=== PATIENT | female | born 1990 | race Caucasian/White ===

== ENCOUNTER 2020-10-22 01:51 | Emergency (ER) | payer OTHER, SELFPAY ==
[2020-10-22 01:59] VITALS: BP 130/78; PULSE 96; RESP 18; TEMP 37.1; O2SAT 98; BMI 20.6
--- NOTE | 2020-10-22 03:31 | ED.SKABFB ---
HPI - Skin/Abscess/Foreign Bdy General Chief complaint: Skin/Abscess/Foreign Body Stated complaint: infection Time Seen by Provider: 10/22/20 03:03 Source: patient Mode of arrival: ambulatory Limitations: no limitations History of Present Illness MD complaint: abscess/boil Onset (ago): day(s) (4) Tetanus up to date: yes Location: LUE Severity: moderate Quality: aching Pain Consistency: constant Relieving factors: none Exacerbating factors: movement Context: other (IVDA, hx of MRSA and boils, abscess noted then yesterday it drained on its own and she feels much better) Associated symptoms: denies other symptoms Treatments prior to arrival: bandages Related Data Previous Rx's Medication Instructions Recorded cephalexin 500 mg PO TID 7 Days #21 cap 10/22/20 doxycycline hyclate 100 mg PO BID 7 Days #14 cap 10/22/20 Allergies Allergy/AdvReac Type Severity Reaction Status Date / Time No Known Allergies Allergy Verified 10/22/20 01:57 [No Known Allergies*] Review of Systems Review of Systems: Constitutional : No Fever, No Chills ENT/Mouth : No sore throat, No Rhinorrhea Eyes: No Eye Pain, No Swelling, No Redness Cardiovascular : No Chest Pain, No SOB Respiratory : No Cough, No Sputum Gastrointestinal : No Nausea, No Vomiting, No Diarrhea, No abdominal Pain Genitourinary : No Dysuria, No Hematuria Musculoskeletal : No joint pain, No Myalgias, No Joint Swelling Skin : pos Skin Lesions, positive skin rash Neuro : No Weakness, No Numbness, No Headache Psych : No Anxiety, No Depression Heme/Lymph: No Bruising, No Bleeding, pos Lymphadenopathy Endocrine : No Polyuria, No Polydipsia All other systems reviewed and are negative [facility] Past Medical History Attestation statement: The following information was validated with the patient. Medical History (Updated 10/22/20 @ 04:24 by Fallon Mcfarlane DO) MRSA (methicillin resistant staph aureus) culture positive Opiate dependence Social History Social History (Updated 10/22/20 @ 04:02 by Fallon Mcfarlane DO) Smoking Status: Unknown if ever smoked Substance Use Type: Heroin and IV Drugs Advance Directives: No Advance Directives Information Provided: No Physical Exam Vital Signs: Vital Signs: Last Vital Signs Temp 98.9 F 05/19/21 03:58 Pulse 80 10/22/20 04:00 Resp 16 10/22/20 04:00 BP 116/59 L 10/22/20 04:00 Pulse Ox 98 10/22/20 04:00 Body Mass Index 20.6 Appearance: Alert. Oriented X3. No acute distress. mild nontender small less than 1cm lymph nodes in groin and ant cervical chain Eyes: Pupils equal, round and reactive to light. ENT: Pharynx normal. Neck: Normal inspection. Neck supple. CVS: Normal heart rate and rhythm. Pulses normal. Chest: soft mobile non fluctuant area noted 5 o clock r breast Respiratory: No respiratory distress. Breath sounds normal. Abdomen: Soft and nontender. Skin: Skin warm and dry. Normal skin color. Normal skin turgor. Extremities: No lower extremity edema. L posterior forearm - drained abscess with mild erythema and surrounding warmth no lymphangitis, distal NV intact Neuro: Oriented X 3. No motor deficit. No sensory deficit. MDM - Skin/Abscess/Foreign Bdy MDM Narrative Medical decision making narrative: 29 yo female with hx of IVDA and MRSA here with 4 days of boil that has self expressed no further fluctuance or drainage but has mild cellulitis - PO abx ordered, also c/o chronic LAD - cbc and HIV ordered, also c/o R breast lump noted 1 week ago - no signs of infection discussed follow up as outpatient for mammogram. Discharge Plan Discharge Clinical Impression: Cellulitis, Abscess Patient Disposition: Home, Self-Care Instructions: Cellulitis (ED) Additional Instructions: return to ED for any worsening symptoms or concerns monitor for worsening redness/fevers/drainage HIV test pending can take up to 3 days call family doctor for mammogram or [facility] [address] [phone] Prescriptions: New doxycycline hyclate 100 mg capsule 100 mg PO BID 7 Days Qty: 14 RF: 0 cephalexin 500 mg capsule 500 mg PO TID 7 Days Qty: 21 RF: 0 Referrals: Rosa Elena Morel MD [Primary Care Provider] - 2 days (if not better)
[2020-10-22 03:58] VITALS: BP 116/59; PULSE 82; RESP 18; TEMP 37.2; O2SAT 98
[2020-10-22] MEDS: cephALEXin 500 MG CAPSULE PO (03:59)
[2020-10-22 04:00] VITALS: BP 116/59; PULSE 80; RESP 16; O2SAT 98
[2020-10-22 04:25] LABS: Basophils Percent Auto 0.3 % (0-2); Eosinophils Percent Auto 0.5 % (0-4); Hematocrit 34.6 % (37-47); Hemoglobin 11.1 g/dl (12.0-16.0); Imm Gran Abs Auto 0.01 X10*3/uL (0.00-0.03); Imm Gran Pct Auto 0.2 % (0.0-0.4); Lymphocytes Absolute Auto 1.9 X10*3/uL (1.2-4.9); Lymphocytes Percent Auto 29.9 % (20-40); MANUAL DIFF FLAG NO; Mean Corpuscular HGB Conc 32.1 g/dl (31.0-35.0); Mean Corpuscular Hemoglobin 27.3 pg (27.0-33.0); Mean Corpuscular Volume 85.2 fL (80-98); Mean Platelet Volume 10.1 fL (9.4-12.3); Monocytes Absolute Auto 0.7 X10*3/uL (0.1-1.2); Monocytes Percent Auto 10.3 % (2-11); Neutrophils Absolute Auto 3.7 X10*3/uL (2.0-8.3); Neutrophils Percent Auto 58.8 % (45-73); Platelet Count 171 X10*3/uL (160-400); Red Blood Count 4.06 X10*6/uL (4.20-5.50); Red Cell Distribution Width 13.3 % (11.0-16.0); White Blood Count 6.3 X10*3/uL (4.8-10.8)
[2020-10-22 08:28] LABS: HIV AB/AG Nonreactive (Nonreactive); HIV Num 1 0.07 S/CO (0.00-0.99)
== END 2020-10-22 04:48 | disposition home or self-care (01) ==
PROVIDERS: Emergency Provider Emergency Medicine; PCP Internal Medicine
DX: L02.414 Cutaneous abscess of left upper limb (principal); L03.114 Cellulitis of left upper limb; M79.632 Pain in left forearm; Z79.899 Other long term (current) drug therapy; F11.90 Opioid use, unspecified, uncomplicated
CPT/HCPCS: 36415; 85025; 87389; 99284

== ENCOUNTER 2021-01-18 21:43 | Emergency (ER) | payer OTHER, SELFPAY ==
--- NOTE | ~2021-01-18 | US_ITS ---
EXAMINATION: US VENOUS WITH DOPPLER UPPER EXTREMITY, LEFT CLINICAL INFORMATION: Left upper extremity swelling. History of cocaine injection. COMPARISON: None TECHNIQUE: Ultrasound of the upper extremity is performed using compression sonography and color and pulse Doppler flow with assessment of augmentation of flow. There is also imaging and Doppler assessment of the jugular and subclavian veins. Spectral analysis with color-flow imaging is performed. FINDINGS: Respiratory variation, normal compression, and augmented flow are noted throughout the upper extremity including the axillary, brachial, cubital, and radial and ulnar veins. There is normal flow in the internal jugular and subclavian veins. There is no visible deep or superficial thrombophlebitis. If the patient's symptoms progress, a followup ultrasound in 5 -7 days might be of value to exclude proximal propagation from a nonvisualized distal arm vein. Multiple lymph nodes are noted in the arm, including in the vicinity of the subclavian vein measuring 2.8 x 0.5 x 1.5 cm, in the proximal upper arm measuring 1.4 x 0.6 x 0.7 cm and in the mid arm measuring 1.3 x 0.6 x 0.7 cm. Scanning in the area of open wound in the left upper forearm significant soft tissue edema with mild hyperemia is noted without discrete fluid collection. US/US venous duplex UE LT IMPRESSION: No DVT demonstrated in the left upper extremity. Soft tissue edema with mild hyperemia in the area of open wound in the left forearm, without discrete fluid collection. A few lymph nodes are noted in the arm as described above, most probably reactive.
[2021-01-18 21:46] VITALS: BP 120/73; PULSE 80; RESP 18; TEMP 37.1; O2SAT 97; BMI 20.5
--- NOTE | 2021-01-18 23:55 | ED.SKABFB ---
HPI - Skin/Abscess/Foreign Bdy General Chief complaint: Skin/Abscess/Foreign Body Stated complaint: Red Inflamed skin Time Seen by Provider: 01/18/21 22:11 Source: patient Mode of arrival: ambulatory Limitations: no limitations History of Present Illness HPI narrative: 30 y/o female with history of polysubstance abuse, current IV drug use with heroin and cocaine, on methadone 100 mg per day, history of multiple abscesses in the past with history of MRSA who presents with 4 days of red, painful left forearm abscess. She drained a significant amount of pus out of the abscess yesterday. She reports redness is spreading and her forearm is getting larger. She injected cocaine and heroin into the left forearm just before the redness and boil developed. She denies fever or chills at home. She has pain with movement of her arm but is able to fully extend and flex her elbow. She missed her last few days of methadone and has been using IV heroin and cocaine. MD complaint: abscess/boil Onset (ago): day(s) (4) Tetanus up to date: unsure Location: LUE Severity: severe Severity scale (1-10): 8 Quality: aching and sharp Pain Consistency: constant Relieving factors: rest Exacerbating factors: palpation and movement Context: IVDA Associated symptoms: denies other symptoms Treatments prior to arrival: attempted to drain pus at home Related Data Previous Rx's Medication Instructions Recorded cephalexin 500 mg capsule 500 mg PO TID 7 Days #21 cap 10/22/20 doxycycline hyclate 100 mg capsule 100 mg PO BID 7 Days #14 cap 10/22/20 cephalexin 500 mg capsule 500 mg PO Q6H 7 Days #28 cap 01/19/21 sulfamethoxazole 800 1 tab PO BID #20 tab 01/19/21 mg-trimethoprim 160 mg tablet (Bactrim DS) Allergies Allergy/AdvReac Type Severity Reaction Status Date / Time No Known Allergies Allergy Verified 10/22/20 01:57 [No Known Allergies*] Review of Systems Constitutional: Constitutional: Denies chills and Denies fever(s) Eyes: Eyes: Reports no additional eye complaints ENT: Denies neck pain and Denies sore throat Cardiovascular: Cardiovascular: Denies chest pain Respiratory: Respiratory: Denies cough and Denies wheezing Gastrointestinal: Gastrointestinal: Denies abdominal pain, Denies diarrhea, Denies nausea and Denies vomiting Genitourinary: Genitourinary: Denies dysuria Musculoskeletal: Musculoskeletal: Reports myalgias and Denies neck pain Integumentary/Breasts: Skin/Breast: Reports acne, Reports furuncle, Reports swelling, Reports lesions, Reports erythema, Reports skin pain, Reports skin swelling and Reports wounds Psychiatric: Psychiatric: Reports anxiety Hematologic/Lymphatic: Hematologic/Lymphatic: Denies easy bleeding, Denies easy bruising and Denies lymphadenopathy Allergic/Immunologic: Allergic/Immunologic: Denies wheezing PMFSH Past Medical History Attestation statement: The following information was validated with the patient. Medical History MRSA (methicillin resistant staph aureus) culture positive Opiate dependence Social History Social History (Updated 10/22/20 @ 04:02 by Fallon Mcfarlane DO) Substance Use Type: Heroin and IV Drugs Advance Directives: No Advance Directives Information Provided: No Patient : No Physical Exam Vital Signs: Vital Signs: Last Vital Signs Temp 98.4 F 01/18/21 23:58 Pulse 67 01/18/21 23:58 Resp 18 01/18/21 23:58 BP 105/52 L 01/18/21 23:58 Pulse Ox 100 01/18/21 23:58 Body Mass Index 20.5 Const: General: cooperative, comfortable, no acute distress, alert, awake and poor hygiene Nutritional Appearance: average body habitus Orientation/consciousness: patient oriented x3 Limitations: no limitations HENMT: Head: Yes normal to inspection Ears: hearing grossly normal bilaterally and external ears normal General nose exam: Normal external nose present and Normal nares present Face and sinus: Yes face symmetric and Yes other (scabbing lesions scattered on face) Mouth: Normal oral and palatal mucosa present, lip normal, tongue normal and moist mucous membranes Teeth and gingiva: dentition normal and gingiva normal Throat: Yes posterior oropharynx normal, Yes tonsils normal and Yes uvula midline Eyes: General: appearance normal, both eyes and all related structures Pupils: Equal, round and reactive pupils present EOM: EOMs intact bilaterally Neck: Neck: Yes normal visual inspection, Yes full ROM and Yes no lymphadenopathy Chest: Chest palpation & inspection: normal inspection of the chest Resp: Effort & Inspection: normal respiratory effort and able to speak in complete sentences Auscultation: clear to auscultation bilaterally Cardio: Rate: regular rate Rhythm: regular rhythm Heart sounds: S1 normal heart sound present and S2 normal heart sound present GI: Inspection: Yes normal to inspection Palpation (GI): Soft to palpation, not firm and nontender Auscultation: normal bowel sounds Neuro: General: patient oriented x3 Cranial nerves: Yes Equal, round and reactive pupils present Cognition (Neuro): normal cognition Course Course Course Narrative: 30 y/o female presenting with left forearm cellultis and abscess worsening over the last 4 days in the setting of IVDA. US of arm ordered for DVT r/o and soft tissue collection. IV abx, cultures ordered. Given exam finding she will likely require admission for IV abx. Reevaluation(s) Reevaluation #1: Difficult IV access. Attempted EJ by Dr Mcfarlane unsuccessful because patient was uncooperative. Reevaluation #2: US guided IV access established and labs sent. Patient spoke to several times about recommendation for admission, initially agreeable but ultimately she decided that she wants to leave the hospital. She wants to get back on her methadone. We discussed the risks of leaving against advice including sepsis, compartment syndrome, necrosis, and . She expressed understanding. Will discharge with PO antibiotics. Area on her left arm was marked. She left AMA at 1:45am. MDM - Skin/Abscess/Foreign Bdy Lab Data Result diagrams: 01/19/21 00:58 01/19/21 00:58 Labs: Lab Results 01/19/21 01/19/21 01/19/21 Range/Units 00:58 00:58 00:58 WBC 17.9 H (4.8-10.8) X10*3/uL RBC 4.11 L (4.20-5.50) X10*6/uL Hgb 11.1 L (12.0-16.0) g/dl Hct 34.6 L (37-47) % MCV 84.2 (80-98) fL MCH 27.0 (27.0-33.0) pg MCHC 32.1 (31.0-35.0) g/dl RDW 14.3 (11.0-16.0) % Plt Count 241 D (160-400) X10*3/uL MPV 10.2 (9.4-12.3) fL Immature Gran % (Auto) 0.4 (0.0-0.4) % Neut % (Auto) 82.6 H (45-73) % Lymph % (Auto) 10.8 L (20-40) % [place] % (Auto) 5.9 (2-11) % Eos % (Auto) 0.1 (0-4) % Baso % (Auto) 0.2 (0-2) % Lymph # (Auto) 1.9 (1.2-4.9) X10*3/uL [place] # (Auto) 1.1 (0.1-1.2) X10*3/uL Eos # (Auto) 0.0 (0.0-0.4) X10*3/uL Baso # (Auto) 0.0 (0.0-0.2) X10*3/uL Abs Immat Gran (auto) 0.07 H (0.00-0.03) X10*3/uL Absolute Neuts (auto) 14.8 H (2.0-8.3) X10*3/uL Absolute Nucleated RBC 0.000 (0.0-0.012) X10*3/uL Nucleated RBC % (auto) 0.0 (0.0-0.2) /100WBC Lactic Acid 1.6 (0.5-2.0) mmol/L COVID-19 (MARICARMEN) Negative (Negative) COVID-19 Clin Com See Note Discharge Plan Discharge Clinical Impression: Cellulitis, Abscess of skin or subcutaneous tissue Patient Disposition: Left Against Medical Advice Instructions: Cellulitis (ED), Abscess (ED), Warm Compress or Soak (ED) Additional Instructions: Use warm compresses to your arm several times per day. Take the antibiotics as prescribed. Come back to the ER at any time if you decide you are agreeable to admission or if any of your symptoms worsen. Prescriptions: New sulfamethoxazole-trimethoprim [Bactrim DS] 800-160 mg tablet 1 tab PO BID Qty: 20 RF: 0 cephalexin 500 mg capsule 500 mg PO Q6H 7 Days Qty: 28 RF: 0 No Action doxycycline hyclate 100 mg capsule 100 mg PO BID 7 Days Qty: 14 RF: 0 cephalexin 500 mg capsule 500 mg PO TID 7 Days Qty: 21 RF: 0 Stand Alone Forms: Against Medical Advice
[2021-01-18 23:58] VITALS: BP 105/52; PULSE 67; RESP 18; TEMP 36.9; O2SAT 100
--- NOTE | 2021-01-19 00:16 | PC.NURSE ---
Rn to bedside for IV insertion and blood work. Pt expressed her knowledge of being a difficult stick but agreed to allow this RN to look. After 1 unsuccessful attempt this RN notified the charge out clerk of the need for blood cultures x2, lactic acid, general labs and IV placement. hand mexican food maker and EDT to bedside for attempt
--- NOTE | 2021-01-19 00:31 | PC.NURSE ---
nursery worker returns to nurses station after failed iv attempt. RN did have to attempt access to the foot but was unable to advance the line. MD Mcfarlane to bedside for EJ placement as access has been unsuccessful despite multiple attempts by different staff members. MD Mcfarlane to obtain all necessary labs required at this time.
--- NOTE | 2021-01-19 00:47 | PC.NURSE ---
MD CAPUTO AND PA TO BEDSIDE TO ATTEMPT EJ AFTER FAIL PERIPHERL IV INSERTION X2. PER MD CAPUTO, PT MOVED WHILE INSERTING IV AND ACCIDENTALLY CAUSED THE LUMEN TO DISPLACE. PRESSURE APPLIED AND BLEEDING CONTROLLED. EDT REMAINED AT BEDSIDE TO PROVIDE SUPPORT AND COMFORT. PT AGREEABLE TO ALLOW INTERIM CONTROLLER TO PLACE US GUIDED IV; INTERIM CONTROLLER PRESENT ATTEMPTING IV PLACEMENT UNDER US AT THIS TIME.
--- NOTE | 2021-01-19 01:02 | PC.NURSE ---
coating line worker to bedside for US guided IV insertion; labs were collected however #18G to the right arm could not be threaded and was discontinued. Hospitalist to bedside to ask patient if she is agreeable to admission. Pt to be provided with food and beverage per request and provider approval. Pt refused her PO ativan that was ordered by PA as she stated well if they aren't going into my neck I don't think I need it. Pt will continue to be monitored
[2021-01-19 01:06] LABS: MANUAL DIFF FLAG NO
[2021-01-19 01:20] LABS: Basophils Percent Auto 0.2 % (0-2); Eosinophils Percent Auto 0.1 % (0-4); Hematocrit 34.6 % (37-47); Hemoglobin 11.1 g/dl (12.0-16.0); Imm Gran Abs Auto 0.07 X10*3/uL (0.00-0.03); Imm Gran Pct Auto 0.4 % (0.0-0.4); Lymphocytes Absolute Auto 1.9 X10*3/uL (1.2-4.9); Lymphocytes Percent Auto 10.8 % (20-40); Mean Corpuscular HGB Conc 32.1 g/dl (31.0-35.0); Mean Corpuscular Volume 84.2 fL (80-98); Mean Platelet Volume 10.2 fL (9.4-12.3); Monocytes Absolute Auto 1.1 X10*3/uL (0.1-1.2); Monocytes Percent Auto 5.9 % (2-11); Neutrophils Absolute Auto 14.8 X10*3/uL (2.0-8.3); Neutrophils Percent Auto 82.6 % (45-73); Platelet Count 241 X10*3/uL (160-400); Red Blood Count 4.11 X10*6/uL (4.20-5.50); Red Cell Distribution Width 14.3 % (11.0-16.0); White Blood Count 17.9 X10*3/uL (4.8-10.8)
[2021-01-19 01:23] LABS: COVID-19 Test Negative (Negative); IDNOW Serial# 9DD0AD1C
[2021-01-19 01:25] LABS: Lactic Acid 1.6 mmol/L (0.5-2.0)
--- NOTE | 2021-01-19 01:25 | PC.NURSE ---
EDT TO BEDSIDE TO EDUCATE PT ON PLAN FOR CHEM 7 REDRAW AND PT IS REFUSING TO ALLOW STAFF TO REDRAW HER AND IS REQUESTING DISCHARGE. PA MADE AWARE
[2021-01-19] MEDS: Ibuprofen 600 MG TABLET PO (01:45)
[2021-01-19] MEDS: cephALEXin 500 MG CAPSULE PO (01:45)
[2021-01-19 02:00] VITALS: BP 114/76; PULSE 84; RESP 20; O2SAT 99
== END 2021-01-19 02:19 | disposition left against medical advice (07) ==
PROVIDERS: Physician Assistant; Student in an Organized Health Care Education/Training Program; Emergency Provider Emergency Medicine; PCP Internal Medicine
DX: L03.114 Cellulitis of left upper limb (principal); F11.10 Opioid abuse, uncomplicated; F14.10 Cocaine abuse, uncomplicated; Z20.822 Contact with and (suspected) exposure to COVID-19; Z79.899 Other long term (current) drug therapy; Z71.51 Drug abuse counseling and surveillance of drug abuser
CPT/HCPCS: 36415; 83605; 85025; 87040; 87635; 93971; 96365; 96367; 99284

== ENCOUNTER 2021-01-20 19:43 | Emergency (ER) | payer OTHER, SELFPAY ==
[2021-01-20 21:21] VITALS: BP 103/48; PULSE 80; RESP 18; TEMP 37.1; O2SAT 99; BMI 20.5
[2021-01-20 22:49] LABS: Lactic Acid 1.6 mmol/L (0.5-2.0)
--- NOTE | 2021-01-21 02:12 | ED_ITS ---
HPI - Skin/Abscess/Foreign Bdy General Chief complaint: Wound/Laceration Stated complaint: ARM INFECTION Time Seen by Provider: 01/21/21 02:12 Source: patient Mode of arrival: ambulatory History of Present Illness HPI narrative: 30-year-old female presents with same left upper extremity cellulitis and pain that she was evaluated for on 01/18 and was discharged on antibiotics at that time patient states that the pain has worsened and that she is having difficulty with moving the upper extremity. She however is declining IV access and was informed that this poses difficulty with obtaining access to administer IV antibiotics, but she remains adamant. She states that she has been taking the antibiotics but that it does not seem to be helping. She describes chills but denies any fevers. Related Data Previous Rx's Medication Instructions Recorded cephalexin 500 mg capsule 500 mg PO TID 7 Days #21 cap 10/22/20 doxycycline hyclate 100 mg capsule 100 mg PO BID 7 Days #14 cap 10/22/20 cephalexin 500 mg capsule 500 mg PO Q6H 7 Days #28 cap 01/19/21 ibuprofen 400 mg tablet 400 mg PO Q8H PRN #10 tab 01/19/21 sulfamethoxazole 800 1 tab PO BID #20 tab 01/19/21 mg-trimethoprim 160 mg tablet (Bactrim DS) Allergies Allergy/AdvReac Type Severity Reaction Status Date / Time No Known Allergies Allergy Verified 01/20/21 21:21 [No Known Allergies*] Review of Systems Review of Systems: Pertinent positives and negatives as stated in HPI 10 point review of systems is otherwise negative. [facility] Past Medical History Source: nursing notes reviewed Medical History MRSA (methicillin resistant staph aureus) culture positive Opiate dependence Social History Social History Substance Use Type: Heroin and IV Drugs Advance Directives: No Advance Directives Information Provided: No Patient : No Physical Exam Vital Signs: Vital Signs: Last Vital Signs Temp 98.7 F 01/20/21 21:21 Pulse 96 01/21/21 02:54 Resp 16 01/21/21 02:54 BP 132/69 01/21/21 02:54 Pulse Ox 99 01/21/21 02:54 Body Mass Index 20.5 VITAL SIGNS: Reviewed. GENERAL: Chronically ill, well nourished, mild distress. HEAD: Normocephalic/atraumatic EYES: PERRLA, EOMI OROPHARYNX: no oral lesions noted, posterior pharynx clear LUNGS: Normal breath sounds. No adventitious sounds or accessory muscle use. SpO2<99> CARDIOVASCULAR: Regular rate and rhythm without noted murmurs ABDOMEN: Soft, non-tender, non-distended with bowel sounds. LEFT UPPER EXTREMITY WITH SIGNIFICANT CELLULITIS FROM WRIST PROXIMAL AND TO DISTAL UPPER ARM THAT IS TENSE, PULSES ARE PALPABLE SKIN: Inspection of the skin reveals no rashes, ulcerations, jaundice, pallor, or petechiae. NEUROLOGIC: Alert and oriented x 4. Strength and sensation to light touch were grossly intact x 4. Course Course Course Narrative: 30-year-old female with history and clinical presentation consistent with IVDA and again declining EJ as well as ultrasound peripheral IV access. She does have oral antibiotics and then informed by nursing staff the patient has eloped. MDM - Skin/Abscess/Foreign Bdy Lab Data Labs: Lab Results 01/20/21 01/21/21 01/21/21 Range/Units 21:54 02:31 02:31 Lactic Acid 1.6 (0.5-2.0) mmol/L Urine Test NEGATIVE (NEGATIVE) COVID-19 (MARICARMEN) Negative (Negative) COVID-19 Clin Com See Note Discharge Plan Discharge Clinical Impression: Abscess, Cellulitis of left upper extremity Patient Disposition: Elopement Prescriptions: No Action doxycycline hyclate 100 mg capsule 100 mg PO BID 7 Days Qty: 14 RF: 0 cephalexin 500 mg capsule 500 mg PO TID 7 Days Qty: 21 RF: 0 sulfamethoxazole-trimethoprim [Bactrim DS] 800-160 mg tablet 1 tab PO BID Qty: 20 RF: 0 cephalexin 500 mg capsule 500 mg PO Q6H 7 Days Qty: 28 RF: 0 ibuprofen 400 mg tablet 400 mg PO Q8H PRN (Reason: pain) Qty: 10 RF: 0 Interventions: ED Discharge Assessment Last Done: 01/21/21 04:04 Discharge Date/Time: 01/21/21 04:07
[2021-01-21 02:41] LABS: UPreg QC Valid YES; Urine Pregnancy NEGATIVE (NEGATIVE)
--- NOTE | 2021-01-21 02:51 | PC.NURSE ---
Multiple attempts to gain IV access but patient not cooperating. MD at bedside for EJ placement and patient refusing. Patient has no viable veins for IV access except EJ and she will not let MD place one.
[2021-01-21 02:54] VITALS: BP 132/69; PULSE 96; RESP 16; O2SAT 99
[2021-01-21 02:58] LABS: COVID-19 Test Negative (Negative)
[2021-01-21 04:48] LABS: Glucose Urine UA NEG (NEG); Leukocyte Esterase Urine 3+ (NEG); Nitrite Urine NEG (NEG); UACC Culture Trigger YES; Urine Blood 1+ (NEG); Urine Ketones 15 MG/DL (NEG); Urine Protein NEG (NEG-TRACE)
[2021-01-21 04:53] LABS: Appearance Urine HAZY; Color Urine YELLOW
[2021-01-21 04:54] LABS: Bacteria Urine 4+ /LPF; Mucus Urine 2+ /LPF; Squamous Epithelial Cell Urine 2+ /LPF; WBC Urine 30-49 /HPF (0-4)
[2021-01-21 05:30] LABS: Amphetamine Screen Urine Not Detected (Not Detect); Barbiturates, Urine Not Detected (Not Detect); Benzodiazepines Screen Urine Not Detected (Not Detect); Cannabinoid Screen Urine Not Detected (Not Detect); Cocaine Screen Urine POSITIVE (Not Detect); Fentanyl, urine POSITIVE (Not Detect); Opiate Screen Urine POSITIVE (Not Detect); Phencyclidine Screen Urine Not Detected (Not Detect)
== END 2021-01-21 04:07 | disposition left against medical advice (07) ==
PROVIDERS: Emergency Provider Student in an Organized Health Care Education/Training Program; PCP Internal Medicine
DX: L03.114 Cellulitis of left upper limb (principal); L02.414 Cutaneous abscess of left upper limb; F11.20 Opioid dependence, uncomplicated; Z86.14 Personal history of Methicillin resistant Staphylococcus aureus infection; Z20.822 Contact with and (suspected) exposure to COVID-19
CPT/HCPCS: 36415; 80307; 81001; 81025; 83605; 87040; 87086; 87635; 96365; 99283; 99284

== ENCOUNTER 2023-07-04 21:54 | Inpatient (IN) | payer OTHER, SELFPAY ==
--- NOTE | ~2023-07-04 | XR_ITS ---
EXAMINATION: XR FOOT, LEFT CLINICAL INFORMATION: Swelling, redness COMPARISON: None available. TECHNIQUE: AP, lateral, and oblique views of the left foot. FINDINGS: Osseous alignment is anatomic. No acute fracture is seen. Soft tissue swelling is noted along the dorsum of the foot. XR/XR foot LT 2V IMPRESSION: Dorsal soft tissue swelling. No acute osseous findings.
--- NOTE | ~2023-07-04 | XR_ITS ---
EXAMINATION: XR HAND, LEFT CLINICAL INFORMATION: Swelling, redness COMPARISON: None available. TECHNIQUE: PA, lateral, and oblique views of the left hand. FINDINGS: Osseous alignment is anatomic. No acute fracture is seen. Diffuse soft tissue swelling noted. XR/XR hand LT 2V IMPRESSION: Soft tissue swelling without acute osseous findings.
--- NOTE | ~2023-07-04 | CT_ITS ---
EXAMINATION: CT CHEST WITH CONTRAST CLINICAL INFORMATION: Shortness of breath, question pulmonary infarct, history of IV drug abuse COMPARISON: 01/03/2020 TECHNIQUE: Multidetector volumetric CT imaging of the chest was obtained after the administration of 65 mL of Omnipaque 350 intravenous contrast without immediate adverse reactions. Axial MIP volume rendering provided. Sagittal and coronal reformatted images were obtained. This CT examination was performed using dose optimization techniques as appropriate, variously including the following: *Automated exposure control *Adjustment of mA and/or kV according to patient size (this includes techniques or standardized protocols for targeted exams where dose is matched to indication/reason for exam; i.e. extremities or head) *Use of iterative reconstruction technique DLP: 175 mGy-cm FINDINGS: LUNGS: There is a 4 mm nodular focus in the left apex on image 75/531. There is a peripheral nodular focus in the anterior left lower lobe measuring 9 mm on image 296/531 with subtle adjacent groundglass opacity. Curvilinear opacity in the apical right upper lobe suggests atelectasis or scarring. There is also a small curvilinear opacity in the right middle lobe laterally. There is a 4 mm nodular focus in the right lower lobe on image 259/531. Minimal dependent atelectasis in the bilateral lower lobes. MEDIASTINUM: The visualized thyroid gland is unremarkable. Mild residual thymic tissue is suspected in the anterior mediastinum. There are subcentimeter mediastinal lymph nodes within the range of normal variation. Cardiac size is within normal limits; no pericardial effusion. The aorta is unremarkable. PLEURA: No pneumothorax or pleural effusion. AXILLA: There are several asymmetrically prominent left axillary lymph nodes measuring up to 1.1 cm in short axis dimension. No right axillary lymphadenopathy. UPPER ABDOMEN: Visualized spleen appears borderline enlarged. OSSEOUS STRUCTURES: Mild scattered degenerative endplate changes in the spine. CT/CT chest w IV con IMPRESSION: 1. Peripheral nodular focus in the anterior left lower lobe measuring 9 mm with subtle adjacent groundglass opacity. Given patient history, differential considerations could include a small focus of septic embolus or pulmonary infarct. Malignant etiology is considered overall less likely given patient age. However, in the absence of prior studies for comparison, follow-up chest CT in 3 months is recommended. 2. Few additional nodular foci as described above measuring up to 4 mm, for which attention on follow-up is recommended. 3. Several asymmetrically prominent left axillary lymph nodes measuring up to 1.1 cm in short axis dimension. These may be reactive given the history of IV drug use, though attention on follow-up is also recommended. 4. Visualized spleen appears borderline enlarged.
[2023-07-04 22:04] VITALS: BP 125/77; PULSE 91; RESP 16; TEMP 36.7; O2SAT 97; BMI 20.6
--- NOTE | 2023-07-05 00:10 | PC.NURSE ---
at bedside attempting ultrasound guided IV.
--- NOTE | 2023-07-05 00:22 | PC.NURSE ---
Addendum entered by Penny Nassar 07/05/23 05:53: left foot and right hand swelling Original Note: pt from home reporting onset of right hand swelling and right foot swelling for 3 days. pt reports she has been seen for this in the past. pt reports pain to the right foot but denies pain to the hand. pt reports it hurts to walk on the foot at times. dr. whitfield at bedside and placed ultrasound guided IV, 20G placed, labs obtained and sent to lab.
[2023-07-05 00:27] LABS: MANUAL DIFF FLAG NO
[2023-07-05 00:29] LABS: Basophils Percent Auto 0.3 % (0-2); Hematocrit 35.1 % (37.0-47.0); Hemoglobin 11.2 g/dl (12.0-16.0); Imm Gran Abs Auto 0.03 X10*3/uL (0.00-0.03); Imm Gran Pct Auto 0.4 % (0.0-0.4); Mean Corpuscular HGB Conc 31.9 g/dl (31.0-35.0); Mean Corpuscular Hemoglobin 26.4 pg (27.0-33.0); Mean Corpuscular Volume 82.6 fL (80.0-98.0); Monocytes Absolute Auto 0.4 X10*3/uL (0.1-1.2); Monocytes Percent Auto 5.7 % (2-11); Neutrophils Absolute Auto 5.9 x10*3/uL (2.0-8.3); Neutrophils Percent Auto 80.6 % (45-73); Platelet Count 160 X10*3/uL (160-400); Red Blood Count 4.25 X10*6/uL (4.20-5.50); Red Cell Distribution Width 13.4 % (11.0-16.0); White Blood Count 7.3 X10*3/uL (4.8-10.8)
[2023-07-05 00:37] VITALS: BP 104/47; PULSE 55; RESP 14; TEMP 37.4; O2SAT 98
--- NOTE | 2023-07-05 00:37 | ED_ITS ---
HPI - Extremity Problem General Chief complaint: Extremity Problem Stated complaint: left hand and foot swollen Time Seen by Provider: 07/04/23 23:46 Source: patient Mode of arrival: ambulatory History of Present Illness HPI Narrative: 32-year-old female reports that she last used 3 days ago, comes in with worsening left hand swelling with warmth and redness in reports significant pain that started yesterday. Patient also reports right foot swelling on the dorsum with warmth and pain. Related Data Previous Rx's Medication Instructions Recorded cephalexin 500 mg capsule 500 mg PO TID 7 days #21 caps 10/22/20 doxycycline hyclate 100 mg capsule 100 mg PO BID 7 days #14 caps 10/22/20 cephalexin 500 mg capsule 500 mg PO Q6H 7 days #28 caps 01/19/21 ibuprofen 400 mg tablet 400 mg PO Q8H PRN pain #10 tabs 01/19/21 sulfamethoxazole 800 1 tab PO BID #20 tabs 01/19/21 mg-trimethoprim 160 mg tablet (Bactrim DS) Allergies Allergy/AdvReac Type Severity Reaction Status Date / Time No Known Allergies Allergy Verified 07/04/23 22:04 [No Known Allergies*] Review of Systems 2 Review of Systems: Pertinent positives and negatives as stated in HPI [facility] Past Medical History Source: nursing notes reviewed Medical History Opiate dependence MRSA (methicillin resistant staph aureus) culture positive Social History Social History Alcohol intake: never Smoked in Last 30 Days: Yes Use of substances other than those prescribed or required for medical reasons: Yes Substance Use Type: Heroin and IV Drugs Advance Directives: No Advance Directives Information Provided: No Patient : No Physical Exam 2 Vital Signs: Vital Signs: Last Vital Signs Temp 99.3 F 07/05/23 00:37 Pulse 55 07/05/23 00:37 Resp 14 07/05/23 00:37 BP 104/47 L 07/05/23 00:37 Pulse Ox 98 07/05/23 00:37 O2 Del Method Room Air 07/05/23 00:37 BMI result Body Mass Index 20.6 VITAL SIGNS: Reviewed. GENERAL: Well developed, well nourished, in no acute distress. HEAD: Normocephalic/atraumatic EYES: PERRLA, EOMI EARS: Ext canals without abnormality NOSE: Nares patent bilateral OROPHARYNX: no oral lesions noted, posterior pharynx clear NECK: Supple, no adenopathy LUNGS: Normal breath sounds. No adventitious sounds or accessory muscle use. SpO2<97> CARDIOVASCULAR: Regular rate and rhythm without noted murmurs ABDOMEN: Soft, non-tender, non-distended with bowel sounds. MUSCULOSKELETAL: No tenderness, deformities, or effusions noted on gross inspection. EXTREMITIES: No cyanosis, clubbing or edema. LEFT HAND: Swelling, erythema to dorsum of left hand, there are several areas of pustules to all tips of finger and a site noted on the palmar aspect over the palmar index MTP LEFT FOOT: Swelling, erythema to dorsum of left foot, obvious injection sites noted. SKIN: Inspection of the skin reveals no rashes NEUROLOGIC: Alert and oriented x 4. Strength and sensation to light touch were grossly intact x 4. Medications Administered Generic Name Dose Route Start Last Admin Trade Name Freq PRN Reason Stop Dose Admin Vancomycin HCl 1,500 mg/ 500 mls @ 333.333 mls/hr 07/05/23 01:15 07/05/23 01:31 Sodium Chloride IV 07/05/23 02:44 333.33 mls/hr ONCE ONE Administration Discontinued Medications Generic Name Dose Route Start Last Admin Trade Name Freq PRN Reason Stop Dose Admin Vancomycin HCl 1,000 mg/ 270 mls @ 270 mls/hr 07/05/23 00:37 07/05/23 01:07 Sodium Chloride IV 07/05/23 01:36 Not Given ONCE ONE Sodium Chloride 1,000 mls @ 999 mls/hr 07/05/23 00:45 07/05/23 02:15 Ns IV 07/05/23 01:45 Infused .Q1H1M MAXIMO Infusion Ceftriaxone Sodium 2 gm/ 50 mls @ 100 mls/hr 07/05/23 00:39 07/05/23 01:25 Sodium Chloride IV 07/05/23 01:08 Infused ONCE ONE Infusion Medical Decision Making Medical Decision Making [facility] Narrative: 32-year-old female with history and clinical presentation, DDX: Cellulitis, some suspicion for endocarditis given appearance of lesions at left hand fingers but no murmur appreciated. I reviewed all investigations and hematologic indices do not demonstrate a leukocytosis that there is a significant left shift, there is a stable normocytic anemia but no thrombocytopenia. Chemistry indices do not demonstrate an ANGIE or electrolyte derangements however there is a noted bump in AST-61 and CRP-14.95. Patient received initial antibiotics as well as IV fluids. 0200: I discussed the case with inpatient hospitalist who accepts admission but is requesting for a CT chest with IV contrast. Differential Diagnosis Differential Diagnoses: The differential diagnosis associated with the presentation includes Please see the discussion above Admission/Observation Consideration of admission/observation: Escalation of care including admission/observation considered Please see the discussion above Consult Healthcare Provider Management of the patient was discussed with: Hospitalist Please see the discussion above Lab Data MDM Lab Attestation statement: I reviewed the patient's lab results. Please see the discussion above 07/05/23 00:16 07/05/23 00:54 Labs: Lab Results 07/05/23 07/05/23 Range/Units 00:16 00:54 WBC 7.3 (4.8-10.8) X10*3/uL RBC 4.25 (4.20-5.50) X10*6/uL Hgb 11.2 L (12.0-16.0) g/dl Hct 35.1 L (37.0-47.0) % MCV 82.6 (80.0-98.0) fL MCH 26.4 L (27.0-33.0) pg MCHC 31.9 (31.0-35.0) g/dl RDW 13.4 (11.0-16.0) % Plt Count 160 (160-400) X10*3/uL MPV 10.0 (9.4-12.3) fL Immature Gran % (Auto) 0.4 (0.0-0.4) % Neut % (Auto) 80.6 H (45-73) % Lymph % (Auto) 13.0 L (20-40) % [place] % (Auto) 5.7 (2-11) % Eos % (Auto) 0.0 (0-4) % Baso % (Auto) 0.3 (0-2) % Lymph # (Auto) 1.0 L (1.2-4.9) X10*3/uL [place] # (Auto) 0.4 (0.1-1.2) X10*3/uL Eos # (Auto) 0.0 (0.0-0.4) X10*3/uL Baso # (Auto) 0.0 (0.0-0.2) X10*3/uL Abs Immat Gran (auto) 0.03 (0.00-0.03) X10*3/uL Absolute Neuts (auto) 5.9 (2.0-8.3) x10*3/uL Absolute Nucleated RBC 0.000 (0.0-0.012) X10*3/uL Nucleated RBC % (auto) 0.0 (0.0-0.2) /100WBC ESR 46 H (0-20) MM/HR Sodium 141 (135-145) mmol/L Potassium 3.3 (3.3-5.1) mmol/L Chloride 107 (96-108) mmol/L Carbon Dioxide 26 (22-29) mmol/L Anion Gap 11 L (12-20) BUN 13 (9-16) mg/dL Creatinine 0.76 (0.5-1.4) mg/dL Estim Creat Clear Calc 89.6 Estimated GFR > 60 Random Glucose 90 (60-115) mg/dL Lactic Acid 1.3 (0.5-2.0) mmol/L Calcium 8.4 (8.4-10.2) mg/dL Total Bilirubin 0.3 (0.0-1.0) mg/dL AST 61 H (5-31) U/L ALT 28 (0-31) U/L Alkaline Phosphatase 64 (39-117) U/L C-Reactive Protein 14.95 H (< or = 0.50) mg/dL Total Protein 6.9 (6.5-8.0) g/dL Albumin 3.4 L (3.5-5.0) g/dL External Record Review External record reviewed: Outpatient record and Prior outpatient labs Chronic Conditions IVDA Social Determinants Patient?s care significantly limited by Social Determinants of Health including: Alcoholism and drug addiction in family Procedures EJ/Peripheral Line Arm R: Time Out Performed: No Skin Cleansed in Sterile Fashion: Yes Size (gauge): 18 IV Secured and Dressing Applied: Yes Patient Tolerated Procedure: well Additional Comments: Peripheral line placed under ultrasound guidance. Critical Care Time Critical Care Time Critical Care Time: Yes Total Critical Care Time: 30 Attestation: I personally attest to this time spent taking care of the patient. Discharge Plan Discharge Clinical Impression: Cellulitis of hand, Cellulitis of foot Patient Disposition: Admitted As Inpatient Prescriptions: No Action doxycycline hyclate 100 mg capsule 100 mg PO BID 7 Days Qty: 14 0RF cephalexin 500 mg capsule 500 mg PO TID 7 Days Qty: 21 0RF sulfamethoxazole-trimethoprim [Bactrim DS] 800-160 mg tablet 1 tab PO BID Qty: 20 0RF cephalexin 500 mg capsule 500 mg PO Q6H 7 Days Qty: 28 0RF ibuprofen 400 mg tablet 400 mg PO Q8H PRN (Reason: pain) Qty: 10 0RF
[2023-07-05 00:40] LABS: Lactic Acid 1.3 mmol/L (0.5-2.0)
[2023-07-05] MEDS: cefTRIAXone sodium 2 GM in 0.9 % Sodium Chloride 50 ML IV (00:55)
[2023-07-05] MEDS: 0.9 % Sodium Chloride 1,000 ML 999 ML IV (00:55)
--- NOTE | 2023-07-05 00:58 | PC.NURSE ---
pt medicated per mar at this time.
[2023-07-05 01:18] LABS: Alanine Aminotransferase 28 U/L (0-31); Albumin Level 3.4 g/dL (3.5-5.0); Alkaline Phosphatase 64 U/L (39-117); Anion Gap 11 (12-20); Aspartate Amino Transferase 61 U/L (5-31); Bilirubin Total 0.3 mg/dL (0.0-1.0); Blood Urea Nitrogen 13 mg/dL (9-16); C Reactive Protein 14.95 mg/dL (< or = 0.50); Calcium 8.4 mg/dL (8.4-10.2); Carbon Dioxide 26 mmol/L (22-29); Chloride 107 mmol/L (96-108); Creatinine Clr Calc Pharmacy 89.6; Estimated Glomerular Filt Rate > 60; Glucose Random 90 mg/dL (60-115); Potassium 3.3 mmol/L (3.3-5.1); Sodium 141 mmol/L (135-145); Total Protein 6.9 g/dL (6.5-8.0)
[2023-07-05] MEDS: vancomycin HCL 1,500 MG in 0.9 % Sodium Chloride 500 ML 333.33 MG IV (01:31)
[2023-07-05 01:57] LABS: Erythrocyte Sedimentation Rate 46 MM/HR (0-20)
--- NOTE | 2023-07-05 02:19 | ECG_ITS ---
Test Reason : IV Drug Use Blood Pressure : / mmHG Vent. Rate : 056 BPM Atrial Rate : 056 BPM P-R Int : 152 ms QRS Dur : 076 ms QT Int : 470 ms P-R-T Axes : 061 041 052 degrees QTc Int : 453 ms Sinus bradycardia Otherwise normal ECG When compared with ECG of 22-NOV-2019 03:21, No significant change was found Referred By: Gabriella Tyler Electronically Signed By:LIZETH LEE MD
[2023-07-05 02:50] VITALS: BP 100/54; PULSE 59; RESP 14; TEMP 36.9; O2SAT 99
[2023-07-05 03:06] LABS: HCG Quantitative < 2 mIU/mL
--- NOTE | 2023-07-05 03:07 | PC.NURSE ---
provider aware of pt BP at this time, no new orders.
[2023-07-05] MEDS: Lactated Ringers 1,000 ML 999 ML IV (03:32)
--- NOTE | 2023-07-05 03:33 | PC.NURSE ---
pt medicated per aug. pt returned from CT at this time.
[2023-07-05] MEDS: iohexoL 350 MG/ML 100 ML INFUS..BTL 65 ML IV (03:34)
--- NOTE | 2023-07-05 04:26 | PM.IMHP ---
History of Present Illness Date of Service: 07/05/23 Chief Complaint: Left hand and foot swelling This is a 32-year-old female with pertinent history of IV drug use disorder who presents to the emergency department for evaluation of left hand and foot swelling. Patient states that the swelling and redness worsened over the last 48 hours. No drainage from left hand or foot. Patient also has painful nodules on the tip of fingers of her left hand. Is able to make wrist. States she uses IV drugs only in her lower extremities. To dorsal aspect of her left foot is with pain, swelling and redness. She last used IV drugs 3 days prior to presentation. States she does have a history of skin infections in the past. Admits intermittent cough. Denies fever, chills, chest discomfort, palpitations, shortness of breath, abdominal pain, changes in urinary or bowel habits. In the emergency department, imaging with soft tissue swelling of the left hand and foot. Also CT chest concerning for septic embolus. Review of Systems Constitutional: Constitutional: Reports fatigue and Reports malaise Cardiovascular: Cardiovascular: Reports no additional cardiovascular complaints Respiratory: Respiratory: Reports cough Gastrointestinal: Gastrointestinal: Reports no additional gastrointestinal complaints Genitourinary: Genitourinary: Reports no additional female genitourinary complaints Musculoskeletal: Musculoskeletal: Reports arthralgias and Reports joint swelling Endocrine: Endocrine: Reports fatigue PMFSH Medical History Opiate dependence MRSA (methicillin resistant staph aureus) culture positive Pertinent family history: No family history of early CAD Social History Alcohol intake: never Smoked in Last 30 Days: Yes Use of substances other than those prescribed or required for medical reasons: Yes Substance Use Type: Heroin and IV Drugs Advance Directives: No Advance Directives Information Provided: No Patient : No Meds Allergies Allergy/AdvReac Type Severity Reaction Status Date / Time No Known Allergies Allergy Verified 07/04/23 22:04 [No Known Allergies*] Physical Exam Vital Signs and Narrative: Vital Signs: Last Vital Signs Temp 98.5 F 07/05/23 02:50 Pulse 59 07/05/23 02:50 Resp 14 07/05/23 02:50 BP 100/54 L 07/05/23 02:50 Pulse Ox 99 07/05/23 02:50 O2 Del Method Room Air 07/05/23 02:50 BMI result Body Mass Index 20.6 Middle-aged female lying in bed in no distress Neck supple, no JVD Regular rate and rhythm, S1-S2 heard, murmur+ Left-sided crackles + Abdomen soft nontender, no guarding, no rigidity Patient is awake, alert and oriented to self, place, time and person ; no focal motor deficit Skin: Left hand with swelling, erythema and pain on the dorsal surface, tender nodules on the tip of fingers of the left hand, erythematous macule on the palm ; left dorsal foot with erythema, swelling and tenderness ; multiple track castillo seen Psych: Normal mood No pedal edema Results Labs 07/05/23 00:16 07/05/23 00:54 Labs: Laboratory Results - last 24 hr 07/05/23 07/05/23 00:16 00:54 MCV 82.6 MCH 26.4 L MCHC 31.9 RDW 13.4 Plt Count 160 MPV 10.0 Immature Gran % (Auto) 0.4 Neut % (Auto) 80.6 H Lymph % (Auto) 13.0 L [place] % (Auto) 5.7 Eos % (Auto) 0.0 Baso % (Auto) 0.3 Lymph # (Auto) 1.0 L [place] # (Auto) 0.4 Eos # (Auto) 0.0 Baso # (Auto) 0.0 Abs Immat Gran (auto) 0.03 Absolute Neuts (auto) 5.9 Absolute Nucleated RBC 0.000 Nucleated RBC % (auto) 0.0 ESR 46 H Anion Gap 11 L Estim Creat Clear Calc 89.6 Estimated GFR > 60 Random Glucose 90 Lactic Acid 1.3 Calcium 8.4 Total Bilirubin 0.3 AST 61 H ALT 28 Alkaline Phosphatase 64 C-Reactive Protein 14.95 H Total Protein 6.9 Albumin 3.4 L Beta HCG, Quant < 2 Imaging Radiologist's Impressions: Impressions Chest CT 07/05/23 03:30 IMPRESSION: 1. Peripheral nodular focus in the anterior left lower lobe measuring 9 mm with subtle adjacent groundglass opacity. Given patient history, differential considerations could include a small focus of septic embolus or pulmonary infarct. Malignant etiology is considered overall less likely given patient age. However, in the absence of prior studies for comparison, follow-up chest CT in 3 months is recommended. 2. Few additional nodular foci as described above measuring up to 4 mm, for which attention on follow-up is recommended. 3. Several asymmetrically prominent left axillary lymph nodes measuring up to 1.1 cm in short axis dimension. These may be reactive given the history of IV drug use, though attention on follow-up is also recommended. 4. Visualized spleen appears borderline enlarged. Foot X-Ray 07/05/23 03:32 IMPRESSION: Dorsal soft tissue swelling. No acute osseous findings. Hand X-Ray 07/05/23 03:32 IMPRESSION: Soft tissue swelling without acute osseous findings. Assessment and Plan (1) Septic embolism: Status: Acute (2) Cellulitis of foot: Status: Acute (3) Cellulitis of hand: Status: Acute Plan This is a 32-year-old female with pertinent history of IV drug use disorder who presents to the emergency department for evaluation of left hand and foot swelling. #. Septic emboli / cellulitis of left hand and foot: Will admit patient and initiate empiric IV antibiotics. Three sets of blood cultures obtained. Obtaining echo to look at the anatomy of valves. #. IV drug use disorder: Consulted Addiction Team, appreciate assistance. Monitor for withdrawal. UDS pending DVT prophylaxis: Lovenox Full code Admit as inpatient and will require two night minimum hospital stay for IV antibiotics (as above), which is not possible in a lesser acute setting. Quality Stroke Does the patient have a stroke diagnosis?: No VTE Prior VTE?: No VTE Risk Level:: Medical - moderate - high VTE Device Contraindication: Treatment Not Indicated VTE Drug Contraindication: N/A - Med Ordered
[2023-07-05 05:38] VITALS: BP 105/67; PULSE 64; RESP 14; O2SAT 97
[2023-07-05] MEDS: Acetaminophen 325 MG TABLET 650 MG PO ×2 (05:53→22:10)
[2023-07-05 06:18] LABS: Anion Gap 9 (12-20); Blood Urea Nitrogen 8 mg/dL (9-16); Calcium 7.7 mg/dL (8.4-10.2); Carbon Dioxide 25 mmol/L (22-29); Chloride 110 mmol/L (96-108); Creatinine Clr Calc Pharmacy 103.2; Estimated Glomerular Filt Rate > 60; Glucose Random 94 mg/dL (60-115); Potassium 3.6 mmol/L (3.3-5.1); Sodium 140 mmol/L (135-145)
[2023-07-05 06:28] LABS: Basophils Percent Auto 0.2 % (0-2); Eosinophils Percent Auto 0.4 % (0-4); Hemoglobin 9.6 g/dl (12.0-16.0); Imm Gran Abs Auto 0.01 X10*3/uL (0.00-0.03); Imm Gran Pct Auto 0.2 % (0.0-0.4); Lymphocytes Absolute Auto 1.5 X10*3/uL (1.2-4.9); Lymphocytes Percent Auto 29.4 % (20-40); MANUAL DIFF FLAG SCAN; Mean Corpuscular Hemoglobin 26.6 pg (27.0-33.0); Mean Corpuscular Volume 83.1 fL (80.0-98.0); Mean Platelet Volume 10.6 fL (9.4-12.3); Monocytes Absolute Auto 0.4 X10*3/uL (0.1-1.2); Monocytes Percent Auto 8.4 % (2-11); Neutrophils Absolute Auto 3.2 x10*3/uL (2.0-8.3); Neutrophils Percent Auto 61.4 % (45-73); PLT CLUMP 1; Red Blood Count 3.61 X10*6/uL (4.20-5.50); Red Cell Distribution Width 13.4 % (11.0-16.0); SCAN SMEAR FLAG 1
[2023-07-05 06:45] LABS: Platelet Count 111 X10*3/uL (160-400); White Blood Count 5.2 X10*3/uL (4.8-10.8)
[2023-07-05 06:46] LABS: SLIDE REVIEW VERIFIED
--- NOTE | 2023-07-05 07:00 | CA_ITS ---
Transthoracic Echocardiogram Patient (Last, First, Middle): Janell Moore, Gender: Female Date of : 1990 Age: 32 Procedure Date: 07/05/2023 Procedure Type: Transthoracic Echocardiogram Location: ER Height: 162.56 cm Weight: 54.43 kg BSA: 1.57 m2 Heart Rate: 49 bpm BP: 105 / 67 mmHg Director Market Intelligence: EVERETT Referring MD: Rosamaria Cox MD Licensed Club Manager: Solo Fuentes MD Symptoms: ?endocarditis Study Quality: Adequate ECG Rhythm: Bradycardia Conclusions: - Normal study with mild tricuspid regurgitation no clear evidence of large vegetatiions Findings Left Ventricle Normal left ventricular size, thickness, and systolic function. The visually estimated ejection fraction is between 65-70%. Spectral Doppler is indicative of a normal filling pattern. Right Ventricle Normal right ventricular cavity size and systolic function. Atria Both atria are normal in size. There is no evidence of interatrial shunt. Aortic Valve Normal aortic valve structure and function. There is no aortic valve stenosis. There is no aortic valve regurgitation. Mitral Valve Normal mitral valve structure and function. There is trace mitral valve regurgitation. There is no mitral valve stenosis. Pulmonic Valve The pulmonic valve is likely normal. There is trace to mild pulmonic valve regurgitation. Tricuspid Valve Normal tricuspid valve structure. There is mild tricuspid valve regurgitation. The right ventricular systolic pressure is normal. The right ventricular systolic pressure is 21 mmHg. Normal right atrial pressure. There is no evidence of pulmonary hypertension. Great Vessels All visible segments of the aorta are normal in size. The visualized portions of the pulmonary artery and branches are normal. Venous The inferior vena cava is normal in size and collapses greater than 50% with inspiration. Pericardium/Pleural There is no evidence of pericardial effusion. Prior Study Comparison No prior study available for comparison. Measurements 2D Linear Measurements IVSd: 0.75 0.6-0.9/0.6-1.0 cm LVIDd: 4.88 3.9-5.3/4.2-5.9 cm LVIDd Index: 3.11 2.4-3.2/2.2-3.1 cm/m2 LVIDs: 3.04 2.0-3.6 cm LVPWd: 0.45 0.7-1.1 cm LA Diam: 3.70 2.7-3.8/3.0-4.0 cm LAIDs Index: 2.36 1.5-2.3 cm/m2 LV Mass: 112.31 67-162/88-224 g LV Mass Index: 71.53 43-95/49-115 g/m2 LVOT Diam: 2.00 3.0+(-)1.3 cm 2D Systolic Function EF 4C: 70.10 >55% EF 2C: 65.00 >55% EF BiP: 67.80 >55% Mitral Valve MV Pk E: 0.94 MV PK A: 0.28 MV Decel Time: 206.00 E/A: 3.30 E'Lateral: 15.90 E'Medial: 11.30 E/E' Med: 8.30 E/E' Lat: 5.90 PHT: 60.00 MVA PHT: 3.67 Decel [place]: 4.55 Aortic Valve AoV Pk Jossue: 1.15 AoV Mn Jossue: 0.84 AoV VTI: 0.30 AoV Pk Grad: 5.00 Aov Mn Grad: 3.00 JAJA Cont.VTI: 2.46 LVOT LVOT Pk [place]ossue: 0.99 LVOT Mn [place]ossue: 0.69 LVOT VTI: 0.23 LVOT Pk Grad: 4.00 LVOT Mn Grad: 2.00 LVOT Diam: 2.00 LVOT Area: 3.14 Diastolic Function MV Pk E: 0.94 MV Pk A: 0.28 E/A: 3.30 E'Medial: 11.30 E/E' Med: 8.30 E' Laterial: 15.90 E/E' Lat: 5.90 Right Ventricle TAPSE (mm): 21.70 TVS' Jossue: 13.50 Tricuspid Valve TR Pk Jossue: 2.14 TR Pk Grad: 18.00 RA Press: 3.00 RVSP: 21.00 Great Vessels Aorta Sinus of Valsalva: 2.90 2.0-3.5 cm Ao Asc: 2.70 2.1-3.4 cm Pulmonary Veins Pulm Vein S/D 1.90 Pulmonary Valve PV Pk Jossue: 0.81 Peak PV Grad: 3.00 Updated in Other Vendor System with Status of Final Solo Fuentes MD electronically signed on 07/06/2023 3:46:13 PM with status of Final
[2023-07-05 08:30] VITALS: BP 101/52; PULSE 50; RESP 15; TEMP 37; O2SAT 94
--- NOTE | 2023-07-05 08:47 | PHA.MEDREC ---
Pharmacy Consult ? Medication Reconciliation Pharmacy has completed the medication reconciliation. Spoke with patient in the ED who knew meds. Patient recently changed from sertraline to fluoxetine
--- NOTE | 2023-07-05 08:51 | PHA.PROG ---
Admission Date/Time: July 05, 2023 04:24 Indication: skin Weight in k.431 kg Adjusted body weight in K.592 [place] body weight in K.7 Obesity Dosing Indication % IBW: not obese Serum Creatinine - Last 168 Hours 07/05/23 07/05/23 00:54 05:50 Creatinine 0.76 0.66 Estimated CrCl and GFR - Last 168 Hours 07/05/23 07/05/23 00:54 05:50 Estim Creat Clear Calc 89.6 103.2 Estimated GFR > 60 > 60 Vancomycin Loading Dose: 1500 mg Current Vancomycin Dosing Regimen: 1000 mg Q12H Vancomycin Monitoring using AUC goal of 400 - 600 range with trough as surrogate marker: 500 Date and Time for next Vancomycin Level to be drawn: 07/06 @1100 Pharmacist Comments on Vancomycin Plan: Vancomycin dosing will take advantage of [employer] as a clinical decision support tool that uses Bayesian modeling to calculate individual patient's pharmacokinetic parameters and forecast the patient's drug concentration time course with the target goal AUC 24 range of 400 - 600 mg/L/hr.
--- NOTE | 2023-07-05 11:29 | PM.EVENT ---
Event Note Date of Service: 07/05/23 Event Note: 32-year-old female with pertinent history of IV drug use disorder who presents to the emergency department for evaluation of left hand and foot swelling. Septic emboli / cellulitis of left hand and foot empiric IV antibiotics. blood cx obtaines echo to look at the anatomy of valves. IV drug use disorder Consulted Addiction Team patient on methadone 120mg [facility] [place] [facility]. RN/Pharmacy to verify Monitor for withdrawal. DVT prophylaxis: Lovenox Attensing Dr. Cano Full code Admit as inpatient and will require two night minimum hospital stay for IV antibiotics (as above), which is not possible in a lesser acute setting. Time Spent With Patient Time: Total time managing care of this patient today ____ minutes.
--- NOTE | 2023-07-05 12:29 | HE.PHANOTE ---
Methadone Methadone verification dose received. Patient last got dose on 07/03/23 @1000 per [place]. Dose is 120 mg.
--- NOTE | 2023-07-05 12:32 | MHC.CM.PN ---
pt is independent has own ride home not expected to need servies
[2023-07-05] MEDS: vancomycin HCL 1,000 MG in 0.9 % Sodium Chloride 250 ML 270 MG IV (13:44)
[2023-07-05] MEDS: methADONE HCl 20 MG/2 ML ORAL.CONC 120 MG PO (13:44)
[2023-07-05 15:55] VITALS: BP 103/62; PULSE 50; RESP 12; TEMP 36.4; O2SAT 96
--- NOTE | 2023-07-05 17:40 | PM.EVENT ---
Event Note Date of Service: 07/05/23 Event Note: Addiction consult placed Chart reviewed. Methadone verified and ordered. Will see in AM (07/06) Time Spent With Patient Time: Total time managing care of this patient today ____ minutes.
--- NOTE | 2023-07-05 21:55 | PC.NURSE ---
Patient hasn't gotten out of bed all day. Will remind her we need a urine. Patient is pleasant.
[2023-07-05] MEDS: Gabapentin 300 MG CAPSULE PO (22:07)
[2023-07-05] MEDS: Melatonin 3 MG TABLET 6 MG PO (22:07)
[2023-07-05 22:53] VITALS: BP 100/57; PULSE 53; RESP 16; TEMP 36.7; O2SAT 97
--- NOTE | 2023-07-05 23:41 | PC.NURSE ---
assumed care of pt at 2300 - pt resting comfortably on stretcher respirations even and unlabored, call park within reach plan of care ongoing . pt waiting for bed up on medsur.
[2023-07-06] MEDS: vancomycin HCL 1,000 MG in 0.9 % Sodium Chloride 250 ML 270 MG IV (02:06)
--- NOTE | 2023-07-06 02:16 | PC.NURSE ---
pt medicated per mar, resting comfortably on stretcher, respirations even ad unlabored, pt woke to voice, offers no current complaints, denies pain. needs met, call park within reach.
[2023-07-06 04:10] VITALS: BP 103/62; PULSE 50; RESP 17; TEMP 36.4; O2SAT 98
--- NOTE | 2023-07-06 04:55 | PC.NURSE ---
pt refused lab draw from phlebotomy. this RN tried to pull labs from iv line but unsuccessful draw back. no labs obtained at this time. MD Cox made aware
[2023-07-06 05:19] LABS: Amphetamine Screen Urine Not Detected (Not Detect); Barbiturates, Urine Not Detected (Not Detect); Benzodiazepines Screen Urine Not Detected (Not Detect); Cannabinoid Screen Urine Not Detected (Not Detect); Cocaine Screen Urine POSITIVE (Not Detect); Fentanyl, urine POSITIVE (Not Detect); Opiate Screen Urine Not Detected (Not Detect); Phencyclidine Screen Urine Not Detected (Not Detect)
--- NOTE | 2023-07-06 07:40 | PC.NURSE ---
this RN assumed care, pt sleeping at this time
[2023-07-06 07:45] VITALS: BP 124/68; PULSE 50; RESP 16; TEMP 36.5; O2SAT 97
[2023-07-06] MEDS: methADONE HCl 20 MG/2 ML ORAL.CONC 120 MG PO (07:53)
[2023-07-06] MEDS: FLUoxetine HCl 20 MG CAPSULE PO (07:53)
[2023-07-06] MEDS: 0.9 % Sodium Chloride Flush 3 ML SYRINGE IVFLUSH ×3 (07:53→21:28)
--- NOTE | 2023-07-06 08:02 | PC.NURSE ---
pt alert and oriented, breathing even and unlabored. Pt reports pain 6/10 in left hand and left foot, requesting PRN Tylenol & gabapentin, medicated per AUG.
[2023-07-06] MEDS: Gabapentin 300 MG CAPSULE PO ×2 (08:08→16:16)
[2023-07-06] MEDS: Acetaminophen 325 MG TABLET 650 MG PO ×2 (08:08→16:16)
--- NOTE | 2023-07-06 08:24 | PC.NURSE ---
pt refused lab drawn and Enoxaparin this morning.
--- NOTE | 2023-07-06 08:54 | MHC.EDTECH ---
Patient refused lab test.
[2023-07-06 10:47] VITALS: BP 140/85; PULSE 68; RESP 16; TEMP 36.4; O2SAT 100
--- NOTE | 2023-07-06 11:02 | P.PNIM_ITS ---
Subjective Subjective Date of Service: 07/06/23 Interval History: painful lesions on L hand no fever Review of Systems Review of Systems: Yes all other systems are reviewed and are negative Physical Exam 2 Vital Signs: Vital Signs: Last Vital Signs Temp 97.5 F 07/06/23 10:47 Pulse 68 07/06/23 10:47 Resp 16 07/06/23 10:47 BP 140/85 H 07/06/23 10:47 Pulse Ox 100 07/06/23 10:47 O2 Del Method Room Air 07/06/23 10:47 BMI result Body Mass Index 20.6 Gen: in no acute distress HEENT: sclera anicteric, moist mucus membranes Neck: supple Lungs: clear to auscultation bilaterally Heart: regular rate and rhythm, systolic murmur Abd: soft, non-tender, non-distended Ext: no edema Skin: warm/well-perfused, Osler nodes on L hand Neuro: alert and oriented x3, no focal findings Psych: appropriate affect Objective Data Active Medications Acetaminophen (Acetaminophen 325 Mg Tablet) 650 mg PO Q6H PRN PRN Reason: Pain, Mild (Pain Scale 1-3) Last Admin: 07/06/23 08:08 Dose: 650 mg Documented By: DANE Enoxaparin Sodium (Enoxaparin Sodium 40 Mg/0.4 Ml Syringe) 40 mg SUBCUT Q24H [facility] Last Admin: 07/06/23 08:02 Dose: Not Given Documented By: DANE Non-Admin Reason: Patient Refused Fluoxetine HCl (Fluoxetine Hcl 20 Mg Capsule) 20 mg PO DAILY [facility] Last Admin: 07/06/23 07:53 Dose: 20 mg Documented By: DANE Gabapentin (Gabapentin 300 Mg Capsule) 300 mg PO TID PRN PRN Reason: Pain (Scale Score 1-3) Last Admin: 07/06/23 08:08 Dose: 300 mg Documented By: DANE Vancomycin HCl 1,000 mg/ (Sodium Chloride) 270 mls @ 270 mls/hr IV Q12H [facility] Last Infusion: 07/06/23 03:15 Dose: Infused Documented By: KARON Melatonin (Melatonin 3 Mg Tablet) 6 mg PO BEDTIME PRN PRN Reason: Insomnia Last Admin: 07/05/23 22:07 Dose: 6 mg Documented By: TABITHA Methadone HCl (Methadone Hcl 20 Mg/2 Ml Oral.Conc) 120 mg PO DAILY [facility] Last Admin: 07/06/23 07:53 Dose: 120 mg Documented By: DANE Ondansetron HCl (Ondansetron Hcl 4 Mg/2 Ml Vial) 4 mg IVPUSH Q8H PRN PRN Reason: Nausea and Vomiting Pharmacy Consult (Consult Rx Vancomycin Dosing) 1 each MISCELLANE DAILY PRN PRN Reason: Consult order Sodium Chloride (0.9 % Sodium Chloride Flush 3 Ml Syringe) 3 ml IVFLUSH QSHIFT [facility] Last Admin: 07/06/23 07:53 Dose: 3 ml Documented By: DANE Labs 07/05/23 06:21 07/05/23 05:50 Labs: Laboratory Results - last 24 hr 07/06/23 05:06 Urine Opiates Screen Not Detected Urine Fentanyl Screen POSITIVE H Ur Barbiturates Screen Not Detected Ur Phencyclidine Scrn Not Detected Ur Amphetamines Screen Not Detected U Benzodiazepines Scrn Not Detected Urine Cocaine Screen POSITIVE H U Marijuana (THC) Screen Not Detected Microbiology Microbiology Results: Microbiology 07/05/23 00:15 Blood Culture - Preliminary Blood - Venous No growth after 24 hours. 07/05/23 00:19 Blood Culture - Preliminary Blood - Venous No growth after 24 hours. Assessment and Plan (1) Septic embolism: Status: Acute Plan d2 32yo F with injection drug abuse presenting with L hand/foot swelling with septic emboli + Osler's nodes suspected IE - on ceftriaxone and vancomycin, both 07/05-, follow BCx, TTE pending, ID consult pending OUD - screen HBV/HCV/HIV, consult Addiction Medicine, methadone resumed mood disorder - fluoxetine VTE ppx - LMWH dispo - TBD In my clinical judgment, the patient requires continued inpatient hospitalization for the following reasons: IV ABX Total time managing care of this patient today: 35 minutes. Quality Stroke Does the patient have a stroke diagnosis?: No VTE Prior VTE?: No VTE Risk Level:: Medical - moderate - high VTE Device Contraindication: Treatment Not Indicated VTE Drug Contraindication: N/A - Med Ordered
[2023-07-06] MEDS: cefTRIAXone sodium 2 GM in 0.9 % Sodium Chloride 50 ML IV (11:32)
[2023-07-06 11:55] LABS: Vancomycin Random 10.9 mcg/mL (15-20)
[2023-07-06 12:04] LABS: Creatinine Clr Calc Pharmacy 101.7; Estimated Glomerular Filt Rate > 60
--- NOTE | 2023-07-06 12:15 | HE.PHANOTE ---
RE SKY Patients level came back this morning 10.9. Will increase the patients dose to 1250 mg Q12H. Predicted AUC 531. Next level 07/08 @1100
[2023-07-06] MEDS: vancomycin HCL 1,250 MG in 0.9 % Sodium Chloride 250 ML 166.67 MG IV (12:24)
[2023-07-06 12:45] VITALS: BMI 21.2
--- NOTE | 2023-07-06 14:59 | MHC.RECOVRN ---
Met with pt in 356 after consult placed to Addiction Medicine for substance use disorder. Pt had presented to the ED with left hand and foot swelling, warmth and pain. Upon evaluation, pt admitted for septic embolism and cellulitis. Pt laying in bed, awake, alert, easily engages in conversation, does not appear in any distress. Pt reports one other admission for cellulitis, denies hx hospitalization due to abscesses, endocarditis, etc. Pt reports she has been on methadone x 1.5 years, currently at 120 mg, through [facility]. Pt reports she has significantly decreased her use since initiating methadone. Currently reports using heroin/fentanyl, 4-5 bags daily, IV x 1 month. Pt reports she had been in recovery for a couple months with a recurrence around [place]. Pt reports she currently sees a counselor at the [facility] as well as a psychiatrist. Pt reports she is in the process of obtaining a therapist. Pt feels as though she is on a good path with her recovery and does not need additional support at this time. Pt provided with t/w information if needed. Pt denies questions or concerns at this time. Discussed with Jovita Howard APRN.
[2023-07-06 16:00] VITALS: BP 124/88; PULSE 78; RESP 18; TEMP 36.2; O2SAT 98
--- NOTE | 2023-07-06 16:24 | P.CNID_ITS ---
History of Present Illness Data of Consult Service Date: 07/05/23 Requesting physician: Jill Gordon Primary Care Provider: MD RIVKA Flores Reason for consult: swollen hands She presents swelling predominantly left hand. She has CT scan done evaluate pneumonia and shows areas possible septic emboli. She has no back pain or bacteremia. Review of Systems 2 Review of Systems: Yes all other systems are reviewed and are negative PMFSH Past Medical History Medical History Opiate dependence MRSA (methicillin resistant staph aureus) culture positive Social History Social History Household Members: None Housing: House Alcohol intake: never Patient Tobacco Use Status: Current everyday Tobacco user Tobacco use type: Cigarette Cigarettes Per Day: 2 Substance Use Type: Heroin and IV Drugs service: No Meds Allergies Allergy/AdvReac Type Severity Reaction Status Date / Time No Known Allergies Allergy Verified 07/04/23 22:04 [No Known Allergies*] Active Medications: Current Medications Acetaminophen (Acetaminophen 325 Mg Tablet) 650 mg PO Q6H PRN PRN Reason: Pain, Mild (Pain Scale 1-3) Last Admin: 07/06/23 16:16 Dose: 650 mg Enoxaparin Sodium (Enoxaparin Sodium 40 Mg/0.4 Ml Syringe) 40 mg SUBCUT Q24H [facility] Last Admin: 07/06/23 08:02 Dose: Not Given Fluoxetine HCl (Fluoxetine Hcl 20 Mg Capsule) 20 mg PO DAILY [facility] Last Admin: 07/06/23 07:53 Dose: 20 mg Gabapentin (Gabapentin 300 Mg Capsule) 300 mg PO TID PRN PRN Reason: Pain (Scale Score 1-3) Last Admin: 07/06/23 16:16 Dose: 300 mg Ceftriaxone Sodium 2 gm/ (Sodium Chloride) 50 mls @ 100 mls/hr IV Q24H [facility] Last Infusion: 07/06/23 12:13 Dose: Infused Vancomycin HCl 1,250 mg/ (Sodium Chloride) 250 mls @ 166.667 mls/hr IV Q12H [facility] Last Infusion: 07/06/23 14:04 Dose: Infused Melatonin (Melatonin 3 Mg Tablet) 6 mg PO BEDTIME PRN PRN Reason: Insomnia Last Admin: 07/05/23 22:07 Dose: 6 mg Methadone HCl (Methadone Hcl 20 Mg/2 Ml Oral.Conc) 120 mg PO DAILY [facility] Last Admin: 07/06/23 07:53 Dose: 120 mg Ondansetron HCl (Ondansetron Hcl 4 Mg/2 Ml Vial) 4 mg IVPUSH Q8H PRN PRN Reason: Nausea and Vomiting Pharmacy Consult (Consult Rx Vancomycin Dosing) 1 each MISCELLANE DAILY PRN PRN Reason: Consult order Sodium Chloride (0.9 % Sodium Chloride Flush 3 Ml Syringe) 3 ml IVFLUSH QSHIFT [facility] Last Admin: 07/06/23 16:17 Dose: 3 ml Home Medications Medication Instructions Recorded Confirmed Last Taken Type fluoxetine 20 mg capsule 20 mg PO DAILY 07/05/23 07/05/23 Unknown History gabapentin 300 mg capsule 300 mg PO TID PRN Pain (Scale 07/05/23 07/05/23 Unknown History Score 1-3) methadone 10 mg/mL oral concentrate 120 mg PO DAILY 07/05/23 07/05/23 Unknown History Physical Exam 2 Vital Signs: Vital Signs: Last Vital Signs Temp 97.5 F 07/06/23 10:47 Pulse 68 07/06/23 10:47 Resp 16 07/06/23 10:47 BP 140/85 H 07/06/23 10:47 Pulse Ox 100 07/06/23 10:47 O2 Del Method Room Air 07/06/23 10:47 BMI result Body Mass Index 21.2 Const: General: cooperative HEENT: Head: Yes normal to inspection Face and sinus: Yes normal facial exam Mouth: Normal oral and palatal mucosa present Teeth and gingiva: d entition normal Eyes: General: appearance normal, both eyes and all related structures P upils: Equal, round and reactive pupils present Resp: Effort & Inspection: normal respiratory effort Cardio: Rate: regular rate Rhythm: regular rhythm GI: Palpation (GI): Soft to palpation and nontender : General: Yes no CVA tenderness Back/Spine/Pelvis: Back: no CVA tenderness Skin: General skin exam: no rashes or lesions noted Neuro: General: moves all extremities Cranial nerves: Yes Equal, round and reactive pupils present Extrem: Other: some swelling hand left Psych: Appearance: grossly normal Results Labs 07/05/23 06:21 07/06/23 11:32 Labs: BMP 07/06/23 11:32 Creatinine 0.67 Microbiology Microbiology Results: Microbiology 07/05/23 00:15 Blood - Venous Blood Culture - Preliminary No growth after 24 hours. 07/05/23 00:19 Blood - Venous Blood Culture - Preliminary No growth after 24 hours. Assessment and Plan (1) Cellulitis of hand: Status: Acute There is no evidence of bacteremia or septic emboli clinically now. Echo is pending. She has nodules through lung ,possible also cotton lung from talc and other preparation substances for drugs Plan Stop IV antibiotics as long as final read echo TTE unremarkable. Po Doxycycline for two weeks treat hand. Check HIV and Hepatitis C.
[2023-07-06 19:54] VITALS: BP 128/88; PULSE 60; RESP 18; TEMP 36; O2SAT 100
[2023-07-07] VITALS: BP 111/65; PULSE 88; RESP 18; TEMP 36.9; O2SAT 96
[2023-07-07] MEDS: vancomycin HCL 1,250 MG in 0.9 % Sodium Chloride 250 ML 166.67 MG IV (00:13)
[2023-07-07 03:12] VITALS: BP 95/54; PULSE 64; RESP 18; TEMP 36.2; O2SAT 96
[2023-07-07 07:14] VITALS: BP 117/61; PULSE 55; RESP 16; TEMP 36.7; O2SAT 98
[2023-07-07] MEDS: FLUoxetine HCl 20 MG CAPSULE PO (08:28)
[2023-07-07] MEDS: Doxycycline Monohydrate 100 MG CAPSULE PO (08:28)
[2023-07-07] MEDS: 0.9 % Sodium Chloride Flush 3 ML SYRINGE IVFLUSH (08:28)
[2023-07-07] MEDS: methADONE HCl 20 MG/2 ML ORAL.CONC 120 MG PO (08:28)
[2023-07-07] MEDS: Gabapentin 300 MG CAPSULE PO (08:33)
--- NOTE | 2023-07-07 10:11 | MHC.CM.PN ---
EMR reviewed. Per MD rounds patient is medically cleared for dc home self care. Patient's mother will transport home. RN aware.
--- NOTE | 2023-07-07 10:39 | PM.DS ---
DS: Providers Provider Date of Service: 07/07/23 Date of admission: 07/05/23 04:24 Date of discharge: 07/07/23 Primary care physician: Rosa Elena Morel MD Consults: 07/05/23 04:32 Addiction Medicine Routine Consulting Provider: Addiction Covering Reason for consultation: IV drug use disorder 07/05/23 04:57 Consult to Infectious Diseases Routine Consulting Provider: [facility] Infectious Disease Reason for consultation: septic emboli DS: Diagnosis Discharge Diagnosis (1) Cellulitis of hand: Status: Acute (2) Cellulitis of foot: Status: Acute (3) Lung nodules: Status: Acute (4) Injection of illicit drug within last 12 months: Status: Acute (5) Opioid use disorder: Status: Acute DS: Summary Hospital Course Hospital Course: From the history and physical by the admitting hospitalist, Debbie Cox, 07/05/23: This is a 32-year-old female with pertinent history of IV drug use disorder who presents to the emergency department for evaluation of left hand and foot swelling. Patient states that the swelling and redness worsened over the last 48 hours. No drainage from left hand or foot. Patient also has painful nodules on the tip of fingers of her left hand. Is able to make wrist. States she uses IV drugs only in her lower extremities. To dorsal aspect of her left foot is with pain, swelling and redness. She last used IV drugs 3 days prior to presentation. States she does have a history of skin infections in the past. Admits intermittent cough. Denies fever, chills, chest discomfort, palpitations, shortness of breath, abdominal pain, changes in urinary or bowel habits. In the emergency department, imaging with soft tissue swelling of the left hand and foot. Also CT chest concerning for septic embolus. 32yo F with injection drug abuse presenting with L hand/foot swelling with concern for septic emboli and possible Osler's nodes on L hand. She was admitted to the medical-surgical floor on vancomycin and ceftriaxone for suspected endocarditis. Fortunately, blood cultures were negative at 48 hours and echocardiography was negative for vegetations. 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 Repeat CT of the chest without contrast in 3 months is advised. She was discharged on 14 days of doxycycline for treatment of cellulitis. She met with the Recovery Team to reinforce abstinence from substance abuse. Time Attestation Discharge coordination time: Greater than 30 minutes Quality: Safe Use of Opioids Does Pt have an Active Cancer Diagnosis on the Problem List?: No Quality: Stroke Does the patient have a stroke diagnosis?: No Physical Exam Vital Signs: Vital Signs: Last Vital Signs Temp 98.1 F 07/07/23 07:14 Pulse 55 07/07/23 07:14 Resp 16 07/07/23 07:14 BP 117/61 07/07/23 07:14 Pulse Ox 98 07/07/23 07:14 O2 Del Method Room Air 07/07/23 07:14 BMI result Body Mass Index 21.2 Gen: in no acute distress HEENT: sclera anicteric, moist mucus membranes Neck: supple Lungs: clear to auscultation bilaterally Heart: regular rate and rhythm, systolic murmur Abd: soft, non-tender, non-distended Ext: no edema Skin: warm/well-perfused, swelling and redness of L hand and L foot without fluctuance, multiple painful nodules on L hand Neuro: alert and oriented x3, no focal findings Psych: appropriate affect DS: Data Data Completed and Pending Completed studies during hospitalization [Text1]: Laboratory Results WBC 5.2 X10*3/uL (4.8-10.8) 07/05/23 06:21 RBC 3.61 X10*6/uL (4.20-5.50) L 07/05/23 06:21 Hgb 9.6 g/dl (12.0-16.0) L 07/05/23 06:21 Hct 30.0 % (37.0-47.0) L 07/05/23 06:21 MCV 83.1 fL (80.0-98.0) 07/05/23 06:21 MCH 26.6 pg (27.0-33.0) L 07/05/23 06:21 MCHC 32.0 g/dl (31.0-35.0) 07/05/23 06:21 RDW 13.4 % (11.0-16.0) 07/05/23 06:21 Plt Count 111 X10*3/uL (160-400) L D 07/05/23 06:21 MPV 10.6 fL (9.4-12.3) 07/05/23 06:21 Immature Gran % (Auto) 0.2 % (0.0-0.4) 07/05/23 06:21 Neut % (Auto) 61.4 % (45-73) 07/05/23 06:21 Lymph % (Auto) 29.4 % (20-40) 07/05/23 06:21 [place] % (Auto) 8.4 % (2-11) 07/05/23 06:21 Eos % (Auto) 0.4 % (0-4) 07/05/23 06:21 Baso % (Auto) 0.2 % (0-2) 07/05/23 06:21 Lymph # (Auto) 1.5 X10*3/uL (1.2-4.9) 07/05/23 06:21 [place] # (Auto) 0.4 X10*3/uL (0.1-1.2) 07/05/23 06:21 Eos # (Auto) 0.0 X10*3/uL (0.0-0.4) 07/05/23 06:21 Baso # (Auto) 0.0 X10*3/uL (0.0-0.2) 07/05/23 06:21 Abs Immat Gran (auto) 0.01 X10*3/uL (0.00-0.03) 07/05/23 06:21 Absolute Neuts (auto) 3.2 x10*3/uL (2.0-8.3) 07/05/23 06:21 Absolute Nucleated RBC 0.000 X10*3/uL (0.0-0.012) 07/05/23 06:21 Nucleated RBC % (auto) 0.0 /100WBC (0.0-0.2) 07/05/23 06:21 Smear Tech's Comments VERIFIED 07/05/23 06:21 ESR 46 MM/HR (0-20) H 07/05/23 00:16 Sodium 140 mmol/L (135-145) 07/05/23 05:50 Potassium 3.6 mmol/L (3.3-5.1) 07/05/23 05:50 Chloride 110 mmol/L (96-108) H 07/05/23 05:50 Carbon Dioxide 25 mmol/L (22-29) 07/05/23 05:50 Anion Gap 9 (12-20) L 07/05/23 05:50 BUN 8 mg/dL (9-16) L 07/05/23 05:50 Creatinine 0.67 mg/dL (0.5-1.4) 07/06/23 11:32 Estim Creat Clear Calc 101.7 07/06/23 11:32 Estimated GFR > 60 07/06/23 11:32 Random Glucose 94 mg/dL (60-115) 07/05/23 05:50 Lactic Acid 1.3 mmol/L (0.5-2.0) 07/05/23 00:16 Calcium 7.7 mg/dL (8.4-10.2) L D 07/05/23 05:50 Total Bilirubin 0.3 mg/dL (0.0-1.0) 07/05/23 00:54 AST 61 U/L (5-31) H 07/05/23 00:54 ALT 28 U/L (0-31) 07/05/23 00:54 Alkaline Phosphatase 64 U/L (39-117) 07/05/23 00:54 C-Reactive Protein 14.95 mg/dL (< or = 0.50) H 07/05/23 00:54 Total Protein 6.9 g/dL (6.5-8.0) 07/05/23 00:54 Albumin 3.4 g/dL (3.5-5.0) L 07/05/23 00:54 Beta HCG, Quant < 2 mIU/mL 07/05/23 00:54 Random Vancomycin 10.9 mcg/mL (15-20) L 07/06/23 11:32 Urine Opiates Screen Not Detected (Not Detect) 07/06/23 05:06 Urine Fentanyl Screen POSITIVE (Not Detect) H 07/06/23 05:06 Ur Barbiturates Screen Not Detected (Not Detect) 07/06/23 05:06 Ur Phencyclidine Scrn Not Detected (Not Detect) 07/06/23 05:06 Ur Amphetamines Screen Not Detected (Not Detect) 07/06/23 05:06 U Benzodiazepines Scrn Not Detected (Not Detect) 07/06/23 05:06 Urine Cocaine Screen POSITIVE (Not Detect) H 07/06/23 05:06 U Marijuana (THC) Screen Not Detected (Not Detect) 07/06/23 05:[address] 07/05/23 03:30 IMPRESSION: 1. Peripheral nodular focus in the anterior left lower lobe measuring 9 mm with subtle adjacent groundglass opacity. Given patient history, differential considerations could include a small focus of septic embolus or pulmonary infarct. Malignant etiology is considered overall less likely given patient age. However, in the absence of prior studies for comparison, follow-up chest CT in 3 months is recommended. 2. Few additional nodular foci as described above measuring up to 4 mm, for which attention on follow-up is recommended. 3. Several asymmetrically prominent left axillary lymph nodes measuring up to 1.1 cm in short axis dimension. These may be reactive given the history of IV drug use, though attention on follow-up is also recommended. 4. Visualized spleen appears borderline enlarged. Foot X-Ray 07/05/23 03:32 IMPRESSION: Dorsal soft tissue swelling. No acute osseous findings. Hand X-Ray 07/05/23 03:32 IMPRESSION: Soft tissue swelling without acute osseous findings. TTE 07/05/23 - Normal study with mild tricuspid regurgitation no clear evidence of large vegetatiions Discharge Plan Discharge Anticipated Discharge Date/Time: 07/07/23 10:37 Patient Disposition: Home, Self-Care Discharge Diagnosis: cellulitis cotton lung opioid use disorder Referrals: Rosa Elena Morel MD [Primary Care Provider] - 1 Week Discharge Medications: New doxycycline monohydrate 100 mg Capsule 100 mg PO BID Qty: 28 0RF Continued gabapentin 300 mg capsule 300 mg PO TID PRN (Reason: Pain (Scale Score 1-3)) fluoxetine 20 mg capsule 20 mg PO DAILY methadone 10 mg/mL Concentrate 120 mg PO DAILY Discharge Orders: Discharge Order (Routine); Ordered 07/07/23 Ordered By: Jill Gordon Diet: Advance to usual diet Activity on Discharge: No Contact sports Stand Alone Forms: Patient Portal Discharge page Care Plan Goals: abstinence from substance abuse cure of cellulitis Health Concerns: cellulitis cotton lung opioid use disorder Plan of Treatment: continue methadone take doxycycline 100 mg twice daily for 14 days avoid substance abuse Please follow up with your primary care doctor within 1 week. Return to the hospital if you experience recurrent or worsening symptoms. ask your primary care doctor for repeat CT of the chest in 3 months Assessment: See Discharge Summary.
== END 2023-07-07 12:10 | disposition home or self-care (01) | DRG 383 ==
LOC: HO.ED 07-05 02:21 → HO.EDOVER 07-05 04:30 → HO.S3 07-06 08:41
PROVIDERS: Internal Medicine; Admitting Provider Student in an Organized Health Care Education/Training Program; Emergency Provider Student in an Organized Health Care Education/Training Program; PCP Internal Medicine; Visit Provider Family Medicine
DX: L03.114 Cellulitis of left upper limb (principal); L03.116 Cellulitis of left lower limb; J62.0 Pneumoconiosis due to talc dust; D64.9 Anemia, unspecified; F11.20 Opioid dependence, uncomplicated; F17.210 Nicotine dependence, cigarettes, uncomplicated; Z71.6 Tobacco abuse counseling; Z79.899 Other long term (current) drug therapy
CPT/HCPCS: 36415; 71260; 73120; 73620; 80048; 80053; 80202; 80307; 82565; 83605; 84702; 85025; 85652; 86140; 87040; 93005; 93306; 99221; 99285; J0696; J3370; J3371; J7120; Q9967

== ENCOUNTER → 2023-07-05 02:19 | Outpatient (BNV) | payer OTHER, SELFPAY | PROVIDERS: Admitting Provider Student in an Organized Health Care Education/Training Program; Emergency Provider Student in an Organized Health Care Education/Training Program; PCP Internal Medicine; Visit Provider Internal Medicine Cardiovascular Disease | DX: R00.1 Bradycardia, unspecified (principal) | CPT/HCPCS: 93010; 93306 ==

== ENCOUNTER → 2023-07-05 04:24 | Outpatient (BNV) | payer OTHER, SELFPAY | PROVIDERS: Admitting Provider Student in an Organized Health Care Education/Training Program; Emergency Provider Student in an Organized Health Care Education/Training Program; PCP Internal Medicine; Visit Provider Internal Medicine | DX: L03.119 Cellulitis of unspecified part of limb (principal) | CPT/HCPCS: 99222 ==

== ENCOUNTER → 2023-07-05 04:24 | Outpatient (BNV) | payer OTHER, SELFPAY | PROVIDERS: Admitting Provider Student in an Organized Health Care Education/Training Program; Emergency Provider Student in an Organized Health Care Education/Training Program; PCP Internal Medicine; Visit Provider Student in an Organized Health Care Education/Training Program | DX: L03.114 Cellulitis of left upper limb (principal); L03.116 Cellulitis of left lower limb; R91.8 Other nonspecific abnormal finding of lung field; F19.90 Other psychoactive substance use, unspecified, uncomplicated; F11.90 Opioid use, unspecified, uncomplicated | CPT/HCPCS: 99222; 99232; 99239; 99499 ==

== ENCOUNTER 2024-05-01 03:19 | Inpatient (IN) | payer OTHER, SELFPAY ==
[2024-05-01] VITALS (7 sets, daily range): BP systolic 110–133; BP diastolic 61–74; PULSE 57–91; RESP 16–20; TEMP 36.5–37.5; O2SAT 94–100; BMI 21.6
--- NOTE | ~2024-05-01 | CT_ITS ---
EXAMINATION: CT ABDOMEN AND PELVIS WITH CONTRAST CLINICAL INFORMATION: L flank pain, constipation COMPARISON: None available. TECHNIQUE: Multidetector volumetric images were obtained from the superior aspect of the liver through the pubic symphysis following administration 85 mL of Omnipaque 350 intravenous contrast. Sagittal and coronal reformatted images were obtained on the technologist's workstation. Oral contrast: No This CT examination was performed using dose optimization techniques as appropriate, variously including the following: *Automated exposure control *Adjustment of mA and/or kV according to patient size (this includes techniques or standardized protocols for targeted exams where dose is matched to indication/reason for exam; i.e. extremities or head) *Use of iterative reconstruction technique DLP: 361 mGy-cm FINDINGS: LUNG BASES: The visualized lung bases are unremarkable. LIVER, GALLBLADDER, AND BILIARY TREE: The liver is normal in size, shape, and attenuation. Ill-defined hypodensity the inferior right liver is nonspecific and could represent transient hepatic attenuation differences. No biliary ductal dilatation is present. The gallbladder is unremarkable with no evidence of radiopaque gallstones, gallbladder wall thickening, or obvious pericholecystic inflammatory changes. PANCREAS: Unremarkable. SPLEEN: Unremarkable. ADRENAL GLANDS: Unremarkable. KIDNEYS AND URETERS: The kidneys are normal in size, shape, and attenuation. No hydronephrosis, hydroureter, or calculi seen. No perinephric stranding. BLADDER: Unremarkable. GASTROINTESTINAL TRACT: The small and large bowel are nondilated. Moderate to large stool burden overall. Normal appendix, coronal images 33-34. ABDOMINAL WALL: No significant hernia is appreciated. LYMPH NODES: There is a prominent right external iliac node measuring up to 1.1 cm in short axis (series #3 axial image 73). There are additional bilateral pelvic wall lymph nodes that are prominent though not pathologically enlarged. VASCULAR: Unremarkable. PELVIC VISCERA: Normal CT appearance the uterus. No adnexal masses. OSSEOUS STRUCTURES: Unremarkable. CT/CT abdomen pelvis w IV con IMPRESSION: 1. No acute abnormality within the abdomen or pelvis. 2. Moderate to large stool burden overall. 3. Prominent right external iliac node measuring up to 1.1 cm in short axis, nonspecific. There are additional bilateral pelvic wall lymph nodes that are prominent though not pathologically enlarged. Fleischner guidelines were followed. Electronically signed by: Ladi Donnelly DO 05/01/2024 09:14 AM [facility]
--- NOTE | ~2024-05-01 | MR_ITS ---
EXAMINATION: MR LUMBAR SPINE WITHOUT AND WITH CONTRAST CLINICAL INFORMATION: Lumbar back pain COMPARISON: None available. TECHNIQUE: MRI of the lumbar spine was obtained using routine sequences with and without contrast. Intravenous contrast: Gadavist 5.5 mL FINDINGS: Motion artifact is present. There are 5 nonrib-bearing lumbar-type vertebrae. Preservation of the normal lumbar lordosis. Normal alignment. No acute bone marrow abnormality or suspicious enhancement. The vertebral body heights are preserved. Disc desiccation at L5-S1 with mild height loss. The visualized spinal cord is normal in caliber. No abnormal cord signal or enhancement. There is a partially imaged T1 hypointense, T2/STIR hyperintense lesion involving the dorsal epidural space at the level of T10-11. T12-L1: No significant spinal canal or neural foraminal narrowing. L1-2: No significant spinal canal or neural foraminal narrowing. L2-3: No significant spinal canal or neural foraminal narrowing. L3-4: No significant spinal canal or neural foraminal narrowing. L4-5: Bilateral facet arthrosis. No significant spinal canal or neural foraminal narrowing. L5-S1: Shallow disc bulge and bilateral facet arthrosis. No significant spinal canal or neural foraminal narrowing. The paravertebral soft tissues are unremarkable. MR/MR lumbar spine wo/w con IMPRESSION: Within the limitations of the study, -Partially imaged T1 hypointense, T2/STIR hyperintense lesion involving the dorsal epidural space at the level of T10-11. Recommend further evaluation with MRI of the thoracic spine with and without contrast. -Mild degenerative changes at L4-L5 and L5-S1 without significant spinal canal or neural foraminal narrowing. Electronically signed by: Prosper Otero MD 05/01/2024 01:32 PM [facility]
--- NOTE | ~2024-05-01 | MR_ITS ---
EXAMINATION: MR THORACIC SPINE WITHOUT AND WITH CONTRAST CLINICAL INFORMATION: Abnormal finding COMPARISON: Same day MRI lumbar spine TECHNIQUE: MRI of the thoracic spine was obtained using routine sequences with and without contrast. Intravenous contrast: Gadavist 5.5 mL. FINDINGS: Preservation of the normal thoracic kyphosis. Normal alignment. No acute bone marrow abnormality or suspicious enhancement. The vertebral body heights are preserved. The disc spaces are also preserved. The visualized spinal cord is normal in caliber. No abnormal cord signal or enhancement. There is a heterogeneously enhancing intradural extramedullary mass along the posterior and lateral aspect of the canal at the level of T10-11, extending toward the left neural foramen. There is resultant mass effect on the cord with anterior and rightward displacement of the thecal sac. There is no significant disc herniation, spinal canal stenosis, or neural foraminal narrowing throughout the thoracic spine. The paravertebral soft tissues are unremarkable. Small bilateral pleural effusions. 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 There is resultant mass effect on the cord with anterior and rightward displacement of the thecal sac. Differential considerations include meningioma versus nerve sheath tumor versus focal granulomatous disease versus metastatic disease. Electronically signed by: Prosper Otero MD 05/01/2024 08:25 PM [facility]
--- NOTE | 2024-05-01 03:39 | ECG_ITS ---
Test Reason : QTC Blood Pressure : / mmHG Vent. Rate : 093 BPM Atrial Rate : 093 BPM P-R Int : 138 ms QRS Dur : 078 ms QT Int : 342 ms P-R-T Axes : 070 046 050 degrees QTc Int : 425 ms Normal sinus rhythm Nonspecific T wave abnormality Abnormal ECG When compared with ECG of 05-JUL-2023 02:30, Vent. rate has increased BY 37 BPM Referred By: Rachel Mcfarlane Electronically Signed By:REED GARCIA
--- NOTE | 2024-05-01 03:43 | ED_ITS ---
HPI - Back Pain/Injury General Chief Complaint: Urogenital-Female Stated Complaint: lower back pain Time Seen by Provider: 05/01/24 03:28 Source: patient, family and old records reviewed Mode of arrival: ambulatory Limitations: no limitations History of Present Illness ED Provider: HARSHAL TINEO Narrative: 33 yo female with active IVDA and methadone use, prior cellulitis, MRSA who presents with c/o 2 weeks atraumatic low back pain. She notes it has been getting worse and she has nausea and subjective fever today. She notes no b/b incontinence, no saddle anesthesia. Also worried about cellulitis of L thigh thought she had a rash. MD elicited complaint: back pain Pertinent past history: IV drug use Onset (ago): week(s) (2) Timing: progressively worsening Severity: severe Similar Symptoms Previously: Yes Quality: sharp Location: lumbar spine Radiation: none Exacerbating factors: movement, walking, coughing/sneezing and lifting Relieving factors: none Context: IV drug use Associated symptoms: other (rash) Work related injury: No Related Data Home Medications ?Medication ?Instructions ?Recorded ?Confirmed fluoxetine 20 mg capsule 20 mg PO DAILY 07/05/23 07/05/23 gabapentin 300 mg capsule 300 mg PO TID PRN Pain (Scale 07/05/23 07/05/23 Score 1-3) methadone 10 mg/mL oral concentrate 120 mg PO DAILY 07/05/23 07/05/23 Previous Rx's ?Medication ?Instructions ?Recorded doxycycline monohydrate 100 mg 100 mg PO BID #28 caps 07/07/23 capsule Allergies Allergy/AdvReac Type Severity Reaction Status Date / Time No Known Allergies Allergy Verified 05/01/24 03:43 [No Known Allergies*] Review of Systems 2 Review of Systems: Constitutional : No Weight loss, No Fever, No Chills, ENT/Mouth : No Hearing loss, No Ear Pain, No Nasal Congestion, No Sinus Pain, No Hoarseness, No sore throat, No Rhinorrhea, No Swallowing Difficulty Cardiovascular : No Chest Pain, No SOB Respiratory : No Cough, No Dyspnea Gastrointestinal : No Nausea, No Vomiting, No Diarrhea, No abdominal Pain, No Hematochezia, No Melena Genitourinary : No Dysuria, No Urinary Frequency, No Hematuria, No Urinary Incontinence, Musculoskeletal : positive back pain Skin : No Skin Lesions, No rash Neuro : No Weakness, No Numbness, No Paresthesias, no loss of bowel or bladder incontinence, no saddle anesthesia all other systems reviewed and are negative PMFSH Past Medical History Attestation statement: The following information was validated with the patient. Source: old records reviewed Medical History Opiate dependence MRSA (methicillin resistant staph aureus) culture positive Social History Social History Household Members: None Housing: House Alcohol intake: never Patient Tobacco Use Status: Current everyday Tobacco user Tobacco use type: Cigarette Cigarettes Per Day: 2 Use of substances other than those prescribed or required for medical reasons: Yes Substance Use Type: Heroin Advance Directives: No Advance Directives Information Provided: Yes service: No Physical Exam 2 Vital Signs: Vital Signs: Last Vital Signs Temp 98.9 F 05/01/24 06:41 Pulse 72 05/01/24 06:41 Resp 18 05/01/24 06:41 BP 117/70 05/01/24 06:41 Pulse Ox 98 05/01/24 06:41 O2 Del Method Room Air 05/01/24 06:41 BMI result Body Mass Index 21.6 Appearance: Alert. Oriented X3. No acute distress. Eyes: Pupils equal, round and reactive to light. ENT: Pharynx normal. Neck: Normal inspection. Neck supple. CVS: Normal heart rate and rhythm. Pulses normal. Respiratory: No respiratory distress. Breath sounds normal. Abdomen: Soft and nontender. Back: ttp along L paraspinals Skin: Skin warm and dry. Normal skin color. Normal skin turgor. Extremities: No lower extremity edema. No calf ttp no cellulitis seen on L lateral thigh Neuro: Oriented X 3. No motor deficit. No sensory deficit. Course Course Course Narrative: took her take home methadone in ED this AM first R IV line - on her way over from [facility] was moving and line now working 2nd IV line - IVF, ceftriaxone, after patient went to the bathroom the line again stopped working Reevaluation(s) Reevaluation #1: signed out to Dr. Tam Medications Administered Discontinued Medications Generic Name Dose Route Start Last Admin Trade Name Freq PRN Reason Stop Dose Admin Ceftriaxone Sodium 2 gm 05/01/24 03:39 05/01/24 04:35 Ceftriaxone Sodium 2 Gm Vial IVPUSH 05/01/24 03:40 2 gm ONCE ONE Administration Hydromorphone HCl 1 mg 05/01/24 03:40 05/01/24 04:30 Hydromorphone Hcl 1 Mg/Ml Syringe IVPUSH 05/01/24 03:41 1 mg ONCE ONE Administration Protocol Hydromorphone HCl 1 mg 05/01/24 05:42 05/01/24 05:52 Hydromorphone Hcl 1 Mg/Ml Syringe IVPUSH 05/01/24 05:43 1 mg ONCE ONE Administration Protocol Vancomycin HCl 1,500 mg/ 500 mls @ 333.333 mls/hr 05/01/24 04:00 05/01/24 06:52 Sodium Chloride IV 05/01/24 05:29 333.33 mls/hr ONCE ONE Infusion Protocol Iohexol 85 ml 05/01/24 06:09 05/01/24 06:09 Iohexol 350 Mg/Ml 100 Ml Infus..Btl IV 05/01/24 06:10 85 ml ONCE ONE Administration Ketorolac Tromethamine 15 mg 05/01/24 06:40 05/01/24 06:50 Ketorolac Tromethamine 15 Mg/Ml Vial IVPUSH 05/01/24 06:41 15 mg ONCE ONE Administration Medical Decision Making Medical Decision Making [facility] Narrative: 33 yo female with active IVDA and methadone use, prior cellulitis, MRSA who presents with c/o low back pain 2 weeks no b/b incontinence no saddle anesthesia at this time basic labs, cultures, empiric abx and ESR/CRP. Suspect given the low back pain reported fevers at home she will need MRI to rule out disciitis, osteo, epidural abscess. Can wait for MRI in AM this has been 2 weeks and she is NV intact. I am ordering CT scan as well for possible psoas infection given her radiation to L side of abdomen and hurts to walk Differential Diagnosis Differential Diagnoses: The differential diagnosis associated with the presentation includes UTI, cellulitis, disciitis, osteo, epidural abscess, MSK back pain Admission/Observation Consideration of admission/observation: Escalation of care including admission/observation considered Lab Data [facility] Lab Attestation statement: I reviewed the patient's lab results. 05/01/24 04:23 05/01/24 04:23 Labs: Lab Results 11/26/24 Range/Units 04:23 WBC 8.3 (4.8-10.8) X10*3/uL RBC 3.81 L (4.20-5.50) X10*6/uL Hgb 10.2 L (12.0-16.0) g/dl Hct 30.9 L (37.0-47.0) % MCV 81.1 (80.0-98.0) fL MCH 26.8 L (27.0-33.0) pg MCHC 33.0 (31.0-35.0) g/dl RDW 13.8 (11.0-16.0) % Plt Count 214 D (160-400) X10*3/uL MPV 9.3 L (9.4-12.3) fL Immature Gran % (Auto) 0.2 (0.0-0.4) % Neut % (Auto) 80.0 H (45-73) % Lymph % (Auto) 11.0 L (20-40) % Anderson % (Auto) 8.4 (2-11) % Eos % (Auto) 0.0 (0-4) % Baso % (Auto) 0.4 (0-2) % Lymph # (Auto) 0.9 L (1.2-4.9) X10*3/uL Anderson # (Auto) 0.7 (0.1-1.2) X10*3/uL Eos # (Auto) 0.0 (0.0-0.4) X10*3/uL Baso # (Auto) 0.0 (0.0-0.2) X10*3/uL Abs Immat Gran (auto) 0.02 (0.00-0.03) X10*3/uL Absolute Neuts (auto) 6.7 (2.0-8.3) x10*3/uL Absolute Nucleated RBC 0.000 (0.0-0.012) X10*3/uL Nucleated RBC % (auto) 0.0 (0.0-0.2) /100WBC ESR 94 H (0-20) MM/HR Sodium 133 L (135-145) mmol/L Potassium 3.6 (3.3-5.1) mmol/L Chloride 97 (96-108) mmol/L Carbon Dioxide 24 (22-29) mmol/L Anion Gap 16 (12-20) BUN 11 (9-16) mg/dL Creatinine 0.99 (0.5-1.4) mg/dL Estim Creat Clear Calc 68.4 Estimated GFR > 60 Random Glucose 91 (60-115) mg/dL Lactic Acid 0.7 (0.5-2.0) mmol/L Calcium 9.1 D (8.4-10.2) mg/dL Magnesium 1.8 (1.6-2.6) mg/dL Total Bilirubin 0.3 (0.0-1.0) mg/dL Direct Bilirubin 0.2 (0.0-0.5) mg/dL AST 21 (5-31) U/L ALT 14 (0-31) U/L Alkaline Phosphatase 83 (39-117) U/L C-Reactive Protein 23.89 H (< or = 0.50) mg/dL Total Protein 7.9 (6.5-8.0) g/dL Albumin 3.9 (3.5-5.0) g/dL Lipase 8 (8-78) U/L Beta HCG, Quant < 2 mIU/mL Independent Interpretation I performed an independent interpretation of an: EKG and CT Scan Interpretation: Rate: 93 Rhythm: NSR [place]: normal Normal P waves. Normal ROSARIO. Normal QRS complex. ST T wave : inverted t wave V1, no SCOT qTC: 425 prior studies: no acute ischemia The study has been interpreted contemporaneously by me. . Independent Historian Clinical information obtained from an independent historian. History obtained from or confirmed by: Other (sister) External Record Review External record reviewed: Inpatient record Procedures EJ/Peripheral Line Arm R: Time Out Performed: Yes Skin Cleansed in Sterile Fashion: Yes Size (gauge): 20 IV Secured and Dressing Applied: Yes Patient Tolerated Procedure: well and no complications Additional Comments: US guided Critical Care Time Critical Care Time Critical Care Time: Yes Total Critical Care Time: 60 Attestation: repeat IV dilaudid for pain with improvement, repeat assessments, review of records I attest to this time spent taking care of the patient Discharge Plan Discharge Clinical Impression: Back pain Qualifiers: Back pain location: low back pain Chronicity: acute Back pain laterality: left Sciatica presence: without sciatica Qualified Code(s): M54.50 - Low back pain, unspecified Patient Disposition: Still a Patient Prescriptions: No Action gabapentin 300 mg capsule 300 mg PO TID PRN (Reason: Pain (Scale Score 1-3)) fluoxetine 20 mg capsule 20 mg PO DAILY methadone 10 mg/mL Concentrate 120 mg PO DAILY doxycycline monohydrate 100 mg Capsule 100 mg PO BID Qty: 28 0RF Print Language: Syrian
--- NOTE | 2024-05-01 04:11 | PC.NURSE ---
Several attempts to start Iv line unsuccessful and collect labs, Dr. Mcfarlane into to place line. Iv place by ultra sound, labs collected and sent.
[2024-05-01] MEDS: HYDROmorphone HCl 1 MG/ML SYRINGE IVPUSH ×2 (04:30→05:52)
[2024-05-01 04:33] LABS: MANUAL DIFF FLAG NO
[2024-05-01 04:35] LABS: Basophils Percent Auto 0.4 % (0-2); Hematocrit 30.9 % (37.0-47.0); Hemoglobin 10.2 g/dl (12.0-16.0); Imm Gran Abs Auto 0.02 X10*3/uL (0.00-0.03); Imm Gran Pct Auto 0.2 % (0.0-0.4); Lymphocytes Absolute Auto 0.9 X10*3/uL (1.2-4.9); Mean Corpuscular Hemoglobin 26.8 pg (27.0-33.0); Mean Corpuscular Volume 81.1 fL (80.0-98.0); Mean Platelet Volume 9.3 fL (9.4-12.3); Monocytes Absolute Auto 0.7 X10*3/uL (0.1-1.2); Monocytes Percent Auto 8.4 % (2-11); Neutrophils Absolute Auto 6.7 x10*3/uL (2.0-8.3); Platelet Count 214 X10*3/uL (160-400); Red Blood Count 3.81 X10*6/uL (4.20-5.50); Red Cell Distribution Width 13.8 % (11.0-16.0); White Blood Count 8.3 X10*3/uL (4.8-10.8)
[2024-05-01] MEDS: vancomycin HCL 1,500 MG in 0.9 % Sodium Chloride 500 ML 333.33 MG IV (04:35)
[2024-05-01] MEDS: cefTRIAXone sodium 2 GM VIAL IVPUSH (04:35)
[2024-05-01 04:52] LABS: Lactic Acid 0.7 mmol/L (0.5-2.0)
[2024-05-01 04:59] LABS: Alanine Aminotransferase 14 U/L (0-31); Albumin Level 3.9 g/dL (3.5-5.0); Alkaline Phosphatase 83 U/L (39-117); Anion Gap 16 (12-20); Aspartate Amino Transferase 21 U/L (5-31); Bilirubin Direct 0.2 mg/dL (0.0-0.5); Bilirubin Total 0.3 mg/dL (0.0-1.0); Blood Urea Nitrogen 11 mg/dL (9-16); C Reactive Protein 23.89 mg/dL (< or = 0.50); Calcium 9.1 mg/dL (8.4-10.2); Carbon Dioxide 24 mmol/L (22-29); Chloride 97 mmol/L (96-108); Creatinine Clr Calc Pharmacy 68.4; Estimated Glomerular Filt Rate > 60; Glucose Random 91 mg/dL (60-115); Lipase 8 U/L (8-78); Magnesium 1.8 mg/dL (1.6-2.6); Potassium 3.6 mmol/L (3.3-5.1); Sodium 133 mmol/L (135-145); Total Protein 7.9 g/dL (6.5-8.0)
[2024-05-01 05:01] LABS: HCG Quantitative < 2 mIU/mL
[2024-05-01 05:12] LABS: Erythrocyte Sedimentation Rate 94 MM/HR (0-20)
--- NOTE | 2024-05-01 06:06 | PC.NURSE ---
dieter pt to open a pill bottle from her bag and put in her mouth. TW asked pt what she took to which she responded my methadone . Notified provider and educated pt on taking own meds in the ED. provider also discussed with pt. Two ultrasound guided line infiltrated after pt moving. third line placed by herb, [employer]. PT educated on staying still for the third line. pt medicated as per mar and on her way to CT. explained to sister that she is [employer]
[2024-05-01] MEDS: iohexoL 350 MG/ML 100 ML INFUS..BTL 85 ML IV (06:09)
[2024-05-01] MEDS: Ketorolac Tromethamine 15 MG/ML VIAL IVPUSH ×2 (06:50→14:48)
--- NOTE | 2024-05-01 06:53 | PC.NURSE ---
infusion paused and restarted due to infiltrated line x2, new placement and ct scan.
[2024-05-01 07:03] LABS: Influenza A PCR NEGATIVE (Negative); Influenza B PCR NEGATIVE (Negative); Resp Syncy Virus RNA Qual PCR NEGATIVE (Negative); SARS COV2 PCR INHOUSE NEGATIVE (Negative)
--- NOTE | 2024-05-01 11:26 | PC.NURSE ---
Assumed care of this patient at 1100, patient resting quietly on stretcher at this time, MRI screening form completed and sent via [place] text to [facility] staff.
--- NOTE | 2024-05-01 11:46 | PC.NURSE ---
PT to MRI w/ transport
[2024-05-01 11:54] LABS: Appearance Urine Clear; Color Urine Yellow; Glucose Urine UA Negative (Negative); Leukocyte Esterase Urine Negative (Negative); Nitrite Urine Negative (Negative); PH 5.5 (5.0-9.0); Urine Blood Negative (Negative); Urine Ketones Negative (Negative); Urine Protein Negative (Neg-Trace)
[2024-05-01 12:05] LABS: Amphetamine Screen Urine Not Detected (Not Detect); Barbiturates, Urine Not Detected (Not Detect); Benzodiazepines Screen Urine Not Detected (Not Detect); Buprenorphine Scr Not Detected (Not Detect); Cannabinoid Screen Urine Not Detected (Not Detect); Cocaine Screen Urine POSITIVE (Not Detect); Fentanyl, urine POSITIVE (Not Detect); Methadone Screen, Urine Positive (Not Detect); Opiate Screen Urine POSITIVE (Not Detect); Oxycodone Screen Urine Not Detected (Not Detect); Phencyclidine Screen Urine Not Detected (Not Detect)
[2024-05-01] MEDS: gadobutroL 7.5 ML VIAL IVPUSH ×2 (12:22→19:34)
--- NOTE | 2024-05-01 15:06 | PC.NURSE ---
Additional MRI ordered by Dr. Tam, checked w/ [facility] if another scanning form needs to be filled out, MRI okay to use previously filled form.
--- NOTE | 2024-05-01 15:51 | PC.NURSE ---
Spoke to Laura, patient got MRI w/ contrast at noon, so can't get another dose of contrast until at least 6pm, earliest opening at 1930, patient will be done at that time unless more emergent patient arrives.
--- NOTE | 2024-05-01 22:00 | PHA.MEDREC ---
Addendum entered by Daisy Jewell [facility] 05/02/24 08:52: Per Iza in ER, pt states she takes gabapentin scheduled, and miralax prn. Original Note: Pharmacy Consult ? Medication Reconciliation Pharmacy has completed the medication reconciliation.Med rec complete, spoke with patient and compared pharmacy claim history. Patient states her current methadone dose is 150 mg and last dose was last night. This will need to be verified with clinic in am.
[2024-05-02] VITALS (8 sets, daily range): BP systolic 97–141; BP diastolic 51–65; PULSE 50–62; RESP 14–18; TEMP 36.2–37.3; O2SAT 96–100; BMI 21.7
[2024-05-02] MEDS: Ketorolac Tromethamine 30 MG/ML VIAL IVPUSH (00:41)
[2024-05-02] MEDS: methADONE HCl 20 MG/2 ML ORAL.CONC 50 MG PO ×2 (00:41→21:00)
[2024-05-02] MEDS: 0.9 % Sodium Chloride Flush 3 ML SYRINGE IVFLUSH ×3 (00:42→22:45)
[2024-05-02] MEDS: vancomycin HCL 1,000 MG in 0.9 % Sodium Chloride 250 ML 270 MG IV (00:42)
--- NOTE | 2024-05-02 01:55 | PM.IMHP ---
History of Present Illness Date of Service: 05/01/24 Attending physician on admission: Floyd Andrade Chief Complaint: Left mid-back pain Janell Moore is a very pleasant 33 years old woman with past medical history significant for opiate dependence on methadone, MRSA and ongoing IVDU presents to the emergency department complaining of 2 weeks history of intermittent left mid back pain. It has been getting worse over the last 3 days. She has been experiencing nausea, sweating and poor appetite. She denied any event of vomiting, fevers or chills. She also denied any difficulty with urination. Patient has been also experiencing right groin pain associated with pain running in the inner aspect of her right knee which she attributes to phlebitis. Last bowel movement was a week ago. She has history of chronic constipation. She denied numbness or weakness to the lower extremities, back or abdomen. Last use of IV drugs was 2 days ago. Patient denies history of epidural abscesses or endocarditis. In the ED, she was found to have normal vital signs (no tachycardia, hypotension or fever). Blood workup showed no leukocytosis or lactic acidosis. Hemoglobin is 10.2 and platelets are 214. There is minor hyponatremia 133. Renal and liver function are normal. CRP is 23.89. test is negative. Urinalysis is normal. Urine drug screen is positive for opiates, methadone, fentanyl and cocaine. Viral testing is negative for influenza, RSV and COVID-19. ECG showed normal sinus rhythm and no ischemic changes. Blood culture -1 set growing Gram-positive cocci in clusters. 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 ED tx: Ceftriaxone 2 g IV, Dilaudid 2 g IV (total), vancomycin 1.5 g IV. Toradol 30 mg IV (total). Review of Systems Review of Systems: All 12 systems were reviewed and normal except as noted in HPI. [facility] Medical History Opiate dependence MRSA (methicillin resistant staph aureus) culture positive Social History Household Members: None Housing: House Alcohol intake: never Patient Tobacco Use Status: Current everyday Tobacco user Tobacco use type: Cigarette Cigarettes Per Day: 2 Use of substances other than those prescribed or required for medical reasons: Yes Substance Use Type: Heroin Advance Directives: No Advance Directives Information Provided: Yes service: No Meds Allergies Allergy/AdvReac Type Severity Reaction Status Date / Time No Known Allergies Allergy Verified 05/01/24 03:43 [No Known Allergies*] Active Medications: Current Medications Acetaminophen (Acetaminophen 325 Mg Tablet) 975 mg PO Q6H PRN PRN Reason: Pain, Mild (Pain Scale 1-3), fever or headache Ceftriaxone Sodium (Ceftriaxone Sodium 1 Gm Vial) 1 gm IVPUSH DAILY [facility] Fluoxetine HCl (Fluoxetine Hcl 20 Mg Capsule) 40 mg PO DAILY [facility] Gabapentin (Gabapentin 400 Mg Capsule) 400 mg PO TID PRN PRN Reason: NERVE PAIN Ibuprofen (Ibuprofen 600 Mg Tablet) 600 mg PO Q8H PRN PRN Reason: Pain (Scale Score 4-6) Magnesium Hydroxide (Milk Of Magnesia 30 Ml Oral.Susp) 30 ml PO DAILY PRN PRN Reason: Constipation Melatonin (Melatonin 3 Mg Tablet) 6 mg PO BEDTIME PRN PRN Reason: Insomnia Methadone HCl (Methadone Hcl 20 Mg/2 Ml Oral.Conc) 50 mg PO DAILY [facility] Methadone HCl (Methadone Hcl 20 Mg/2 Ml Oral.Conc) 100 mg PO BEDTIME [facility] Pharmacy Consult (Consult Rx Vancomycin Dosing) 1 each MISCELLANE DAILY PRN PRN Reason: Consult order Polyethylene Glycol (Polyethylene Glycol 3350 17 Gm Powd.Pack) 17 gm PO DAILY [facility] Sodium Chloride (0.9 % Sodium Chloride Flush 3 Ml Syringe) 3 ml IVFLUSH QSHIFT [facility] Last Admin: 05/02/24 00:42 Dose: 3 ml Home Medications ?Medication ?Instructions ?Recorded ?Confirmed ?Last Taken ?Type methadone 10 mg/mL oral concentrate 150 mg PO DAILY 07/05/23 07/05/23 Unknown History fluoxetine 40 mg capsule 40 mg PO DAILY 05/01/24 05/01/24 Unknown History gabapentin 400 mg capsule 400 mg PO TID PRN NERVE PAIN 05/01/24 05/01/24 Unknown History ibuprofen 600 mg tablet 600 mg PO Q8H PRN Pain (Scale 05/01/24 05/01/24 Unknown History Score 4-6) polyethylene glycol 3350 17 17 g PO DAILY PRN Constipation 05/01/24 05/01/24 Unknown History gram/dose oral powder (Miralax) Physical Exam Vital Signs and Narrative: Vital Signs: Last Vital Signs Temp 97.8 F 05/02/24 00:33 Pulse 62 05/02/24 00:33 Resp 16 05/02/24 00:33 BP 110/62 05/02/24 00:33 Pulse Ox 97 05/02/24 00:33 O2 Del Method Room Air 05/02/24 00:33 BMI result Body Mass Index 21.6 Constitutional - Awake and Alert, No apparent distress. Pleasant. Cooperative. Afebrile. HEENT - PER, EOMI. Normal sclerae. Heart - S1S2, RRR, No murmurs. Lungs - Normal lung expansion, Normal respiratory effort, No respiratory distress, CTA bilaterally Abdomen - NT / ND; +BS; No rebound or guarding. Left groin tenderness. - No CVA tenderness. Back: No focal tenderness to palpation. No sensory deficit. No lesions. Extremities - Left lower extremity: Slightly prominent veins, non tenderness. Left lower extremity: Normal. Musculoskeletal - Normal inspection, normal ROM Skin - Warm/Dry Neurological - Alert & oriented x3, 5/5 strength BUE and BLE Psychological - Appropriate affect Results Labs 05/01/24 04:23 05/01/24 04:23 Labs: Laboratory Results - last 24 hr 05/01/24 05/01/24 04:23 11:44 MCV 81.1 MCH 26.8 L MCHC 33.0 RDW 13.8 Plt Count 214 D MPV 9.3 L Immature Gran % (Auto) 0.2 Neut % (Auto) 80.0 H Lymph % (Auto) 11.0 L [place] % (Auto) 8.4 Eos % (Auto) 0.0 Baso % (Auto) 0.4 Lymph # (Auto) 0.9 L [place] # (Auto) 0.7 Eos # (Auto) 0.0 Baso # (Auto) 0.0 Abs Immat Gran (auto) 0.02 Absolute Neuts (auto) 6.7 Absolute Nucleated RBC 0.000 Nucleated RBC % (auto) 0.0 ESR 94 H Anion Gap 16 Estim Creat Clear Calc 68.4 Estimated GFR > 60 Random Glucose 91 Lactic Acid 0.7 Calcium 9.1 D Magnesium 1.8 Total Bilirubin 0.3 Direct Bilirubin 0.2 AST 21 ALT 14 Alkaline Phosphatase 83 C-Reactive Protein 23.89 H Total Protein 7.9 Albumin 3.9 Lipase 8 Beta HCG, Quant < 2 Urine Color Yellow Urine Appearance Clear Urine pH 5.5 Ur Specific [place] 1.020 Urine Protein Negative Urine Glucose (UA) Negative Urine Ketones Negative Urine Blood Negative Urine Nitrite Negative Ur Leukocyte Esterase Negative Urine Opiates Screen POSITIVE H Ur Buprenorphine Scrn Not Detected Ur Oxycodone Screen Not Detected Urine Methadone Screen Positive H Urine Fentanyl Screen POSITIVE H Ur Barbiturates Screen Not Detected Ur Phencyclidine Scrn Not Detected Ur Amphetamines Screen Not Detected U Benzodiazepines Scrn Not Detected Urine Cocaine Screen POSITIVE H U Marijuana (THC) Screen Not Detected Influenza Type A (PCR) NEGATIVE Influenza Type B (PCR) NEGATIVE RSV RNA Qual (PCR) NEGATIVE SARS-CoV-2 RNA (RT-PCR) NEGATIVE Imaging Radiologist's Impressions: Impressions Abdomen/Pelvis CT 05/01/24 06:00 IMPRESSION: 1. No acute abnormality within the abdomen or pelvis. 2. Moderate to large stool burden overall. 3. Prominent right external iliac node measuring up to 1.1 cm in short axis, nonspecific. There are additional bilateral pelvic wall lymph nodes that are prominent though not pathologically enlarged. Fleischner guidelines were followed. Electronically signed by: Ladi Donnelly DO 05/01/2024 09:14 AM EST RP Lumbar Spine MRI 05/01/24 11:50 IMPRESSION: Within the limitations of the study, -Partially imaged T1 hypointense, T2/STIR hyperintense lesion involving the dorsal epidural space at the level of T10-11. Recommend further evaluation with MRI of the thoracic spine with and without contrast. -Mild degenerative changes at L4-L5 and L5-S1 without significant spinal canal or neural foraminal narrowing. 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 There is resultant mass effect on the cord with anterior and rightward displacement of the thecal sac. Differential considerations include meningioma versus nerve sheath tumor versus focal granulomatous disease versus metastatic disease. Electronically signed by: Prosper Otero MD 05/01/2024 08:25 PM [facility] Assessment and Plan (1) Epidural abscess: Status: Acute (2) Injection of illicit drug within last 12 months: Status: Acute (3) Gram-positive cocci bacteremia: Status: Acute Plan Janell Moore is a 33 years old woman with PMHx significant for opiate dependence on methadone, MRSA and IVDU admitted with: Epidural abscess, T10-T11, Gram-positive cocci in clusters bacteremia -no concerning signs and symptoms at this moment. According to ED provider, case has been discussed with neurosurgery service (LICHA Finley) at [facility] who has seen the MRI and discuss the case with neurosurgeon and recommended only IV antibiotics as the patient has no neuro deficits. Admit to hospitalist service. Continue empiric IV antibiotic therapy with vancomycin and ceftriaxone. Blood cultures X2 obtained -1 set Gram-positive cocci in clusters. ID consult. Opiates dependence. Continue methadone (she takes 50 mg in am and 100 mg bedtime). IVDU. Last use 2 days ago. Addiction medicine consult. Mood disorder. Continue fluoxetine. Constipation likely secondary to opiates. MiraLax daily. Mom p.r.n. DVT prophylaxis: Early ambulation. Code status: Full Patient will need hospitalization for at least 2 midnights for epidural abscess treatment with IV antibiotics. Quality Stroke Does the patient have a stroke diagnosis?: No VTE Prior VTE?: No VTE Risk Level:: Medical - moderate - high VTE Device Contraindication: N/A - Device Ordered VTE Drug Contraindication: Treatment Not Indicated
--- NOTE | 2024-05-02 06:45 | PHA.PROG ---
Admission Date/Time: May 01, 2024 23:37 Indication: bone + joint Weight in k kg Adjusted body weight in Kg: Lovely body weight in Kg: Obesity Dosing Indication % IBW: BMI 21.6 Serum Creatinine - Last 168 Hours 05/01/24 04:23 Creatinine 0.99 Estimated CrCl and GFR - Last 168 Hours 05/01/24 04:23 Estim Creat Clear Calc 68.4 Estimated GFR > 60 Vancomycin Loading Dose: 1500mg x1 Current Vancomycin Dosing Regimen: 750 Q12H Vancomycin Monitoring using AUC goal of 400 - 600 range with trough as surrogate marker: 495 Date and Time for next Vancomycin Level to be drawn: 05/03/24 @1200 Pharmacist Comments on Vancomycin Plan: patient got 1500mg load on 05/01 and overnight put in another gram on 05/02. Dosing to be 750mg Q12H, predicted trough 15.7. To be monitored tomorrow after trough and renal function. Vancomycin dosing will take advantage of [employer] as a clinical decision support tool that uses Bayesian modeling to calculate individual patient's pharmacokinetic parameters and forecast the patient's drug concentration time course with the target goal AUC 24 range of 400 - 600 mg/L/hr.
--- NOTE | 2024-05-02 07:00 | CA_ITS ---
Transthoracic Echocardiogram Patient (Last, First, Middle): Janell Moore, Gender: Female Date of : 1990 Age: 33 Procedure Date: 05/02/2024 Procedure Type: Transthoracic Echocardiogram Location: ER Height: 162.56 cm Weight: 56.7 kg BSA: 1.60 m2 Heart Rate: bpm BP: 105 / 59 mmHg Ticket Clerk: JACLYN Referring MD: Edmar Lim MD Symptoms: bacteremia IVDU, R O infective endocarditis Study Quality: Fair ECG Rhythm: Sinus Conclusions: - The left ventricular systolic function is normal. The calculated ejection fraction is 55% by biplane method. - No obvious valvular pathology seen on this study. Findings Left Ventricle Normal left ventricular cavity size. There is normal left ventricular wall thickness. The left ventricular systolic function is normal. The calculated ejection fraction is 55% by biplane method. There is no evidence of regional wall motion abnormalities. Diastolic function is normal for age. Right Ventricle Normal right ventricular cavity size and systolic function. Atria Both atria are normal in size. Aortic Valve There is a normal trileaflet aortic valve. There is no aortic valve stenosis. There is no aortic valve regurgitation. Mitral Valve The mitral valve appears normal. There is trace mitral valve regurgitation. There is no mitral valve stenosis. Pulmonic Valve The pulmonic valve is likely normal. Tricuspid Valve Normal tricuspid valve structure. There is mild tricuspid valve regurgitation. There is no evidence of pulmonary hypertension. Great Vessels The asc aorta is normal in size. Venous The inferior vena cava is normal in size and collapses greater than 50% with inspiration. Pericardium/Pleural There is no evidence of pericardial effusion. Prior Study Comparison No significant change compared to prior study dated: 07/05/2023. Recommendations, Care & Conclusions No obvious valvular pathology seen on this study. Consider a SARABJIT if clinically appropriate. Measurements 2D Linear Measurements IVSd: 0.73 0.6-0.9/0.6-1.0 cm LVIDd: 5.07 3.9-5.3/4.2-5.9 cm LVIDd Index: 3.17 2.4-3.2/2.2-3.1 cm/m2 LVIDs: 3.19 2.0-3.6 cm LVPWd: 0.71 0.7-1.1 cm Ao Root: 3.30 2.1-3.5 cm LA Diam: 3.50 2.7-3.8/3.0-4.0 cm LAIDs Index: 2.19 1.5-2.3 cm/m2 LV Mass: 151.26 67-162/88-224 g LV Mass Index: 94.54 43-95/49-115 g/m2 LVOT Diam: 2.10 3.0+(-)1.3 cm 2D Systolic Function EF 4C: 57.70 >55% EF 2C: 52.10 >55% EF BiP: 55.20 >55% Mitral Valve MV Pk E: 0.77 MV PK A: 0.40 MV Decel Time: 274.00 E/A: 1.90 E'Lateral: 14.70 E'Medial: 11.70 E/E' Med: 6.60 E/E' Lat: 5.20 PHT: 80.00 MVA PHT: 2.75 Decel [place]: 2.81 Aortic Valve AoV Pk Jossue: 1.33 AoV Mn Jossue: 0.90 AoV VTI: 0.30 AoV Pk Grad: 7.00 Aov Mn Grad: 4.00 JAJA Cont.VTI: 2.68 LVOT LVOT Pk Jossue: 0.97 LVOT Mn Jossue: 0.67 LVOT VTI: 0.23 LVOT Pk Grad: 4.00 LVOT Mn Grad: 2.00 LVOT Diam: 2.10 LVOT Area: 3.46 Diastolic Function MV Pk E: 0.77 MV Pk A: 0.40 E/A: 1.90 E'Medial: 11.70 E/E' Med: 6.60 E' Laterial: 14.70 E/E' Lat: 5.20 Right Ventricle TAPSE (mm): 30.90 TVS' Jossue: 15.20 Tricuspid Valve TR Pk Jossue: 2.12 TR Pk Grad: 18.00 RA Press: 8.00 RVSP: 26.00 Great Vessels Aorta Ao Root-2D: 3.30 2.0-3.7 cm Ao Asc: 2.90 2.1-3.4 cm Ao Arch: 2.60 Updated in Other Vendor System with Status of Final Sigifredo Noriega MD electronically signed on 05/02/2024 4:38:58 PM with status of Final
--- NOTE | 2024-05-02 07:45 | PC.NURSE ---
Methadone dose verified with salvador JOHNSON at [facility]. Last dose 04/30/2024. Patient takes 100mg in the AM and 50m at HS.
--- NOTE | 2024-05-02 07:50 | PC.NURSE ---
Patient to be transferred to [facility], report given
--- NOTE | 2024-05-02 07:59 | HE.PHANOTE ---
METHADONE Dose: 100mg in the morning, 50mg at bedtime. Last dosed on 04/30/24 @0900 per Elisha JOHNSON at [facility].
[2024-05-02] MEDS: cefTRIAXone sodium 1 GM VIAL IVPUSH (08:19)
[2024-05-02] MEDS: FLUoxetine HCl 20 MG CAPSULE 40 MG PO (08:19)
--- NOTE | 2024-05-02 08:20 | PC.NURSE ---
pt is alert and oriented, skin pwd, respirations even and unlabored, pt is reporting abd pain/lower back and right leg pain 11/13 called pharmacy to change the pt's gabapentin order which was reading tid PRN but the pt is saying that she takes it TID scheduled and the miralex order was daily at 0900 but pt states taking at PRN not scheduled
[2024-05-02] MEDS: methADONE HCl 20 MG/2 ML ORAL.CONC 100 MG PO (08:37)
[2024-05-02] MEDS: Gabapentin 400 MG CAPSULE PO ×3 (09:38→20:59)
--- NOTE | 2024-05-02 11:30 | HO.PM.IMPN ---
Subjective Subjective Date of Service: 05/02/24 Interval History: seen and evaluated this morning no neurological deficit feels little better already back pain Review of Systems Review of Systems: Yes all other systems are reviewed and are negative Physical Exam Vital Signs: Vital Signs: Last Vital Signs Temp 99.2 F 05/02/24 10:33 Pulse 56 05/02/24 10:33 Resp 16 05/02/24 10:33 BP 105/59 L 05/02/24 10:33 Pulse Ox 97 05/02/24 10:33 O2 Del Method Room Air 05/02/24 10:33 BMI result Body Mass Index 21.6 Const: Other: Constitutional : Awake, interactive, not in distress Neck : Normal inspection, Supple Cardiovascular : RRR, no JVP, no lower extremity edema Respiratory : good bilateral air entry, no crackles, wheezes or rhonchi Gastrointestinal: soft, lax, Normal bowel sounds, Non tender Skin : Warm, Dry, multiple injection castillo in upper and lower extremities Neurological : Alert & oriented x3, No focal deficit , CN 2-12 within normal Objective Data Active Medications Acetaminophen (Acetaminophen 325 Mg Tablet) 975 mg PO Q6H PRN PRN Reason: Pain, Mild (Pain Scale 1-3), fever or headache Ceftriaxone Sodium (Ceftriaxone Sodium 1 Gm Vial) 1 gm IVPUSH DAILY [facility] Last Admin: 05/02/24 08:19 Dose: 1 gm Documented By: JAMES Fluoxetine HCl (Fluoxetine Hcl 20 Mg Capsule) 40 mg PO DAILY [facility] Last Admin: 05/02/24 08:19 Dose: 40 mg Documented By: JAMES Gabapentin (Gabapentin 400 Mg Capsule) 400 mg PO TID [facility] Last Admin: 05/02/24 09:38 Dose: 400 mg Documented By: JAEMS Vancomycin HCl 750 mg/ Sodium (Chloride) 265 mls @ 265 mls/hr IV Q12H [facility] Ibuprofen (Ibuprofen 600 Mg Tablet) 600 mg PO Q8H PRN PRN Reason: Pain (Scale Score 4-6) Magnesium Hydroxide (Milk Of Magnesia 30 Ml Oral.Susp) 30 ml PO DAILY PRN PRN Reason: Constipation Melatonin (Melatonin 3 Mg Tablet) 6 mg PO BEDTIME PRN PRN Reason: Insomnia Methadone HCl (Methadone Hcl 20 Mg/2 Ml Oral.Conc) 100 mg PO DAILY [facility] Last Admin: 05/02/24 08:37 Dose: 100 mg Documented By: JAMES Co-signed By: CHRIS Methadone HCl (Methadone Hcl 20 Mg/2 Ml Oral.Conc) 50 mg PO BEDTIME [facility] Pharmacy Consult (Consult Rx Vancomycin Dosing) 1 each MISCELLANE DAILY PRN PRN Reason: Consult order Polyethylene Glycol (Polyethylene Glycol 3350 17 Gm Powd.Pack) 17 gm PO DAILY PRN PRN Reason: constipation Sodium Chloride (0.9 % Sodium Chloride Flush 3 Ml Syringe) 3 ml IVFLUSH QSHIFT [facility] Last Admin: 05/02/24 08:23 Dose: 3 ml Documented By: JAMES Labs 05/01/24 04:23 05/01/24 04:23 Labs: Laboratory Results - last 24 hr 05/01/24 11:44 Urine Color Yellow Urine Appearance Clear Urine pH 5.5 Ur Specific [place] 1.020 Urine Protein Negative Urine Glucose (UA) Negative Urine Ketones Negative Urine Blood Negative Urine Nitrite Negative Ur Leukocyte Esterase Negative Urine Opiates Screen POSITIVE H Ur Buprenorphine Scrn Not Detected Ur Oxycodone Screen Not Detected Urine Methadone Screen Positive H Urine Fentanyl Screen POSITIVE H Ur Barbiturates Screen Not Detected Ur Phencyclidine Scrn Not Detected Ur Amphetamines Screen Not Detected U Benzodiazepines Scrn Not Detected Urine Cocaine Screen POSITIVE H U Marijuana (THC) Screen Not Detected Microbiology Microbiology Results: Microbiology 05/01/24 04:23 Blood Culture - Preliminary Blood - Venous Prelim: GPC Gram Stain only 05/01/24 04:23 Blood Culture - Preliminary Blood - Venous Prelim: GPC Gram Stain only Assessment and Plan (1) Gram-positive cocci bacteremia: Status: Acute (2) Cocaine abuse: Status: Acute (3) Epidural abscess: Status: Acute Plan Janell Moore is a 33 years old woman with PMHx significant for opiate dependence on methadone, MRSA and IVDU admitted with: Acute Epidural abscess, T10-T11 complicated with Gram-positive coccibacteremia ED provide discussed with neurosurgery service (LICHA Finley) at [facility] who has seen the MRI and discuss the case with neurosurgeon and recommended only IV antibiotics as the patient has no neuro deficits. Repeat blood cultures get an Echo Continue empiric IV antibiotic therapy with vancomycin and ceftriaxone. follow sensitivity of Blood cultures ID consult. Vancomycin trough Opiates dependence w IVDU Continue methadone Addiction medicine consult. Mood disorder. Continue fluoxetine. Constipation likely secondary to opiates. MiraLax daily. Mom p.r.n. DVT prophylaxis: Early ambulation. Code status: Full Patient will need hospitalization overnight for epidural abscess and bacteremia treatment with IV antibiotics pending clearing infection from blood and further work up Quality Stroke Does the patient have a stroke diagnosis?: No VTE Prior VTE?: No VTE Risk Level:: Medical - moderate - high VTE Device Contraindication: N/A - Device Ordered VTE Drug Contraindication: Treatment Not Indicated
--- NOTE | 2024-05-02 11:42 | MHC.EDTECH ---
Provided lunch try to patient.
--- NOTE | 2024-05-02 12:54 | MHC.EDTECH ---
This tech presented to patient to draw blood work. Cultures x2 as well as CMP, MG, CBC. patient politely refusing at this time. Stating I can't right now, I just can't. Will make RN aware.
--- NOTE | 2024-05-02 13:13 | PC.NURSE ---
attempted to draw the pt x2 but pt is a very hard stick, unable to get blood at this time, pct is also attempting
--- NOTE | 2024-05-02 13:21 | MHC.EDTECH ---
Difficult Venipuncture - attempt x2 with no success. TYRESE Couch attempt x2 with no success.
--- NOTE | 2024-05-02 13:43 | MHC.CM.PN ---
pt lives with her parents gets her methadone [facility] where she sees a psychiatrist ,and counselor she has her own ride home declines offer of a hcp dc plan home
--- NOTE | 2024-05-02 13:51 | MHC.EDTECH ---
Call to phlebotomy department. Explained poor access and difficult draw x4. Lab to send someone up to attempt to obtain sample. This tech made patient aware that the lab would be in.
[2024-05-02 14:10] LABS: Basophils Percent Auto 0.2 % (0-2); Hematocrit 29.2 % (37.0-47.0); Hemoglobin 9.4 g/dl (12.0-16.0); Imm Gran Abs Auto 0.05 X10*3/uL (0.00-0.03); Imm Gran Pct Auto 0.9 % (0.0-0.4); Lymphocytes Absolute Auto 1.4 X10*3/uL (1.2-4.9); Lymphocytes Percent Auto 24.8 % (20-40); MANUAL DIFF FLAG NO; Mean Corpuscular HGB Conc 32.2 g/dl (31.0-35.0); Mean Corpuscular Hemoglobin 26.4 pg (27.0-33.0); Mean Platelet Volume 9.5 fL (9.4-12.3); Monocytes Absolute Auto 0.5 X10*3/uL (0.1-1.2); Monocytes Percent Auto 9.2 % (2-11); Neutrophils Absolute Auto 3.6 x10*3/uL (2.0-8.3); Neutrophils Percent Auto 64.9 % (45-73); Platelet Count 211 X10*3/uL (160-400); Red Blood Count 3.56 X10*6/uL (4.20-5.50); Red Cell Distribution Width 13.6 % (11.0-16.0); White Blood Count 5.6 X10*3/uL (4.8-10.8)
[2024-05-02] MEDS: vancomycin HCL 750 MG in 0.9 % Sodium Chloride 250 ML 265 MG IV (14:39)
[2024-05-02] MEDS: Ibuprofen 600 MG TABLET PO ×2 (14:44→22:44)
[2024-05-02 14:47] LABS: Alanine Aminotransferase 10 U/L (0-31); Alkaline Phosphatase 74 U/L (39-117); Anion Gap 19 (12-20); Aspartate Amino Transferase 16 U/L (5-31); Bilirubin Total 0.1 mg/dL (0.0-1.0); Blood Urea Nitrogen 11 mg/dL (9-16); Calcium 8.3 mg/dL (8.4-10.2); Carbon Dioxide 23 mmol/L (22-29); Chloride 102 mmol/L (96-108); Creatinine Clr Calc Pharmacy 91.5; Estimated Glomerular Filt Rate > 60; Glucose Random 106 mg/dL (60-115); Magnesium 1.9 mg/dL (1.6-2.6); Potassium 3.8 mmol/L (3.3-5.1); Sodium 140 mmol/L (135-145); Total Protein 6.5 g/dL (6.5-8.0)
--- NOTE | 2024-05-02 16:00 | PC.NURSE ---
per previous RN and tech, pt is a difficult stick and they were unable to grab 2nd set of cultures. d/t pt being a difficult stick, admitting provider notified/aware. admitting provider states that pedi culture bottle could be utilized to obtain 2nd set of cultures. pt refusing for this RN and tech to attempt to obtain 2nd set. pt also requesting stronger pain medication for lower abd/lower back/right leg as previous tylenol and ibuprofen administration was ineffective. provider notified/aware.
--- NOTE | 2024-05-02 16:50 | MHC.EDTECH ---
Dinner tray provided
[2024-05-02] MEDS: Morphine Sulfate 2 MG/ML CARTRIDGE 4 MG IVPUSH (16:56)
--- NOTE | 2024-05-02 16:59 | PC.NURSE ---
pt medicated per provider order. effectiveness pending.
--- NOTE | 2024-05-02 18:45 | PC.NURSE ---
pt agreeable to obtaining 2nd set of blood cultures. 2nd set via pediatric culture bottle obtained/sent to lab by this RN.
--- NOTE | 2024-05-02 21:31 | HO.ADDICTCON ---
History of Present Illness Date of Service: 05/02/2024 Chief Complaint: Epidural abscess Reason for Consult: OUD Sources of Information: patient interviewed and chart reviewed HPI Narrative: Patient is a 33 year old female medically admitted with epidural abscess secondary to IVDU. [facility], while she is awaiting room assignment on the medical floor. Awake, alert lying on her side, engaged in interview. She reports she is currently engaged in treatment at [facility]. Her current dose of methadone is 100mg in AM and 50mg in afternoon She states that 3 weeks ago she began split dosing due to ongoing opiate use, which usually occurred in the evenings She reports she has reduced to 1-2 bags IV every day. We discussed injection use --she acknowledged that she does not always use new syringes with every use. She identified transportation as a challenge to obtaining new injection supplies from local [facility] She reports prior IVDU related skin and soft tissue infections. Denies any history of endocarditis. At time of interview she reports ongoing discomfort, although she had recently received a dose of morphine. She states pain is in her back and it is difficult to find a position to be comfortable in. No withdrawal reported as she has received her home dose of methadone while here Review of Systems Constitutional: Reports as per HPI Diagnostics Vital Signs (24Hr): Vital Signs - 24 hr 05/01/24 21:57 05/02/24 00:33 05/02/24 04:45 Temperature 98.7 F 97.8 F 98.6 F Pulse Rate 68 62 54 Respiratory Rate 18 16 16 Blood Pressure 110/61 110/62 97/51 L Pulse Oximetry 98 97 98 Oxygen Delivery Method Room Air Room Air Room Air 05/02/24 09:11 05/02/24 10:33 05/02/24 14:00 Temperature 98.8 F 99.2 F 98.9 F Pulse Rate 62 56 57 Respiratory Rate 16 16 14 Blood Pressure 119/65 105/59 L 115/64 Pulse Oximetry 100 97 98 Oxygen Delivery Method Room Air Room Air Room Air 05/02/24 19:29 05/02/24 20:39 Temperature 98.1 F 97.2 F Pulse Rate 50 50 Respiratory Rate 18 18 Blood Pressure 111/56 L 109/59 L Pulse Oximetry 96 98 Oxygen Delivery Method Room Air Room Air BMI result Body Mass Index 21.7 Labs 05/02/24 13:57 05/02/24 13:57 Labs: Laboratory Results - last 48 hr 05/01/24 05/01/24 05/02/24 04:23 11:44 13:57 WBC 8.3 5.6 RBC 3.81 L 3.56 L Hgb 10.2 L 9.4 L Hct 30.9 L 29.2 L MCV 81.1 82.0 MCH 26.8 L 26.4 L MCHC 33.0 32.2 RDW 13.8 13.6 Plt Count 214 D 211 MPV 9.3 L 9.5 Immature Gran % (Auto) 0.2 0.9 H Neut % (Auto) 80.0 H 64.9 Lymph % (Auto) 11.0 L 24.8 [place] % (Auto) 8.4 9.2 Eos % (Auto) 0.0 0.0 Baso % (Auto) 0.4 0.2 Lymph # (Auto) 0.9 L 1.4 [place] # (Auto) 0.7 0.5 Eos # (Auto) 0.0 0.0 Baso # (Auto) 0.0 0.0 Abs Immat Gran (auto) 0.02 0.05 H Absolute Neuts (auto) 6.7 3.6 Absolute Nucleated RBC 0.000 0.000 Nucleated RBC % (auto) 0.0 0.0 ESR 94 H Sodium 133 L 140 Potassium 3.6 3.8 Chloride 97 102 Carbon Dioxide 24 23 Anion Gap 16 19 BUN 11 11 Creatinine 0.99 0.74 Estim Creat Clear Calc 68.4 91.5 Estimated GFR > 60 > 60 Random Glucose 91 106 Lactic Acid 0.7 Calcium 9.1 D 8.3 L D Magnesium 1.8 1.9 Total Bilirubin 0.3 0.1 Direct Bilirubin 0.2 AST 21 16 ALT 14 10 Alkaline Phosphatase 83 74 C-Reactive Protein 23.89 H Total Protein 7.9 6.5 Albumin 3.9 3.0 L Lipase 8 Beta HCG, Quant < 2 Urine Color Yellow Urine Appearance Clear Urine pH 5.5 Ur Specific [place] 1.020 Urine Protein Negative Urine Glucose (UA) Negative Urine Ketones Negative Urine Blood Negative Urine Nitrite Negative Ur Leukocyte Esterase Negative Urine Opiates Screen POSITIVE H Ur Buprenorphine Scrn Not Detected Ur Oxycodone Screen Not Detected Urine Methadone Screen Positive H Urine Fentanyl Screen POSITIVE H Ur Barbiturates Screen Not Detected Ur Phencyclidine Scrn Not Detected Ur Amphetamines Screen Not Detected U Benzodiazepines Scrn Not Detected Urine Cocaine Screen POSITIVE H U Marijuana (THC) Screen Not Detected Influenza Type A (PCR) NEGATIVE Influenza Type B (PCR) NEGATIVE RSV RNA Qual (PCR) NEGATIVE SARS-CoV-2 RNA (RT-PCR) NEGATIVE Imaging Radiology Impressions: ITS Impressions Abdomen/Pelvis CT 05/01/24 06:00 IMPRESSION: 1. No acute abnormality within the abdomen or pelvis. 2. Moderate to large stool burden overall. 3. Prominent right external iliac node measuring up to 1.1 cm in short axis, nonspecific. There are additional bilateral pelvic wall lymph nodes that are prominent though not pathologically enlarged. Fleischner guidelines were followed. Electronically signed by: Ladi Donnelly DO 05/01/2024 09:14 AM EST RP Lumbar Spine MRI 05/01/24 11:50 IMPRESSION: Within the limitations of the study, -Partially imaged T1 hypointense, T2/STIR hyperintense lesion involving the dorsal epidural space at the level of T10-11. Recommend further evaluation with MRI of the thoracic spine with and without contrast. -Mild degenerative changes at L4-L5 and L5-S1 without significant spinal canal or neural foraminal narrowing. 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 There is resultant mass effect on the cord with anterior and rightward displacement of the thecal sac. Differential considerations include meningioma versus nerve sheath tumor versus focal granulomatous disease versus metastatic disease. Electronically signed by: Prosper Otero MD 05/01/2024 08:25 PM EST RP Mental Status Exam Mental Status Exam Patient Appearance: Well Grooomed and Inappropriate Patient Orientation: Person, Place, Time and Situation Level of Consciousness: Awake and Alert Patient Behavior: Appropriate and Talkative Mood Description: Calm Affect Description: Calm Speech Pattern: Clear Medications Medications Current Medications Acetaminophen (Acetaminophen 325 Mg Tablet) 975 mg PO Q6H PRN PRN Reason: Pain, Mild (Pain Scale 1-3), fever or headache Ceftriaxone Sodium (Ceftriaxone Sodium 1 Gm Vial) 1 gm IVPUSH DAILY [facility] Last Admin: 05/02/24 08:19 Dose: 1 gm Fluoxetine HCl (Fluoxetine Hcl 20 Mg Capsule) 40 mg PO DAILY [facility] Last Admin: 05/02/24 08:19 Dose: 40 mg Gabapentin (Gabapentin 400 Mg Capsule) 400 mg PO TID [facility] Last Admin: 05/02/24 20:59 Dose: 400 mg Vancomycin HCl 750 mg/ Sodium (Chloride) 265 mls @ 265 mls/hr IV Q12H [facility] Last Infusion: 05/02/24 15:53 Dose: Infused Ibuprofen (Ibuprofen 600 Mg Tablet) 600 mg PO Q8H PRN PRN Reason: Pain (Scale Score 4-6) Last Admin: 05/02/24 14:44 Dose: 600 mg Magnesium Hydroxide (Milk Of Magnesia 30 Ml Oral.Susp) 30 ml PO DAILY PRN PRN Reason: Constipation Melatonin (Melatonin 3 Mg Tablet) 6 mg PO BEDTIME PRN PRN Reason: Insomnia Methadone HCl (Methadone Hcl 20 Mg/2 Ml Oral.Conc) 100 mg PO DAILY [facility] Last Admin: 05/02/24 08:37 Dose: 100 mg Methadone HCl (Methadone Hcl 20 Mg/2 Ml Oral.Conc) 50 mg PO BEDTIME [facility] Last Admin: 05/02/24 21:00 Dose: 50 mg Morphine Sulfate (Morphine Sulfate 2 Mg/Ml Cartridge) 4 mg IVPUSH Q4H PRN; Protocol PRN Reason: Pain, Severe (Pain Scale 7-10) Last Admin: 05/02/24 16:56 Dose: 4 mg Pharmacy Consult (Consult Rx Vancomycin Dosing) 1 each MISCELLANE DAILY PRN PRN Reason: Consult order Polyethylene Glycol (Polyethylene Glycol 3350 17 Gm Powd.Pack) 17 gm PO DAILY PRN PRN Reason: constipation Sodium Chloride (0.9 % Sodium Chloride Flush 3 Ml Syringe) 3 ml IVFLUSH QSHIFT [facility] Last Admin: 05/02/24 15:41 Dose: Not Given Allergies Allergies Allergy/AdvReac Type Severity Reaction Status Date / Time No Known Allergies Allergy Verified 05/01/24 03:43 [No Known Allergies*] Assessment & Plan Assessment & Plan (1) Opioid use disorder: Status: Acute Code(s): F11.90 - Opioid use, unspecified, uncomplicated Assessment and Plan: continue home dose of methadone opiate pain medications as needed for back pain discussed safer injection supplies--educated patient regarding deliver of supplies from [employer] will continue to follow during admission to provide support as needed Total time managing care of this patient today _35___ minutes. PMFSH Past Medical History Medical History Opiate dependence MRSA (methicillin resistant staph aureus) culture positive Social History Social History Household Members: Family Housing: House Do you presently have visiting nurse or other home services: No Alcohol intake: never Patient Tobacco Use Status: Never used Tobacco Tobacco use type: Cigarette Cigarettes Per Day: 2 Substance Use Type: Crack/Cocaine, Heroin and Opiates service: No
[2024-05-03] VITALS (7 sets, daily range): BP systolic 99–132; BP diastolic 57–65; PULSE 50–62; RESP 12–18; TEMP 36.1–36.5; O2SAT 94–100
--- NOTE | 2024-05-03 00:44 | P.CNID_ITS ---
History of Present Illness Data of Consult Service Date: 05/02/24 Requesting physician: Edmar Lim Primary Care Provider: MD RIVKA Flores Reason for consult: lumbar spine mass She presents with lower thoracic spine pain over last two weeks. She has ESR of 94 and thoracic spine mass. 05/01 blood cultures gram positive cocci. Review of Systems 2 Review of Systems: Yes all other systems are reviewed and are negative PMFSH Past Medical History Medical History Opiate dependence MRSA (methicillin resistant staph aureus) culture positive Family History Family history: reviewed and not pertinent Social History Social History Household Members: Family Housing: House Do you presently have visiting nurse or other home services: No Alcohol intake: never Patient Tobacco Use Status: Never used Tobacco Tobacco use type: Cigarette Cigarettes Per Day: 2 Substance Use Type: Crack/Cocaine, Heroin and Opiates service: No Meds Allergies Allergy/AdvReac Type Severity Reaction Status Date / Time No Known Allergies Allergy Verified 05/01/24 03:43 [No Known Allergies*] Active Medications: Current Medications Acetaminophen (Acetaminophen 325 Mg Tablet) 975 mg PO Q6H PRN PRN Reason: Pain, Mild (Pain Scale 1-3), fever or headache Ceftriaxone Sodium (Ceftriaxone Sodium 1 Gm Vial) 1 gm IVPUSH DAILY [facility] Last Admin: 05/02/24 08:19 Dose: 1 gm Fluoxetine HCl (Fluoxetine Hcl 20 Mg Capsule) 40 mg PO DAILY [facility] Last Admin: 05/02/24 08:19 Dose: 40 mg Gabapentin (Gabapentin 400 Mg Capsule) 400 mg PO TID [facility] Last Admin: 05/02/24 20:59 Dose: 400 mg Vancomycin HCl 750 mg/ Sodium (Chloride) 265 mls @ 265 mls/hr IV Q12H [facility] Last Infusion: 05/02/24 15:53 Dose: Infused Ibuprofen (Ibuprofen 600 Mg Tablet) 600 mg PO Q8H PRN PRN Reason: Pain (Scale Score 4-6) Last Admin: 05/02/24 22:44 Dose: 600 mg Magnesium Hydroxide (Milk Of Magnesia 30 Ml Oral.Susp) 30 ml PO DAILY PRN PRN Reason: Constipation Melatonin (Melatonin 3 Mg Tablet) 6 mg PO BEDTIME PRN PRN Reason: Insomnia Methadone HCl (Methadone Hcl 20 Mg/2 Ml Oral.Conc) 100 mg PO DAILY [facility] Last Admin: 05/02/24 08:37 Dose: 100 mg Methadone HCl (Methadone Hcl 20 Mg/2 Ml Oral.Conc) 50 mg PO BEDTIME [facility] Last Admin: 05/02/24 21:00 Dose: 50 mg Morphine Sulfate (Morphine Sulfate 2 Mg/Ml Cartridge) 4 mg IVPUSH Q4H PRN; Protocol PRN Reason: Pain, Severe (Pain Scale 7-10) Last Admin: 05/02/24 16:56 Dose: 4 mg Pharmacy Consult (Consult Rx Vancomycin Dosing) 1 each MISCELLANE DAILY PRN PRN Reason: Consult order Polyethylene Glycol (Polyethylene Glycol 3350 17 Gm Powd.Pack) 17 gm PO DAILY PRN PRN Reason: constipation Sodium Chloride (0.9 % Sodium Chloride Flush 3 Ml Syringe) [facility] Last Admin: 05/02/24 22:45 Dose: 3 ml Home Medications ?Medication ?Instructions ?Recorded ?Confirmed ?Last Taken ?Type methadone 10 mg/mL oral concentrate 100 mg PO DAILY 07/05/23 05/02/24 Unknown History fluoxetine 40 mg capsule 40 mg PO DAILY 05/01/24 05/01/24 Unknown History gabapentin 400 mg capsule 400 mg PO TID [facility] 05/01/24 05/01/24 Unknown History ibuprofen 600 mg tablet 600 mg PO Q8H PRN Pain (Scale 05/01/24 05/01/24 Unknown History Score 4-6) polyethylene glycol 3350 17 17 g PO DAILY PRN Constipation 05/01/24 05/01/24 Unknown History gram/dose oral powder (Miralax) methadone 10 mg/mL oral concentrate 50 mg PO BEDTIME 05/02/24 05/02/24 Unknown History Physical Exam 2 Vital Signs: Vital Signs: Last Vital Signs Temp 97.2 F 05/02/24 23:31 Pulse 50 05/02/24 23:31 Resp 16 05/02/24 23:31 BP 141/57 H 05/02/24 23:31 Pulse Ox 98 05/02/24 23:31 O2 Del Method Room Air 05/02/24 23:31 BMI result Body Mass Index 21.7 Const: General: cooperative HEENT: Head: Yes normal to inspection Face and sinus: Yes normal facial exam Mouth: Normal oral and palatal mucosa present Teeth and gingiva: d entition normal Eyes: General: appearance normal, both eyes and all related structures P upils: Equal, round and reactive pupils present Resp: Effort & Inspection: normal respiratory effort Cardio: Rate: regular rate Rhythm: regular rhythm GI: Palpation (GI): Soft to palpation and nontender : General: Yes no CVA tenderness Back/Spine/Pelvis: Back: no CVA tenderness Skin: General skin exam: no rashes or lesions noted Neuro: General: moves all extremities Cranial nerves: Yes Equal, round and reactive pupils present Extrem: General: Yes normal to inspection Psych: Appearance: grossly normal Results Labs 05/02/24 13:57 05/02/24 13:57 Labs: Short CBC 05/02/24 Range/Units 13:57 WBC 5.6 (4.8-10.8) X10*3/uL Hgb 9.4 L (12.0-16.0) g/dl Hct 29.2 L (37.0-47.0) % Plt Count 211 (160-400) X10*3/uL BMP 05/02/24 13:57 Sodium 140 Potassium 3.8 Chloride 102 Carbon Dioxide 23 BUN 11 Creatinine 0.74 Calcium 8.3 L D Liver Function 05/02/24 Range/Units 13:57 Total Bilirubin 0.1 (0.0-1.0) mg/dL AST 16 (5-31) U/L ALT 10 (0-31) U/L Alkaline Phosphatase 74 (39-117) U/L Albumin 3.0 L (3.5-5.0) g/dL Microbiology Microbiology Results: Microbiology 05/01/24 04:23 Blood - Venous Blood Culture - Preliminary Prelim: GPC Gram Stain only 05/01/24 04:23 Blood - Venous Blood Culture - Preliminary Prelim: GPC Gram Stain only Assessment and Plan (1) Gram-positive cocci bacteremia: Status: Acute (2) Epidural abscess: Status: Acute (3) Opioid use disorder: Status: Acute Plan This is likely gram positive cocci from IVDU resulting in spinal abscess Would give IV Vancomycin Check echo. Likely six weeks IV Vancomycin Check HIV test Neurosurgery eval of data.
[2024-05-03] MEDS: vancomycin HCL 750 MG in 0.9 % Sodium Chloride 250 ML 265 MG IV (02:31)
[2024-05-03] MEDS: FLUoxetine HCl 20 MG CAPSULE 40 MG PO (08:09)
[2024-05-03] MEDS: Gabapentin 400 MG CAPSULE PO ×3 (08:10→22:32)
[2024-05-03] MEDS: Ibuprofen 600 MG TABLET PO (08:10)
[2024-05-03] MEDS: methADONE HCl 20 MG/2 ML ORAL.CONC 100 MG PO (08:11)
[2024-05-03] MEDS: 0.9 % Sodium Chloride Flush 3 ML SYRINGE IVFLUSH ×2 (08:18→17:29)
[2024-05-03] MEDS: Ketorolac Tromethamine 30 MG/ML VIAL IVPUSH (08:47)
--- NOTE | 2024-05-03 11:32 | P.PNIM_ITS ---
Subjective Subjective Date of Service: 05/03/24 Interval History: seen and evaluated this morning no neurological deficit, reporting back pain repeated culture pending Negative Echo for vegetations Review of Systems Review of Systems: Yes all other systems are reviewed and are negative Physical Exam 2 Vital Signs: Vital Signs: Last Vital Signs Temp 97.2 F 05/03/24 11:16 Pulse 51 05/03/24 11:16 Resp 12 05/03/24 11:16 BP 99/58 L 05/03/24 11:16 Pulse Ox 94 05/03/24 11:16 O2 Del Method Room Air 05/03/24 11:16 BMI result Body Mass Index 21.7 Const: Other: Constitutional : Awake, interactive, not in distress Neck : Normal inspection, Supple Cardiovascular : RRR, no JVP, no lower extremity edema Respiratory : good bilateral air entry, no crackles, wheezes or rhonchi Gastrointestinal: soft, lax, Normal bowel sounds, Non tender Skin : Warm, Dry, multiple injection castillo in upper and lower extremities Neurological : Alert & oriented x3, No focal deficit , CN 2-12 within normal Objective Data Active Medications Acetaminophen (Acetaminophen 325 Mg Tablet) 975 mg PO Q6H PRN PRN Reason: Pain, Mild (Pain Scale 1-3), fever or headache Fluoxetine HCl (Fluoxetine Hcl 20 Mg Capsule) 40 mg PO DAILY [facility] Last Admin: 05/03/24 08:09 Dose: 40 mg Documented By: IRA Gabapentin (Gabapentin 400 Mg Capsule) 400 mg PO TID [facility] Last Admin: 05/03/24 08:10 Dose: 400 mg Documented By: IRA Vancomycin HCl 750 mg/ Sodium (Chloride) 265 mls @ 265 mls/hr IV Q12H [facility] Last Infusion: 05/03/24 03:31 Dose: Infused Documented By: HERIBERTO Ibuprofen (Ibuprofen 600 Mg Tablet) 600 mg PO Q8H PRN PRN Reason: Pain (Scale Score 4-6) Last Admin: 05/03/24 08:10 Dose: 600 mg Documented By: IRA Magnesium Hydroxide (Milk Of Magnesia 30 Ml Oral.Susp) 30 ml PO DAILY PRN PRN Reason: Constipation Melatonin (Melatonin 3 Mg Tablet) 6 mg PO BEDTIME PRN PRN Reason: Insomnia Methadone HCl (Methadone Hcl 20 Mg/2 Ml Oral.Conc) 100 mg PO DAILY [facility] Last Admin: 05/03/24 08:11 Dose: 100 mg Documented By: IRA Co-signed By: VIRA Methadone HCl (Methadone Hcl 20 Mg/2 Ml Oral.Conc) 50 mg PO BEDTIME [facility] Last Admin: 05/02/24 21:00 Dose: 50 mg Documented By: HERIBERTO Co-signed By: AMEENA Morphine Sulfate (Morphine Sulfate 2 Mg/Ml Cartridge) 4 mg IVPUSH Q4H PRN; Protocol PRN Reason: Pain, Severe (Pain Scale 7-10) Last Admin: 05/02/24 16:56 Dose: 4 mg Documented By: LUTHER Pharmacy Consult (Consult Rx Vancomycin Dosing) 1 each MISCELLANE DAILY PRN PRN Reason: Consult order Polyethylene Glycol (Polyethylene Glycol 3350 17 Gm Powd.Pack) 17 gm PO DAILY PRN PRN Reason: constipation Sodium Chloride (0.9 % Sodium Chloride Flush 3 Ml Syringe) 3 ml IVFLUSH QSIDFT [facility] Last Admin: 05/03/24 08:18 Dose: 3 ml Documented By: IRA Labs 05/02/24 13:57 05/02/24 13:57 Labs: Laboratory Results - last 24 hr 05/02/24 13:57 MCV 82.0 MCH 26.4 L MCHC 32.2 RDW 13.6 Plt Count 211 MPV 9.5 Immature Gran % (Auto) 0.9 H Neut % (Auto) 64.9 Lymph % (Auto) 24.8 [place] % (Auto) 9.2 Eos % (Auto) 0.0 Baso % (Auto) 0.2 Lymph # (Auto) 1.4 [place] # (Auto) 0.5 Eos # (Auto) 0.0 Baso # (Auto) 0.0 Abs Immat Gran (auto) 0.05 H Absolute Neuts (auto) 3.6 Absolute Nucleated RBC 0.000 Nucleated RBC % (auto) 0.0 Anion Gap 19 Estim Creat Clear Calc 91.5 Estimated GFR > 60 Random Glucose 106 Calcium 8.3 L D Magnesium 1.9 Total Bilirubin 0.1 AST 16 ALT 10 Alkaline Phosphatase 74 Total Protein 6.5 Albumin 3.0 L Microbiology Microbiology Results: Microbiology 05/01/24 04:23 Blood Culture - Preliminary Blood - Venous Staphylococcus aureus 05/01/24 04:23 Blood Culture - Preliminary Blood - Venous Staphylococcus aureus Assessment and Plan (1) Gram-positive cocci bacteremia: Status: Acute (2) Cocaine abuse: Status: Acute (3) Epidural abscess: Status: Acute (4) Opioid use disorder: Status: Acute Plan Janell Moore is a 33 years old woman with PMHx significant for opiate dependence on methadone, MRSA and IVDU admitted with: Acute Epidural abscess, T10-T11 complicated with Staph Aureus ED provide discussed with neurosurgery service (LICHA Finley) at [facility] who has seen the MRI and discuss the case with neurosurgeon and recommended only IV antibiotics as the patient has no neuro deficits. Repeat blood cultures Echo negative for vegetations Continue IV antibiotic therapy with Vancomycin follow sensitivity of Blood cultures ID consult. likely 6 weeks of IV Vancomycin Vancomycin trough Opiates dependence w IVDU Continue methadone Addiction medicine following Mood disorder. Continue fluoxetine. Constipation likely secondary to opiates. MiraLax daily. Mom p.r.n. DVT prophylaxis: Early ambulation. Code status: Full Patient will need hospitalization overnight for epidural abscess and bacteremia treatment with IV antibiotics pending clearing infection from blood and further work up Quality Stroke Does the patient have a stroke diagnosis?: No VTE Prior VTE?: No VTE Risk Level:: Medical - moderate - high VTE Device Contraindication: N/A - Device Ordered VTE Drug Contraindication: Treatment Not Indicated
[2024-05-03] MEDS: Acetaminophen 325 MG TABLET 975 MG PO (12:31)
[2024-05-03 13:06] LABS: Creatinine Clr Calc Pharmacy 74.5; Estimated Glomerular Filt Rate > 60
[2024-05-03 13:08] LABS: Vancomycin Random 8.8 mcg/mL (15-20)
--- NOTE | 2024-05-03 13:28 | HE.PHANOTE ---
Re: Vanco Improving renal function. Trough returned at 8.8. Dose increased to 1,000 mg q12h, with predicted AUC 541, and predicted trough 15.6. Next trough 05/04 @ 1200.
[2024-05-03] MEDS: vancomycin HCL 1,000 MG in 0.9 % Sodium Chloride 250 ML 270 MG IV (17:26)
[2024-05-03] MEDS: methADONE HCl 20 MG/2 ML ORAL.CONC 50 MG PO (22:33)
[2024-05-03] MEDS: Morphine Sulfate 2 MG/ML CARTRIDGE 4 MG IVPUSH (23:18)
[2024-05-04 03:33] VITALS: BP 101/58; PULSE 57; RESP 16; TEMP 36; O2SAT 97
[2024-05-04] MEDS: vancomycin HCL 1,000 MG in 0.9 % Sodium Chloride 250 ML 270 MG IV (05:45)
[2024-05-04 07:37] VITALS: BP 121/64; PULSE 65; RESP 16; TEMP 36.8; O2SAT 98
[2024-05-04] MEDS: FLUoxetine HCl 20 MG CAPSULE 40 MG PO (08:11)
[2024-05-04] MEDS: Gabapentin 400 MG CAPSULE PO ×3 (08:11→19:45)
[2024-05-04] MEDS: methADONE HCl 20 MG/2 ML ORAL.CONC 100 MG PO (08:11)
[2024-05-04] MEDS: 0.9 % Sodium Chloride Flush 3 ML SYRINGE IVFLUSH ×3 (08:14→19:45)
[2024-05-04] MEDS: Morphine Sulfate 2 MG/ML CARTRIDGE 4 MG IVPUSH ×4 (09:03→22:44)
--- NOTE | 2024-05-04 10:35 | P.PNIM_ITS ---
Subjective Subjective Date of Service: 05/04/24 Interval History: seen and evaluated this morning no neurological deficit, reporting back and RLE pain repeated culture neg after 24 hrs Negative Echo for vegetations Review of Systems Review of Systems: Yes all other systems are reviewed and are negative Physical Exam 2 Vital Signs: Vital Signs: Last Vital Signs Temp 98.3 F 05/04/24 07:37 Pulse 65 05/04/24 07:37 Resp 16 05/04/24 07:37 BP 121/64 05/04/24 07:37 Pulse Ox 98 05/04/24 07:37 O2 Del Method Room Air 05/04/24 07:37 BMI result Body Mass Index 21.7 Const: Other: Constitutional : Awake, interactive, not in distress Neck : Normal inspection, Supple Cardiovascular : RRR, no JVP, no lower extremity edema Respiratory : good bilateral air entry, no crackles, wheezes or rhonchi Gastrointestinal: soft, lax, Normal bowel sounds, Non tender Skin : Warm, Dry, multiple injection castillo in upper and lower extremities Neurological : Alert & oriented x3, No focal deficit Objective Data Active Medications Acetaminophen (Acetaminophen 325 Mg Tablet) 975 mg PO Q6H PRN PRN Reason: Pain, Mild (Pain Scale 1-3), fever or headache Last Admin: 05/03/24 12:31 Dose: 975 mg Documented By: IRA Fluoxetine HCl (Fluoxetine Hcl 20 Mg Capsule) 40 mg PO DAILY [facility] Last Admin: 05/04/24 08:11 Dose: 40 mg Documented By: DANIE Gabapentin (Gabapentin 400 Mg Capsule) 400 mg PO TID [facility] Last Admin: 05/04/24 08:11 Dose: 400 mg Documented By: DANIE Vancomycin HCl 1,000 mg/ (Sodium Chloride) 270 mls @ 270 mls/hr IV Q12H [facility] Last Infusion: 05/04/24 06:45 Dose: Infused Documented By: MONICO Ibuprofen (Ibuprofen 600 Mg Tablet) 600 mg PO Q8H PRN PRN Reason: Pain (Scale Score 4-6) Last Admin: 05/03/24 08:10 Dose: 600 mg Documented By: IRA Magnesium Hydroxide (Milk Of Magnesia 30 Ml Oral.Susp) 30 ml PO DAILY PRN PRN Reason: Constipation Melatonin (Melatonin 3 Mg Tablet) 6 mg PO BEDTIME PRN PRN Reason: Insomnia Methadone HCl (Methadone Hcl 20 Mg/2 Ml Oral.Conc) 100 mg PO DAILY [facility] Last Admin: 05/04/24 08:11 Dose: 100 mg Documented By: DANIE Co-signed By: MONICA Methadone HCl (Methadone Hcl 20 Mg/2 Ml Oral.Conc) 50 mg PO BEDTIME [facility] Last Admin: 05/03/24 22:33 Dose: 50 mg Documented By: MOINCO Co-signed By: ROSEANNE Morphine Sulfate (Morphine Sulfate 2 Mg/Ml Cartridge) 4 mg IVPUSH Q4H PRN; Protocol PRN Reason: Pain, Severe (Pain Scale 7-10) Last Admin: 05/04/24 09:03 Dose: 4 mg Documented By: DANIE Pharmacy Consult (Consult Rx Vancomycin Dosing) 1 each MISCELLANE DAILY PRN PRN Reason: Consult order Polyethylene Glycol (Polyethylene Glycol 3350 17 Gm Powd.Pack) 17 gm PO DAILY PRN PRN Reason: constipation Sodium Chloride (0.9 % Sodium Chloride Flush 3 Ml Syringe) 3 ml IVFLUSH QSHIFT [facility] Last Admin: 05/04/24 08:14 Dose: 3 ml Documented By: DANIE Labs 05/02/24 13:57 05/03/24 12:36 Labs: Laboratory Results - last 24 hr 05/03/24 12:36 Estim Creat Clear Calc 74.5 Estimated GFR > 60 Random Vancomycin 8.8 L Microbiology Microbiology Results: Microbiology 05/01/24 04:23 Blood Culture - Final Blood - Venous Methicillin Res Staph Aureus 05/01/24 04:23 Blood Culture - Final Blood - Venous Methicillin Res Staph Aureus 05/02/24 18:58 Blood Culture - Preliminary Blood - Venous No growth after 24 hours. Assessment and Plan (1) Gram-positive cocci bacteremia: Status: Acute (2) Cocaine abuse: Status: Acute (3) Epidural abscess: Status: Acute Plan Janell Moore is a 33 years old woman with PMHx significant for opiate dependence on methadone, MRSA and IVDU admitted with: Acute Epidural abscess, T10-T11 complicated with Staph Aureus ED provide discussed with neurosurgery service (LICHA Finley) at [facility] who has seen the MRI and discuss the case with neurosurgeon and recommended only IV antibiotics as the patient has no neuro deficits. Repeated blood cultures negative after 24 hours Echo negative for vegetations Continue IV antibiotic therapy with Vancomycin follow sensitivity of Blood cultures ID consult. likely 6 weeks of IV Vancomycin Vancomycin trough To get PICC line and find placement by Tuesday Opiates dependence w IVDU Continue methadone Addiction medicine following Mood disorder. Continue fluoxetine. Constipation likely secondary to opiates. MiraLax daily. Mom p.r.n. DVT prophylaxis: Early ambulation. Code status: Full Patient will need hospitalization overnight for epidural abscess and bacteremia treatment with IV antibiotics pending clearing infection from blood and PICC line placement Quality Stroke Does the patient have a stroke diagnosis?: No VTE Prior VTE?: No VTE Risk Level:: Medical - moderate - high VTE Device Contraindication: N/A - Device Ordered VTE Drug Contraindication: Treatment Not Indicated
[2024-05-04 11:20] VITALS: BP 121/69; PULSE 67; RESP 18; TEMP 37.3; O2SAT 96
[2024-05-04] MEDS: Ibuprofen 600 MG TABLET PO (11:44)
[2024-05-04] MEDS: Acetaminophen 325 MG TABLET 975 MG PO (11:44)
[2024-05-04 12:44] LABS: Creatinine Clr Calc Pharmacy 77.9; Estimated Glomerular Filt Rate > 60
--- NOTE | 2024-05-04 13:02 | MHC.RECOVRN ---
Met with pt to check in and provide support. Pt aware she likely needs fdc IV antibiotics, worried about who will take care of her cats while she is away. Discussed options for pet care. Pt reports pain is not being managed effectively with morphine, RN aware. Pt denies other questions or concerns at this time.
[2024-05-04] MEDS: Ketorolac Tromethamine 30 MG/ML VIAL IVPUSH (13:23)
[2024-05-04] MEDS: Omeprazole 20 MG CAPSULE.DR PO ×2 (13:23→18:30)
--- NOTE | 2024-05-04 13:26 | MHC.CM.PN ---
PT WILL NEED SNF PLACEMENT FOR IV ABX REFERRALS MADE TO [facility], PT ON METHADONE MAINTENANCE WITH N PT SHOULD BE MEDICALLY CLEARED TUESDAY
[2024-05-04 15:50] VITALS: BP 109/62; PULSE 57; RESP 18; TEMP 36.2; O2SAT 97
[2024-05-04 16:59] LABS: Vancomycin Random 10.9 mcg/mL (15-20)
[2024-05-04] MEDS: vancomycin HCL 1,250 MG in 0.9 % Sodium Chloride 250 ML 166.67 MG IV (18:31)
[2024-05-04 19:08] VITALS: BP 117/65; PULSE 54; RESP 18; TEMP 36.3; O2SAT 99
[2024-05-04] MEDS: methADONE HCl 20 MG/2 ML ORAL.CONC 50 MG PO (19:44)
[2024-05-05] VITALS: BP 133/65; PULSE 52; RESP 16; TEMP 36.6; O2SAT 98
[2024-05-05 03:58] VITALS: BP 134/68; PULSE 68; RESP 18; TEMP 36.2; O2SAT 97
[2024-05-05] MEDS: Ketorolac Tromethamine 30 MG/ML VIAL IVPUSH ×2 (04:49→15:23)
[2024-05-05] MEDS: Omeprazole 20 MG CAPSULE.DR PO ×2 (04:50→15:23)
[2024-05-05] MEDS: vancomycin HCL 1,250 MG in 0.9 % Sodium Chloride 250 ML 166.67 MG IV (04:52)
[2024-05-05 07:35] VITALS: BP 127/63; PULSE 56; RESP 16; TEMP 36.4; O2SAT 97
[2024-05-05] MEDS: Gabapentin 400 MG CAPSULE PO ×3 (09:21→21:16)
[2024-05-05] MEDS: FLUoxetine HCl 20 MG CAPSULE 40 MG PO (09:21)
[2024-05-05] MEDS: 0.9 % Sodium Chloride Flush 3 ML SYRINGE IVFLUSH ×3 (09:22→21:20)
[2024-05-05] MEDS: methADONE HCl 20 MG/2 ML ORAL.CONC 100 MG PO (09:22)
[2024-05-05 12:00] VITALS: BP 135/72; PULSE 52; RESP 16; TEMP 37.3; O2SAT 96
--- NOTE | 2024-05-05 12:42 | P.PNIM_ITS ---
Subjective Subjective Date of Service: 05/05/24 Interval History: seen and evaluated this morning no neurological deficit,improving back and RLE pain repeated culture neg after 48 hrs no other events Physical Exam 2 Vital Signs: Vital Signs: Last Vital Signs Temp 97.6 F 05/05/24 07:35 Pulse 56 05/05/24 07:35 Resp 16 05/05/24 07:35 BP 127/63 05/05/24 07:35 Pulse Ox 97 05/05/24 07:35 O2 Del Method Room Air 05/05/24 07:35 BMI result Body Mass Index 21.7 Const: Other: Constitutional : Awake, interactive, not in distress Neck : Normal inspection, Supple Cardiovascular : RRR, no JVP, no lower extremity edema Respiratory : good bilateral air entry, no crackles, wheezes or rhonchi Gastrointestinal: soft, lax, Normal bowel sounds, Non tender Skin : Warm, Dry, multiple injection castillo in upper and lower extremities Neurological : Alert & oriented x3, No focal deficit Objective Data Active Medications Acetaminophen (Acetaminophen 325 Mg Tablet) 975 mg PO Q6H PRN PRN Reason: Pain, Mild (Pain Scale 1-3), fever or headache Last Admin: 05/04/24 11:44 Dose: 975 mg Documented By: DANIE Fluoxetine HCl (Fluoxetine Hcl 20 Mg Capsule) 40 mg PO DAILY [facility] Last Admin: 05/05/24 09:21 Dose: 40 mg Documented By: ANDREW Gabapentin (Gabapentin 400 Mg Capsule) 400 mg PO TID [facility] Last Admin: 05/05/24 09:21 Dose: 400 mg Documented By: ANDREW Vancomycin HCl 1,250 mg/ (Sodium Chloride) 250 mls @ 166.667 mls/hr IV Q12H [facility] Last Infusion: 05/05/24 06:25 Dose: Infused Documented By: BLAIR Ketorolac Tromethamine (Ketorolac Tromethamine 30 Mg/Ml Vial) 30 mg IVPUSH Q6H PRN PRN Reason: Pain, Severe (Pain Scale 7-10) Last Admin: 05/05/24 04:49 Dose: 30 mg Documented By: BLAIR Magnesium Hydroxide (Milk Of Magnesia 30 Ml Oral.Susp) 30 ml PO DAILY PRN PRN Reason: Constipation Melatonin (Melatonin 3 Mg Tablet) 6 mg PO BEDTIME PRN PRN Reason: Insomnia Methadone HCl (Methadone Hcl 20 Mg/2 Ml Oral.Conc) 100 mg PO DAILY [facility] Last Admin: 05/05/24 09:22 Dose: 100 mg Documented By: ANDREW Co-signed By: LUDA Methadone HCl (Methadone Hcl 20 Mg/2 Ml Oral.Conc) 50 mg PO BEDTIME [facility] Last Admin: 05/04/24 19:44 Dose: 50 mg Documented By: BLAIR Co-signed By: MICHAEL Morphine Sulfate (Morphine Sulfate 2 Mg/Ml Cartridge) 4 mg IVPUSH Q4H PRN; Protocol PRN Reason: Pain, Moderate(Pain Scale 4-6) Last Admin: 05/04/24 22:44 Dose: 4 mg Documented By: BLAIR Omeprazole (Omeprazole 20 Mg Capsule.Dr) 20 mg PO BID@0630,1630 [facility] Last Admin: 05/05/24 04:50 Dose: 20 mg Documented By: BLAIR Pharmacy Consult (Consult Rx Vancomycin Dosing) 1 each MISCELLANE DAILY PRN PRN Reason: Consult order Polyethylene Glycol (Polyethylene Glycol 3350 17 Gm Powd.Pack) 17 gm PO DAILY PRN PRN Reason: constipation Sodium Chloride (0.9 % Sodium Chloride Flush 3 Ml Syringe) 3 ml IVFLUSH QSHIFT [facility] Last Admin: 05/05/24 09:22 Dose: 3 ml Documented By: ANDREW Labs 05/02/24 13:57 05/04/24 12:01 Labs: Laboratory Results - last 24 hr 05/04/24 05/04/24 12:01 16:25 Estim Creat Clear Calc 77.9 Estimated GFR > 60 Random Vancomycin 10.9 L Microbiology Microbiology Results: Microbiology 05/02/24 18:58 Blood Culture - Preliminary Blood - Venous No growth after 48 hours. 05/02/24 11:31 Blood Culture - Final Blood - Venous 05/01/24 04:23 Blood Culture - Final Blood - Venous Methicillin Res Staph Aureus 05/01/24 04:23 Blood Culture - Final Blood - Venous Methicillin Res Staph Aureus Assessment and Plan (1) MRSA bacteremia: Status: Acute (2) Epidural abscess: Status: Acute (3) Opioid use disorder: Status: Acute Plan Janell Moore is a 33 years old woman with PMHx significant for opiate dependence on methadone, MRSA and IVDU admitted with: Acute Epidural abscess, T10-T11 complicated with Staph Aureus ED provide discussed with neurosurgery service (LICHA Finley) at [facility] who has seen the MRI and discuss the case with neurosurgeon and recommended only IV antibiotics as the patient has no neuro deficits. Repeated blood cultures negative after 24 hours Echo negative for vegetations Continue IV antibiotic therapy with Vancomycin follow sensitivity of Blood cultures ID consult. likely 6 weeks of IV Vancomycin Vancomycin trough To get PICC line and find placement by Tuesday Opiates dependence w IVDU Continue methadone Addiction medicine following Mood disorder. Continue fluoxetine. Constipation likely secondary to opiates. MiraLax daily. Mom p.r.n. DVT prophylaxis: Early ambulation. Code status: Full Patient will need hospitalization overnight for epidural abscess and bacteremia treatment with IV antibiotics pending clearing infection from blood and PICC line placement Quality Stroke Does the patient have a stroke diagnosis?: No VTE Prior VTE?: No VTE Risk Level:: Medical - moderate - high VTE Device Contraindication: N/A - Device Ordered VTE Drug Contraindication: Treatment Not Indicated
[2024-05-05 15:05] VITALS: BP 130/79; PULSE 70; RESP 18; TEMP 36.2; O2SAT 99
[2024-05-05 16:36] LABS: Creatinine Clr Calc Pharmacy 81.7; Estimated Glomerular Filt Rate > 60
[2024-05-05 16:36] LABS: Vancomycin Random 17.7 mcg/mL (15-20)
[2024-05-05] MEDS: vancomycin HCL 1,000 MG in 0.9 % Sodium Chloride 250 ML 270 MG IV (17:37)
[2024-05-05 19:02] VITALS: BP 138/85; PULSE 106; RESP 18; TEMP 37.3; O2SAT 99
[2024-05-05] MEDS: methADONE HCl 20 MG/2 ML ORAL.CONC 50 MG PO (21:16)
[2024-05-05] MEDS: Acetaminophen 325 MG TABLET 975 MG PO (21:21)
[2024-05-06 04:00] VITALS: BP 122/59; PULSE 52; RESP 16; TEMP 36.1; O2SAT 95
[2024-05-06] MEDS: vancomycin HCL 1,000 MG in 0.9 % Sodium Chloride 250 ML 270 MG IV ×2 (06:15→18:24)
[2024-05-06] MEDS: Omeprazole 20 MG CAPSULE.DR PO ×2 (06:15→15:41)
[2024-05-06 07:34] VITALS: BP 101/54; PULSE 54; RESP 16; TEMP 36.8; O2SAT 98
[2024-05-06] MEDS: 0.9 % Sodium Chloride Flush 3 ML SYRINGE IVFLUSH ×3 (08:50→19:46)
[2024-05-06] MEDS: methADONE HCl 20 MG/2 ML ORAL.CONC 100 MG PO (08:51)
[2024-05-06] MEDS: FLUoxetine HCl 20 MG CAPSULE 40 MG PO (08:51)
[2024-05-06] MEDS: Gabapentin 400 MG CAPSULE PO ×3 (08:51→19:38)
[2024-05-06] MEDS: Morphine Sulfate 2 MG/ML CARTRIDGE 4 MG IVPUSH (08:53)
--- NOTE | 2024-05-06 12:29 | P.PNIM_ITS ---
Subjective Subjective Date of Service: 05/06/24 Interval History: seen and evaluated this morning no neurological deficit,improving back and RLE pain repeated culture neg after 48 hrs no other events Physical Exam 2 Vital Signs: Vital Signs: Last Vital Signs Temp 98.3 F 05/06/24 07:34 Pulse 54 05/06/24 07:34 Resp 16 05/06/24 07:34 BP 101/54 L 05/06/24 07:34 Pulse Ox 98 05/06/24 07:34 O2 Del Method Room Air 05/06/24 07:34 BMI result Body Mass Index 21.7 Const: Other: Constitutional : Awake, interactive, not in distress Neck : Normal inspection, Supple Cardiovascular : RRR, no JVP, no lower extremity edema Respiratory : good bilateral air entry, no crackles, wheezes or rhonchi Gastrointestinal: soft, lax, Normal bowel sounds, Non tender Skin : Warm, Dry, multiple injection castillo in upper and lower extremities Neurological : Alert & oriented x3, No focal deficit Objective Data Active Medications Acetaminophen (Acetaminophen 325 Mg Tablet) 975 mg PO Q6H PRN PRN Reason: Pain, Mild (Pain Scale 1-3), fever or headache Last Admin: 05/05/24 21:21 Dose: 975 mg Documented By: BLAIR Fluoxetine HCl (Fluoxetine Hcl 20 Mg Capsule) 40 mg PO DAILY [facility] B[facility]S AT [facility] Last Admin: 05/06/24 08:51 Dose: 40 mg Documented By: YULIET Gabapentin (Gabapentin 400 Mg Capsule) 400 mg PO TID [facility] BEDS AT [facility] Last Admin: 05/06/24 08:51 Dose: 400 mg Documented By: YULIET Vancomycin HCl 1,000 mg/ (Sodium Chloride) 270 mls @ 270 mls/hr IV Q12H [facility] 234 BEDS AT [facility] Last Infusion: 05/06/24 07:28 Dose: Infused Documented By: YULIET Ketorolac Tromethamine (Ketorolac Tromethamine 30 Mg/Ml Vial) 30 mg IVPUSH Q6H PRN PRN Reason: Pain, Severe (Pain Scale 7-10) Last Admin: 05/05/24 15:23 Dose: 30 mg Documented By: ANDREW Magnesium Hydroxide (Milk Of Magnesia 30 Ml Oral.Susp) 30 ml PO DAILY PRN PRN Reason: Constipation Melatonin (Melatonin 3 Mg Tablet) 6 mg PO BEDTIME PRN PRN Reason: Insomnia Methadone HCl (Methadone Hcl 20 Mg/2 Ml Oral.Conc) 100 mg PO DAILY [facility] BEDS AT [facility] Last Admin: 05/06/24 08:51 Dose: 100 mg Documented By: YULIET Co-signed By: LEON Methadone HCl (Methadone Hcl 20 Mg/2 Ml Oral.Conc) 50 mg PO BEDTIME [facility] 234 BEDS AT [facility] Last Admin: 05/05/24 21:16 Dose: 50 mg Documented By: BLAIR Co-signed By: ELVIN Morphine Sulfate (Morphine Sulfate 2 Mg/Ml Cartridge) 4 mg IVPUSH Q4H PRN; Protocol PRN Reason: Pain, Moderate(Pain Scale 4-6) Last Admin: 05/06/24 08:53 Dose: 4 mg Documented By: YULIET Omeprazole (Omeprazole 20 Mg Capsule.Dr) 20 mg PO BID@0630,1630 [facility] 234 BEDS AT [facility] Last Admin: 05/06/24 06:15 Dose: 20 mg Documented By: BLAIR Pharmacy Consult (Consult Rx Vancomycin Dosing) 1 each MISCELLANE DAILY PRN PRN Reason: Consult order Polyethylene Glycol (Polyethylene Glycol 3350 17 Gm Powd.Pack) 17 gm PO DAILY PRN PRN Reason: constipation Sodium Chloride (0.9 % Sodium Chloride Flush 3 Ml Syringe) 3 ml IVFLUSH QSHIFT [facility] 234 BEDS AT [facility] Last Admin: 05/06/24 08:50 Dose: 3 ml Documented By: YULIET Labs 05/02/24 13:57 05/05/24 16:03 Labs: Laboratory Results - last 24 hr 05/05/24 05/05/24 16:02 16:03 Estim Creat Clear Calc 81.7 Estimated GFR > 60 Random Vancomycin 17.7 Microbiology Microbiology Results: Microbiology 05/02/24 18:58 Blood Culture - Preliminary Blood - Venous No growth after 48 hours. 05/02/24 11:31 Blood Culture - Final Blood - Venous Assessment and Plan (1) MRSA bacteremia: Status: Acute (2) Gram-positive cocci bacteremia: Status: Acute (3) Epidural abscess: Status: Acute Plan Janell Moore is a 33 years old woman with PMHx significant for opiate dependence on methadone, MRSA and IVDU admitted with: Acute Epidural abscess, T10-T11 complicated with Staph Aureus ED provide discussed with neurosurgery service (LICHA Finley) at [facility] who has seen the MRI and discuss the case with neurosurgeon and recommended only IV antibiotics as the patient has no neuro deficits. Repeated blood cultures negative after 24 hours Echo negative for vegetations Continue IV antibiotic therapy with Vancomycin follow sensitivity of Blood cultures ID consult. likely 6 weeks of IV Vancomycin Vancomycin trough To get PICC line and find placement by Tuesday Opiates dependence w IVDU Continue methadone Addiction medicine following Mood disorder. Continue fluoxetine. Constipation likely secondary to opiates. MiraLax daily. Mom p.r.n. DVT prophylaxis: Early ambulation. Code status: Full Patient will need hospitalization overnight for epidural abscess and bacteremia treatment with IV antibiotics pending clearing infection from blood and PICC line placement Quality Stroke Does the patient have a stroke diagnosis?: No VTE Prior VTE?: No VTE Risk Level:: Medical - moderate - high VTE Device Contraindication: N/A - Device Ordered VTE Drug Contraindication: Treatment Not Indicated
[2024-05-06] MEDS: Ketorolac Tromethamine 30 MG/ML VIAL IVPUSH ×2 (12:41→19:38)
[2024-05-06 15:11] VITALS: BP 118/56; PULSE 51; RESP 18; TEMP 36.5; O2SAT 98
[2024-05-06 16:49] LABS: Vancomycin Random 16.1 mcg/mL (15-20)
[2024-05-06 16:50] LABS: Creatinine Clr Calc Pharmacy 70.6; Estimated Glomerular Filt Rate > 60
[2024-05-06] MEDS: methADONE HCl 20 MG/2 ML ORAL.CONC 50 MG PO (19:38)
[2024-05-06 19:46] VITALS: BP 131/83; PULSE 54; RESP 18; TEMP 36.7; O2SAT 99
[2024-05-07 03:58] VITALS: BP 123/62; PULSE 50; RESP 16; TEMP 36.9; O2SAT 96
[2024-05-07 04:18] LABS: HBS Num1 7.58 mIU/mL (0-7.99); HBc Num1 0.14 S/CO (0.00-0.79); HBsAGNum1 0.43 S/CO (0.00-0.99); HIV AB/AG Nonreactive (Nonreactive); HIV Num 1 0.07 S/CO (0.00-0.99); Hepatitis A Antibody IgM 0.34 Index (0-0.79); Hepatitis B Core Antibody Nonreactive (Nonreactive); Hepatitis B Surface Antigen Negative (Negative); ~HepC Num1 12.95 S/CO (0.00-0.79); ~Hepatitis A Antibody IgM Nonreactive (Nonreactive); ~Hepatitis B Surface Antibody NONREACTIVE (Nonreactive); ~Hepatitis C Antibody Reactive (Nonreactive)
[2024-05-07] MEDS: Omeprazole 20 MG CAPSULE.DR PO ×2 (05:39→14:47)
[2024-05-07] MEDS: vancomycin HCL 1,000 MG in 0.9 % Sodium Chloride 250 ML 270 MG IV ×2 (05:40→18:37)
[2024-05-07 07:18] VITALS: BP 119/65; PULSE 52; RESP 16; TEMP 36.7; O2SAT 97
[2024-05-07] MEDS: Gabapentin 400 MG CAPSULE PO ×3 (08:45→20:21)
[2024-05-07] MEDS: 0.9 % Sodium Chloride Flush 3 ML SYRINGE IVFLUSH ×3 (08:45→20:22)
[2024-05-07] MEDS: FLUoxetine HCl 20 MG CAPSULE 40 MG PO (08:45)
[2024-05-07] MEDS: methADONE HCl 20 MG/2 ML ORAL.CONC 100 MG PO (08:46)
--- NOTE | 2024-05-07 10:51 | P.PNIM_ITS ---
Subjective Subjective Date of Service: 05/07/24 Interval History: seen and evaluated this morning no neurological deficit,improving back pain refusing labs as she has difficult stick no other events Review of Systems Review of Systems: Yes all other systems are reviewed and are negative Physical Exam 2 Vital Signs: Vital Signs: Last Vital Signs Temp 98.0 F 05/07/24 07:18 Pulse 52 05/07/24 07:18 Resp 16 05/07/24 07:18 BP 119/65 05/07/24 07:18 Pulse Ox 97 05/07/24 07:18 O2 Del Method Room Air 05/07/24 07:18 BMI result Body Mass Index 21.7 Const: Other: Constitutional : Awake, interactive, not in distress Neck : Normal inspection, Supple Cardiovascular : RRR, no JVP, no lower extremity edema Respiratory : good bilateral air entry, no crackles, wheezes or rhonchi Gastrointestinal: soft, lax, Normal bowel sounds, Non tender Skin : Warm, Dry, multiple injection castillo in upper and lower extremities Neurological : Alert & oriented x3, No focal deficit Objective Data Active Medications Acetaminophen (Acetaminophen 325 Mg Tablet) 975 mg PO Q6H PRN PRN Reason: Pain, Mild (Pain Scale 1-3), fever or headache Last Admin: 05/05/24 21:21 Dose: 975 mg Documented By: BLAIR Fluoxetine HCl (Fluoxetine Hcl 20 Mg Capsule) 40 mg PO DAILY [facility] Last Admin: 05/07/24 08:45 Dose: 40 mg Documented By: YULIET Gabapentin (Gabapentin 400 Mg Capsule) 400 mg PO TID [facility] Last Admin: 05/07/24 08:45 Dose: 400 mg Documented By: YULIET Vancomycin HCl 1,000 mg/ (Sodium Chloride) 270 mls @ 270 mls/hr IV Q12H [facility] Last Infusion: 05/07/24 07:01 Dose: Infused Documented By: YULIET Ketorolac Tromethamine (Ketorolac Tromethamine 30 Mg/Ml Vial) 30 mg IVPUSH Q6H PRN PRN Reason: Pain, Severe (Pain Scale 7-10) Last Admin: 05/06/24 19:38 Dose: 30 mg Documented By: BLAIR Magnesium Hydroxide (Milk Of Magnesia 30 Ml Oral.Susp) 30 ml PO DAILY PRN PRN Reason: Constipation Melatonin (Melatonin 3 Mg Tablet) 6 mg PO BEDTIME PRN PRN Reason: Insomnia Methadone HCl (Methadone Hcl 20 Mg/2 Ml Oral.Conc) 100 mg PO DAILY [facility] Last Admin: 05/07/24 08:46 Dose: 100 mg Documented By: YULIET Co-signed By: MONICA Methadone HCl (Methadone Hcl 20 Mg/2 Ml Oral.Conc) 50 mg PO BEDTIME [facility] Last Admin: 05/06/24 19:38 Dose: 50 mg Documented By: BLAIR Co-signed By: REBECA Morphine Sulfate (Morphine Sulfate 2 Mg/Ml Cartridge) 4 mg IVPUSH Q4H PRN; Protocol PRN Reason: Pain, Moderate(Pain Scale 4-6) Last Admin: 05/06/24 08:53 Dose: 4 mg Documented By: YULIET Omeprazole (Omeprazole 20 Mg Capsule.Dr) 20 mg PO BID@0630,1630 [facility] Last Admin: 05/07/24 05:39 Dose: 20 mg Documented By: BLAIR Pharmacy Consult (Consult Rx Vancomycin Dosing) 1 each MISCELLANE DAILY PRN PRN Reason: Consult order Polyethylene Glycol (Polyethylene Glycol 3350 17 Gm Powd.Pack) 17 gm PO DAILY PRN PRN Reason: constipation Sodium Chloride (0.9 % Sodium Chloride Flush 3 Ml Syringe) 3 ml IVFLUSH QSHIFT [facility] Last Admin: 05/07/24 08:45 Dose: 3 ml Documented By: YULIET Labs 05/02/24 13:57 05/06/24 16:10 Labs: Laboratory Results - last 24 hr 05/04/24 05/06/24 05/06/24 16:25 16:07 16:10 Estim Creat Clear Calc 70.6 Estimated GFR > 60 Random Vancomycin 16.1 Hepatitis A IgM Ab Nonreactive Hep Bs Antigen Negative Hep Bs Antibody NONREACTIVE Hep B Core Total Ab Nonreactive Hepatitis C Ab (EIA) Reactive H HIV 1&2 Ab/P24 Ag 4thGn Nonreactive Assessment and Plan (1) MRSA bacteremia: Status: Acute (2) Gram-positive cocci bacteremia: Status: Acute (3) Cocaine abuse: Status: Acute (4) Epidural abscess: Status: Acute (5) Opioid use disorder: Status: Acute Plan Janell Moore is a 33 years old woman with PMHx significant for opiate dependence on methadone, MRSA and IVDU admitted with: Acute Epidural abscess, T10-T11 complicated with MRSA bacteremia ED provide discussed with neurosurgery service (LICHA Finley) at [facility] who has seen the MRI and discuss the case with neurosurgeon and recommended only IV antibiotics as the patient has no neuro deficits. Repeated blood cultures negative after 24 hours Echo negative for vegetations Continue IV antibiotic therapy with Vancomycin ID consult. likely 6 weeks of IV Vancomycin Vancomycin trough To get PICC line and find placement Opiates dependence w IVDU Continue methadone Addiction medicine following Mood disorder. Continue fluoxetine. Constipation likely secondary to opiates. MiraLax daily. Mom p.r.n. DVT prophylaxis: Early ambulation. Code status: Full Patient will need hospitalization overnight for epidural abscess and bacteremia treatment with IV antibiotics pending PICC line placement and safe discharge plan Quality Stroke Does the patient have a stroke diagnosis?: No VTE Prior VTE?: No VTE Risk Level:: Medical - moderate - high VTE Device Contraindication: N/A - Device Ordered VTE Drug Contraindication: Treatment Not Indicated
--- NOTE | 2024-05-07 11:47 | MHC.CM.PN ---
[facility] and [facility] are offering beds. Guest dosing has been initiated with Bubba from [facility]. He is the patients methadone educational technician. Clinical info has been sent to [employer] the guest dose dispensary. The liason has been left a VM as well as a message via [employer]. The Patient is ready to discharge. A request to start insurance authorization has been made.
[2024-05-07] MEDS: Ketorolac Tromethamine 30 MG/ML VIAL IVPUSH (14:47)
[2024-05-07 14:56] VITALS: BP 113/87; PULSE 73; RESP 15; TEMP 37; O2SAT 98
[2024-05-07 16:59] LABS: Vancomycin Random 17.2 mcg/mL (15-20)
[2024-05-07 17:02] LABS: Creatinine Clr Calc Pharmacy 84.7; Estimated Glomerular Filt Rate > 60
[2024-05-07 18:58] VITALS: BP 150/74; PULSE 61; RESP 16; TEMP 36.1; O2SAT 99
[2024-05-07] MEDS: methADONE HCl 20 MG/2 ML ORAL.CONC 50 MG PO (20:19)
[2024-05-08 04:00] VITALS: BP 104/52; PULSE 58; RESP 16; TEMP 36; O2SAT 98
[2024-05-08] MEDS: vancomycin HCL 1,000 MG in 0.9 % Sodium Chloride 250 ML 270 MG IV ×2 (05:33→15:51)
[2024-05-08] MEDS: Omeprazole 20 MG CAPSULE.DR PO ×2 (05:34→15:52)
[2024-05-08] MEDS: Gabapentin 400 MG CAPSULE PO ×2 (07:38→15:51)
[2024-05-08] MEDS: methADONE HCl 20 MG/2 ML ORAL.CONC 100 MG PO (07:38)
[2024-05-08] MEDS: FLUoxetine HCl 20 MG CAPSULE 40 MG PO (07:38)
[2024-05-08] MEDS: 0.9 % Sodium Chloride Flush 3 ML SYRINGE IVFLUSH (07:39)
[2024-05-08 07:42] VITALS: BP 111/57; PULSE 53; RESP 16; TEMP 36.7; O2SAT 97
--- NOTE | 2024-05-08 12:28 | P.PICC_ITS ---
PICC Line Insertion NPICC Diagnosis: Epidural abscess with MRSA Indication: longterm antibiotics Pertinent Labs: Reviewed Technique: Following informed consent including risks, benefits and alternatives and using sterile technique including cap and mask, sterile gown, glove and drape, the right arm was prepped and draped in the usual sterile fashion of full barrier technique with CHG. Following completion of Ralph Protocol the skin and soft tissues were anesthetized with 1% Lidocaine plain. Using ultrasound guidance, The right brachial vein access was obtained in a single attempt by this RN. Over an 0.018 wire through peel-away sheath, a single lumen 4 [place] PASV PICC line was positioned. Catheter length is 39 cm internal length, the ex ternal length is at the 0 external jeff, for a total trimmed length of 39 cm. The procedure was performed in S272. Tip verification was performed by Miguel Vasquez with Sherlock 3CG. Tip located in SVC. Ultrasound was used to document vein patency and for needle entry. A formal ultrasound picture and cardiac rhythm strip was recorded. Vascular Acquisition Advisor has released the line for use and it is currently dressed with a StatLock, Tegaderm, and CHG disc. Verification has been performed for blood return and line patency. Arm Circumference: 26 cm Equipment: [employer] PowerPICC SOLO Catheter with Sherlock 3 CG Tip Catheter Type: 4 [place] single lumen PASV PICC Lot #: [id number]
--- NOTE | 2024-05-08 14:57 | MHC.CM.PN ---
Per MD , patient medically cleared for dc to SNF for IV abx. PICC in place, [facility]. BLS transport scheduled for 5pm. , RN and patient aware.
--- NOTE | 2024-05-08 15:01 | P.DS_ITS ---
DS: Providers Provider Date of Service: 05/08/24 Date of admission: 05/01/24 23:37 Date of discharge: 05/08/24 Primary care physician: Rosa Elena Morel MD Consults: 05/02/24 02:34 Addiction Medicine Routine Consulting Provider: Addiction Covering Reason for consultation: IVDU: Cocaine, fentanyl, on methadone. Has provider been notified: No 05/02/24 02:38 Consult to Infectious Diseases Routine Consulting Provider: [facility] Reason for consultation: Epidural access, bacteremia, IVDU Has provider been notified: No DS: Diagnosis Discharge Diagnosis (1) MRSA bacteremia: Status: Acute (2) Gram-positive cocci bacteremia: Status: Acute (3) Cocaine abuse: Status: Acute (4) Epidural abscess: Status: Acute (5) Opioid use disorder: Status: Acute DS: Summary Hospital Course Hospital Course: Admission note HPI Janell Moore is a very pleasant 33 years old woman with past medical history significant for opiate dependence on methadone, MRSA and ongoing IVDU presents t o the emergency department complaining of 2 weeks history of intermittent left mid back pain. It has been getting worse over the last 3 days. She has been experiencing nausea, sweating and poor appetite. She denied any event of vomiting, fevers or chills. She also denied any difficulty with urination. Patient has been also experiencing right groin pain associated with pain running in the inner aspect of her right knee which she attributes to phlebitis. Last bowel movement was a week ago. She has history of chronic constipation. She denied numbness or weakness to the lower extremities, back or abdomen. Last use of IV drugs was 2 days ago. Patient denies history of epidural abscesses or endocarditis. In the ED, she was found to have normal vital signs (no tachycardia, hypotension or fever). Blood workup showed no leukocytosis or lactic acidosis. Hemoglobin is 10.2 and platelets are 214. There is minor hyponatremia 133. Renal and liver function are normal. CRP is 23.89. test is negative. Urinalysis is normal. Urine drug screen is positive for opiates, methadone, fentanyl and cocaine. Viral testing is negative for influenza, RSV and COVID- 19. ECG showed normal sinus rhythm and no ischemic changes. Blood culture -1 set growing Gram-positive cocci in clusters. 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 Hospital course The patient was admitted for evaluation of back pain. Found to have an evidence of Acute Epidural abscess, T10-T11 complicated with MRSA bacteremia as ED provide discussed with neurosurgery service (LICHA Finley) at [facility] who has seen the MRI and discuss the case with neurosurgeon and recommended only IV antibiotics as the patient has no neuro deficits. The patient was started on IV antibiotics of Vancomycin and Zosyn. Narrowed down to Vancomycin only as cultures grew MRSA. Repeated blood cultures from 05/02 negative. Seen by ID who recommended 6 weeks of IV Vancomycin as Echo negative for vegetations. PICC line placed and will discharge to SNF to finish treatment. She will need 36 more days of antibiotics. To finish by 06/13/2024. Found to have +heptatis C. to follow with PCP for further treatment. For Opiates dependence w IVDU she was resumed on her home dose methadone of 100 mg in morning and 50 mg bedtime. followed by Addiction medicine team. Discharge plan Continue Vancomycin for 36 more days Avoid drugs Follow up with PCP for Hepatitis C treatment Continue Methadone as prescribed The patient will likely need less than 30 days of SNF stay. Time Attestation Discharge Coordination Time (in mins): 43 Quality: Safe Use of Opioids Does Pt have an Active Cancer Diagnosis on the Problem List?: No Quality: Stroke Does the patient have a stroke diagnosis?: No Physical Exam Vital Signs: Vital Signs: Last Vital Signs Temp 98.0 F 05/08/24 07:42 Pulse 53 05/08/24 07:42 Resp 16 05/08/24 07:42 BP 111/57 L 05/08/24 07:42 Pulse Ox 97 05/08/24 07:42 O2 Del Method Room Air 05/08/24 07:42 BMI result Body Mass Index 21.7 Const: Other: Constitutional : Awake, interactive, not in distress Neck : Normal inspection, Supple Cardiovascular : RRR, no JVP, no lower extremity edema Respiratory : good bilateral air entry, no crackles, wheezes or rhonchi Gastrointestinal: soft, lax, Normal bowel sounds, Non tender Skin : Warm, Dry, multiple injection castillo in upper and lower extremities Neurological : Alert & oriented x3, No focal deficit DS: Data Data Completed and Pending Labs on day of discharge: Laboratory Results - last 24 hr 05/07/24 16:19 Creatinine 0.80 Estim Creat Clear Calc 84.7 Estimated GFR > 60 Random Vancomycin 17.2 Imaging Chest x-ray: Radiologist's impression: ITS Impressions Abdomen/Pelvis CT 05/01/24 06:00 IMPRESSION: 1. No acute abnormality within the abdomen or pelvis. 2. Moderate to large stool burden overall. 3. Prominent right external iliac node measuring up to 1.1 cm in short axis, nonspecific. There are additional bilateral pelvic wall lymph nodes that are prominent though not pathologically enlarged. Fleischner guidelines were followed. Electronically signed by: Ladi Donnelly DO 05/01/2024 09:14 AM EST RP Lumbar Spine MRI 05/01/24 11:50 IMPRESSION: Within the limitations of the study, -Partially imaged T1 hypointense, T2/STIR hyperintense lesion involving the dorsal epidural space at the level of T10-11. Recommend further evaluation with MRI of the thoracic spine with and without contrast. -Mild degenerative changes at L4-L5 and L5-S1 without significant spinal canal or neural foraminal narrowing. 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 There is resultant mass effect on the cord with anterior and rightward displacement of the thecal sac. Differential considerations include meningioma versus nerve sheath tumor versus focal granulomatous disease versus metastatic disease. Electronically signed by: Prosper Otero MD 05/01/2024 08:25 PM EST RP Discharge Plan Discharge Anticipated Discharge Date/Time: 05/08/24 14:47 Patient Disposition: Home, Self-Care Discharge Diagnosis: EPidural abscess MRSA bacteremia [facility]errals: [facility] [Outside] - 1 Day Rosa Elena Morel MD [Primary Care Provider] - 1 Week Discharge Medications: New vancomycin 1,000 mg recon soln 1 g IV Q12H 36 Days Qty: 72 0RF omeprazole 20 mg Capsule,Delayed Release(Dr/Ec) 20 mg PO DAILY Qty: 90 0RF Continued methadone 10 mg/mL Concentrate 100 mg PO DAILY ibuprofen 600 mg Tablet 600 mg PO Q8H PRN (Reason: Pain (Scale Score 4-6)) gabapentin 400 mg Capsule 400 mg PO TID fluoxetine 40 mg Capsule 40 mg PO DAILY polyethylene glycol 3350 [Miralax] 17 gram/dose Powder 17 g PO DAILY PRN (Reason: Constipation) methadone 10 mg/mL Concentrate 50 mg PO BEDTIME Discharge Orders: Discharge Order (Routine); Ordered 05/08/24 Ordered By: Edmar Lim Diet: Advance to usual diet Activity on Discharge: As tolerated Stand Alone Forms: Patient Portal Discharge page Print Language: Sinhala Care Plan Goals: Continue Vancomycin for 36 more days Avoid drugs Follow up with PCP for Hepatitis C treatment Continue Methadone as prescribed Health Concerns: Epidural abscess MRSA bacteremia Plan of Treatment: IV antibiotics Assessment: as above
[2024-05-08] MEDS: 0.9 % Sodium Chloride Flush 10 ML SYRINGE 5 ML IVFLUSH (15:52)
[2024-05-08 15:55] VITALS: BP 136/58; PULSE 87; RESP 16; TEMP 36.3; O2SAT 97
[2024-05-08 16:26] LABS: Estimated Glomerular Filt Rate > 60
[2024-05-08 16:39] LABS: Vancomycin Random 18.5 mcg/mL (15-20)
== END 2024-05-08 18:56 | disposition home or self-care (01) | DRG 49 ==
LOC: HO.ED 21:35 → HO.EDOVER 23:47 → HO.S3 05-02 19:05
PROVIDERS: Emergency Medicine; Admitting Provider Internal Medicine; Emergency Provider Internal Medicine; PCP Internal Medicine; Visit Provider Student in an Organized Health Care Education/Training Program
DX: G06.2 Extradural and subdural abscess, unspecified (principal); R78.81 Bacteremia; B95.62 Methicillin resistant Staphylococcus aureus infection as the cause of diseases classified elsewhere; F11.20 Opioid dependence, uncomplicated; F39 Unspecified mood [affective] disorder; K59.03 Drug induced constipation; F14.10 Cocaine abuse, uncomplicated; T40.3X5A Adverse effect of methadone, initial encounter; Z20.822 Contact with and (suspected) exposure to COVID-19; Z79.899 Other long term (current) drug therapy
CPT/HCPCS: 0241U; 36415; 36573; 72157; 72158; 74177; 80048; 80053; 80076; 80202; 80307; 81003; 82565; 83605; 83690; 83735; 84702; 85025; 85652; 86140; 86704; 86706; 86709; 86803; 87040; 87077; 87147; 87186; 87205; 87340; 87389; 93005; 93306; 99285; A9585; C1751; J0696; J1171; J1885; J2270; J3370; J3371; Q9967; S9485

== ENCOUNTER → 2024-05-01 03:39 | Outpatient (BNV) | payer OTHER, SELFPAY | PROVIDERS: Emergency Provider Internal Medicine; PCP Internal Medicine; Visit Provider Internal Medicine | DX: R94.31 Abnormal electrocardiogram [ECG] [EKG] (principal); M54.50 Low back pain, unspecified | CPT/HCPCS: 93010 ==

== ENCOUNTER 2024-05-01 23:37 | Outpatient (BNV) | payer OTHER, SELFPAY | END 2024-05-02 07:00 | PROVIDERS: Admitting Provider Internal Medicine; Emergency Provider Internal Medicine; PCP Internal Medicine; Visit Provider Internal Medicine | DX: I36.1 Nonrheumatic tricuspid (valve) insufficiency (principal) | CPT/HCPCS: 93306 ==

== ENCOUNTER → 2024-05-01 23:37 | Outpatient (BNV) | payer OTHER, SELFPAY | PROVIDERS: Admitting Provider Internal Medicine; Emergency Provider Internal Medicine; PCP Internal Medicine; Visit Provider Internal Medicine | DX: R78.81 Bacteremia (principal); G06.2 Extradural and subdural abscess, unspecified; F11.90 Opioid use, unspecified, uncomplicated | CPT/HCPCS: 99222 ==

== ENCOUNTER → 2024-05-01 23:37 | Outpatient (BNV) | payer OTHER, SELFPAY | PROVIDERS: Admitting Provider Internal Medicine; Emergency Provider Internal Medicine; PCP Internal Medicine; Visit Provider Internal Medicine | DX: R78.81 Bacteremia (principal); B95.62 Methicillin resistant Staphylococcus aureus infection as the cause of diseases classified elsewhere; G06.2 Extradural and subdural abscess, unspecified; F11.90 Opioid use, unspecified, uncomplicated | CPT/HCPCS: 99222; 99232; 99239; 99499 ==

== ENCOUNTER → 2024-05-01 23:37 | Outpatient (BNV) | payer OTHER, SELFPAY | PROVIDERS: Admitting Provider Internal Medicine; Emergency Provider Internal Medicine; PCP Internal Medicine; Visit Provider Nurse Practitioner Psychiatric/Mental Health | DX: F11.90 Opioid use, unspecified, uncomplicated (principal) | CPT/HCPCS: 99232 ==

== ENCOUNTER 2024-05-14 13:48 | Outpatient (AMB) | payer OTHER, SELFPAY ==
--- NOTE | 2024-05-14 13:49 | A.OFFVIS_ITS ---
Vital Signs 05/14/24 13:50 Height 5 ft 4 in Weight 128 lb BMI 22.0 Pulse 63 Pulse Source Pulse Oximeter Temp 98.8 F Temp Source Oral Pulse Oximetry (%) 98 Intake Visit Reasons: [facility] reff Epidural access, bacteremia, Allergies No Known Allergies [No Known Allergies*] Allergy (Verified 05/14/24 14:00) HPI HPI [facility] reff Epidural access, bacteremia,: Details: She is finishing treatment for epidural abscess. She has no complaints. [facility] Medical History Cocaine abuse Opioid use disorder Injection of illicit drug within last 12 months Opiate dependence MRSA (methicillin resistant staph aureus) culture positive Social History Household Members: Family Housing: House Do you presently have visiting nurse or other home services: No Alcohol intake: never Patient Tobacco Use Status: Never used Tobacco Tobacco use type: Cigarette Cigarettes Per Day: 2 Substance Use Type: Crack/Cocaine, Heroin and Opiates service: No Review of Systems Const All systems reviewed & are unremarkable except as noted in HPI and below Physical Exam Vital Signs: Last Vital Signs Temp 98.8 F 05/14/24 13:50 Pulse 63 05/14/24 13:50 Pulse Ox 98 05/14/24 13:50 BMI result Body Mass Index 22.0 Const General: cooperative Orientation/consciousness: patient oriented x3 HEENT Head: Yes normal to inspection Face and sinus: Yes normal facial exam Mouth: Normal oral and palatal mucosa present Teeth and gingiva: dentition normal Eyes General: appearance normal, both eyes and all related structures Pupils: Equal, round and reactive pupils present Resp Effort & Inspection: normal respiratory effort Cardio Rate: regular rate Rhythm: regular rhythm GI Palpation (GI): Soft to palpation and nontender General: Yes no CVA tenderness Back/Spine/Pelvis Back: no CVA tenderness Skin General skin exam: no rashes or lesions noted Neuro General: patient oriented x3 and moves all extremities Cranial nerves: Yes Equal, round and reactive pupils present Extrem General: Yes normal to inspection Psych Appearance: grossly normal Assessment & Plan Assessment & Plan (1) Epidural abscess: Code(s): G06.2 - Extradural and subdural abscess, unspecified Category: Medical Plan Epidural abscess She is doing better Follow as needed. Coding Level of Care Code Est Pt Level 3 (80934) Diagnoses Epidural abscess G06.2
[2024-05-14 13:50] VITALS: PULSE 63; TEMP 37.1; O2SAT 98; BMI 22.0
== END 2024-05-14 14:29 | disposition home or self-care (01) ==
PROVIDERS: PCP Internal Medicine; Visit Provider Internal Medicine
DX: G06.2 Extradural and subdural abscess, unspecified (principal)
CPT/HCPCS: 99213

== ENCOUNTER → 2024-05-14 13:48 | Outpatient (BNVA) | payer OTHER, SELFPAY | PROVIDERS: PCP Internal Medicine; Visit Provider Internal Medicine | DX: G06.2 Extradural and subdural abscess, unspecified (principal) | CPT/HCPCS: 99212 ==

== ENCOUNTER 2024-09-14 09:05 | Emergency (ER) | payer OTHER, SELFPAY ==
--- NOTE | 2024-09-14 | ECG_ITS ---
Test Reason : bradycardia Blood Pressure : */* mmHG Vent. Rate : 51 BPM Atrial Rate : 51 BPM P-R Int : 136 ms QRS Dur : 80 ms QT Int : 468 ms P-R-T Axes : 67 28 35 degrees QTcB Int : 431 ms Sinus bradycardia Cannot rule out Anterior infarct , age undetermined Abnormal ECG When compared with ECG of 01-May-2024 03:41, Vent. rate has decreased by 42 bpm Nonspecific T wave abnormality no longer evident in Anterior leads Referred By: Generic ED Physician Electronically Signed By: Josh Cyr
--- NOTE | ~2024-09-14 | XR_ITS ---
EXAMINATION: XR SHOULDER 2 OR MORE VIEWS RIGHT HISTORY: fall COMPARISON: There are no prior studies available for comparison. FINDINGS: Three views of the right shoulder are submitted. Osseous mineralization is normal. There is a minimally displaced fracture of the distal clavicle. No additional fracture is seen. There is no dislocation. The glenohumeral and acromioclavicular joint spaces are preserved. The soft tissues are unremarkable. XR/XR shoulder RT min 2V IMPRESSION: Minimal a displaced fracture of the distal clavicle. Electronically signed by: Hugo Peterson MD 09/14/2024 10:30 AM EDT
[2024-09-14 09:27] VITALS: BP 112/43; PULSE 53; RESP 20; TEMP 37; O2SAT 98; BMI 21.0
--- NOTE | 2024-09-14 09:40 | PC.NURSE ---
Triage tech notified this RN in triage that patient was refusing lab work at this time. Pt did let them perform EKG
--- NOTE | 2024-09-14 09:41 | MHC.EDTECH ---
pt refused bloodwork sap business objects consultant Emily made aware
[2024-09-14 11:44] VITALS: BP 102/46; PULSE 47; RESP 14; TEMP 37; O2SAT 99
--- NOTE | 2024-09-14 11:49 | MHC.EDTECH ---
Patient is refusing labs. She stated she is here for her shoulder so she is not getting labs done. RN and provider aware.
--- NOTE | 2024-09-14 12:31 | ED_ITS ---
HPI - General Adult General Chief complaint: Fall Stated complaint: fall shoulder and head inj Time Seen by Provider: 09/14/24 11:51 Source: patient, RN notes reviewed and old records reviewed Mode of arrival: ambulatory History of Present Illness ED Provider: Rabia De León PA-C HPI narrative: 33 year old female with PMHx cocaine/heroin use disorder, Hep C (tx years ago per pt) presenting to the ED c/o R shoulder pain after possible syncopal episode this AM. Reports she got up to the use the bathroom around 0630AM, and the last thing she remembers is changing the bulb in her salt lamp before waking up on the floor screaming in pain. Denies incontinence or tongue biting. Reports striking the back of her head on the steel part of a table, however unable to recall any events leading up to incident, and denies symptoms prior to incident including CP/SOB, lightheadedness /dizziness. Denies fever, DENNIS, vision changes, lightheadedness, dizziness, sore throat, CP/ palpitations, cough/SOB, abd pain, N/V/D, dysuria/hematuria, urinary incontinence, numbness/tingling, recent illness/sick contacts. Denies hx of syncope, seizures, alcohol use. Reports hx IVDU and last use was several months ago, currently on methadone. Related Data Home Medications ?Medication ?Instructions ?Recorded ?Confirmed methadone 10 mg/mL oral concentrate 100 mg PO DAILY 07/05/23 05/02/24 fluoxetine 40 mg capsule 40 mg PO DAILY 05/01/24 05/01/24 gabapentin 400 mg capsule 400 mg PO TID NERVE PAIN 05/01/24 05/01/24 methadone 10 mg/mL oral concentrate 50 mg PO BEDTIME 05/02/24 05/02/24 Previous Rx's ?Medication ?Instructions ?Recorded omeprazole 20 mg capsule,delayed 20 mg PO DAILY #90 caps 05/08/24 release vancomycin 1,000 mg intravenous 1 g IV Q12H 36 days #72 ea 05/08/24 injection Allergies Allergy/AdvReac Type Severity Reaction Status Date / Time No Known Allergies Allergy Verified 09/14/24 09:31 [No Known Allergies*] Review of Systems Review of Systems: Yes all other systems are reviewed and are negative Constitutional: Constitutional: Reports as per HPI Neurologic: Denies Abnormal speech present [facility] Past Medical History Attestation statement: The following information was validated with the patient. Source: old records reviewed Medical History Cocaine abuse Opioid use disorder Injection of illicit drug within last 12 months Opiate dependence MRSA (methicillin resistant staph aureus) culture positive Social History Social History Household Members: Family Housing: House Do you presently have visiting nurse or other home services: No Alcohol intake: never Patient Tobacco Use Status: Never used Tobacco Tobacco use type: Cigarette Cigarettes Per Day: 2 Smoked in Last 30 Days: Yes Use of substances other than those prescribed or required for medical reasons: No Substance Use Type: Crack/Cocaine, Heroin and Opiates Advance Directives: No Advance Directives Information Provided: Yes service: No Physical Exam ED Vital Signs: Vital Signs - 24 hr 09/14/24 09:27 09/14/24 11:44 09/14/24 13:07 Temperature 98.6 F 98.6 F Pulse Rate 53 47 L 50 Respiratory Rate 20 14 Blood Pressure 112/43 L 102/46 L 112/56 L Pulse Oximetry 98 99 Oxygen Delivery Method Room Air Room Air 09/14/24 13:10 09/14/24 13:13 Temperature Pulse Rate 53 54 Respiratory Rate Blood Pressure 111/63 107/66 Pulse Oximetry Oxygen Delivery Method BMI result Body Mass Index 21.0 Const General: cooperative, no acute distress, alert and awake Orientation/consciousness: patient oriented x3 Limitations: no limitations HENMT Other: No erythema/swelling/abrasions, ttp over scalp. Head: Yes normal to inspection, Yes normocephalic, Yes atraumatic, No abrasion, No scalp lesion and No scalp tenderness Ears: hearing grossly normal bilaterally General nose exam: Normal external nose present Face and sinus: Yes normal facial exam Mouth: oropharynx normal and moist mucous membranes Throat: Yes posterior oropharynx normal, Yes uvula midline and No peritonsillar mass Eyes General: appearance normal, both eyes and all related structures Pupils: Equal, round and reactive pupils present EOM: EOMs intact bilaterally Neck Other: no midline cervical spine tenderness. Neck nontender to palpation, no erythema/ecchymosis. Neck: Yes normal visual inspection, Yes full ROM, Yes no meningeal signs and No tender Chest Chest palpation & inspection: normal inspection of the chest Resp Effort & Inspection: normal respiratory effort, able to speak in complete sentences, no cough and no respiratory distress Auscultation: clear to auscultation bilaterally, no crackles and no wheezes Cardio Rate: regular rate Heart sounds: S1 normal heart sound present and S2 normal heart sound present GI Inspection: Yes normal to inspection Palpation (GI): Soft to palpation, nontender, no guarding and not rigid General: Yes no CVA tenderness Back/Spine/Pelvis Other: No midline cervical/thoracic/lumbar spinous tenderness/step-off or deformity Back: no CVA tenderness and No back tenderness Skin Rashes: no rashes Wounds: no wounds Neuro General: patient oriented x3, gait normal, tone normal, moves all extremities, no meningeal signs, no focal motor deficits and CN's II-XI intact bilaterally Cranial nerves: Yes CN's II-XII intact bilaterally, Yes Equal, round and reactive pupils present and Yes Bilaterally intact EOM present Cognition (Neuro): normal cognition Speech: No Abnormal speech present Gait exam (Neuro): Normal gait present Motor exam (neuro): 5/5 motor strength present throughout, no tremor noted and Normal motor muscle tone present throughout Extrem Other: No erythema/ecchymosis/obvious deformity of R shoulder/clavicle. Limited ROM likely d/t pain. TTP over R distal clavicle. Neurovascularly intact distally. General: Yes normal to inspection Course Course Course Narrative: XR shoulder RT min 2V IMPRESSION: Minimal a displaced fracture of the distal clavicle. > sling applied. Recommended orthopedic follow-up. 1430-- Patient has been poked multiple times for blood without success. Would like to try with ultrasound guidance however patient now refusing labs and further imaging. States she would just like to go home. She is A&O x3, coherent, can make her own decisions. Will sign out AMA. Always welcome to return to the ED Medications Administered Discontinued Medications Generic Name Dose Route Start Last Admin Trade Name Janeth PRN Reason Stop Dose Admin Acetaminophen 650 mg 09/14/24 12:30 09/14/24 12:52 Acetaminophen 325 Mg Tablet PO 09/14/24 12:31 650 mg ONCE ONE Administration Procedures Orthopedic Splinting/Casting Injury #1: Side: right Upper Extremity Injury Location: clavicle Upper Extremity Immobilizer: sling/shoulder immobilizer Medical Decision Making Medical Decision Making [facility] Narrative: 33 year old female with PMHx cocaine/heroin use disorder, Hep C (tx years ago per pt) presenting to the ED c/o R shoulder pain after possible syncopal episode this AM. On exam vital signs stable, NAD, nontoxic appearing, physical exam as above. No focal neuro deficits or midline spinous tenderness. Right shoulder / clavicular area with reproducible tenderness and limited ROM secondary to pain. Concern for syncope vs seizure vs cardiac pathology/arrhythmia vs substance use/intoxication vs electrolyte/metabolic disturbance. Rule out ICH vs fractures. Lower suspicion for rhabdomyolysis, aortic dissection, PE, acute TX, uterine pathology/ruptured ectopic, hemorrhage Plan: labs, EKG, orthostatic vitals, UA, Upreg, HEATH, shoulder x-ray, CT head and cervical spine Differential Diagnosis Differential Diagnoses: The differential diagnosis associated with the presentation includes As above Admission/Observation Consideration of admission/observation: Escalation of care including admission/observation considered Lab Data [facility] Lab Attestation statement: I reviewed the patient's lab results. Independent Interpretation I performed an independent interpretation of an: EKG, Plain X-Ray and CT Scan Radiology Impression Discussion of test interpretation with radiology: I have reviewed the radiologist's reading. External Record Review External record reviewed: Inpatient record, Office record, Outpatient record, Prior outpatient labs, Prior outpatient radiology, Primary care record and Outside ED record Tests considered The following testing was considered but not selected: As above Prescription Management I considered prescription management with: Pain Medication Chronic Conditions Patient?s care impacted by: Other Social Determinants Patient?s care significantly limited by Social Determinants of Health including: Other Social Determinant of Health Discharge Plan Discharge Clinical Impression: Syncope, Head injury Patient Disposition: Left Against Medical Advice Instructions: Syncope (DC), Head Injury (ED) Additional Instructions: you have a broken clavicle. You need to wear sling at all times, you may r emove to sleep and shower, otherwise please wear it Please continue to move your hand/ fingers and wrist / elbow or you develop frozen joints You need to follow up with microbial specialist, call to make an appointment Ice clavicle Take Tylenol and ibuprofen You are signing out against medical advice however you are always welcome to return to the emergency department Eighty recurrent passing out episodes, persistent or worsening headache, nausea /vomiting, weakness return to the ED Prescriptions: No Action methadone 10 mg/mL Concentrate 100 mg PO DAILY gabapentin 400 mg Capsule 400 mg PO TID fluoxetine 40 mg Capsule 40 mg PO DAILY methadone 10 mg/mL Concentrate 50 mg PO BEDTIME vancomycin 1,000 mg recon soln 1 g IV Q12H 36 Days Qty: 72 0RF omeprazole 20 mg Capsule,Delayed Release(Dr/Ec) 20 mg PO DAILY Qty: 90 0RF Referrals: [facility] [Provider Group] - 1 week Rosa Elena Morel MD [Primary Care Provider] - 5 days Stand Alone Forms: Against Medical Advice Print Language: Bahamian
[2024-09-14] MEDS: Acetaminophen 325 MG TABLET 650 MG PO (12:52)
--- NOTE | 2024-09-14 13:05 | PC.NURSE ---
pt finally allowed the blood draw two ed techs attempted but unsuccessful, pt is a very difficulty draw
[2024-09-14 13:07] VITALS: BP 112/56; PULSE 50
--- OUTSIDE RECORDS SUMMARY | 2024-09-14 13:09 | XMS_ITS | Encounter Summary ---
Author Organization [facility] Address [address] [place] [address] Phone Care Team Providers Care Coal Hauler Operator Name Role Phone Dyana Mao MD Primary Care Provider [phone] Encounter Details Date Type Department Care Team (Late st Contact Info) Description 02/18/2011 Documentation [facility] [address] [place] [address] Family Medicine, Physician [address] [place], [place] [id number] Social History Tobacco Use Types Packs/Day Years Used Date Smoking Tobacco: Never Assessed Comments Unknown Sex and Gender Information Value Date Recorded Sex Assigned at Not on file Legal Sex Female 4:28 PM EDT Gender Identity Not on file Sexual Orientation Not on file documented as of this encounter Plan of Treatment Not on file documented as of this encounter Visit Diagnoses Not on filedocumented in this encounter Care Teams Coal Hauler Operator Relationship Specialty Start Date End Date Dyana Mao MD [address] [place], [place] [address] [id number] PCP - General 01/14/17 08/04/22 documented as of this encounter
--- OUTSIDE RECORDS SUMMARY | 2024-09-14 13:09 | XMS_ITS | Continuity of Care Document ---
Author Organization [facility] Address [address] [place] [address] Phone Care Team Providers Care Secondary School Teacher Name Role Phone Z-Converted, Provider Unavailable Unavailabl e Medications Medication Instructions Dosage Effective Dates (start - stop) Status Comments Suboxone 2 mg-0.5 mg Sublingual Tab 1 sublingual daily - Active Advance Directives Directive Yes / No Effective Date File Name No Information Encounters Encounter Description Practice Location Reason(s) For Visit Diagnoses Date Provider Providers Copied on Encounter [facility], [address] [place] [address],[address], [place], [place], [id number], [place] tel:[phone] Converted Locations No Information 8 Z-Convert ed Provider. . [facility], [address] [place] [address],[address], [place], [place], [id number], [place] tel:[phone] [facility] Need for other specified prophylactic measure 8 Z-Convert ed Provider. . [facility], [address] [place] [address],[address], [place], [place], [id number], [place] tel:[phone] [facility] Carrier or suspected carrier of hepatitis c 8 Z-Convert ed Provider. . [facility], [address] [place] [address],[address], [place], [place], [id number], [place] tel:[phone] [facility] Nonspecific abnormal results of function study of liverNondepende nt cannabis abuse, episodic use Reilly-1 3-200 8 Z-Convert ed Provider. . Jasondiane Rao [facility], [address], [place], [place], [id number], [place] tel:[phone] [facility] Opioid type dependence, unspecified use 200 8 Z-Convert ed Provider. . Family History Family Member Type Diagnosis Age At Onset No Information Immunizations Vaccine Date Status Comments Influenza Vaccine administered Source: Emily w Immunization Record HEPATITIS A administered Source: New Imm unization Record TDAP administered Source: New Imm unization Record Payers Payer name Insurance type Covered republican ID Authoriza tion(s) No Information Social History Type Description Quantity Date Captured Comments Sex Female Smoking Status No Information Chief Complaint And Reason For Visit No Information Reason For Referral Reason For Referral No Information History Of Present Illness Encounter Date Complaint History Of Prese nt Illness No Information Functional Status Date Functional Assessmen t No Information Instructions Date Instruction Additional Infor mation No Information Assessments Type Assessment Date No Information Patient Care Teams Name Effective Dates (start - stop) Status Members No Information
--- OUTSIDE RECORDS SUMMARY | 2024-09-14 13:09 | XMS_ITS | Encounter Summary ---
Author Organization [facility] Address [address] [place] [address] Phone Care Team Providers Care Director Of Golf Name Role Phone Dyana Mao MD Primary Care Provider [phone]- [phone] Encounter Details Date Type Department Care Team (Late st Contact Info) Description 02/18/2011 Documentation [facility] [place] [address] [place] [address] Family Medicine, Physician [address] [place], [place] [phone] Social History Tobacco Use Types Packs/Day Years [...] on filedocumented in this encounter Care Teams Director Of Golf Relationship Specialty Start Date End Date Dyana Mao MD [address] [place], [place] [address] [address] PCP - General 01/14/17 08/04/22 documented as of this encounter
--- OUTSIDE RECORDS SUMMARY | 2024-09-14 13:09 | XMS_ITS | Encounter Summary ---
Author Organization [facility] Address [address] [place] [address] Phone Care Team Providers Care Sponsorship Manager Name Role Phone Dyana Mao MD Primary Care Provider [phone]- [phone] Encounter Details Date Type Department Care Team (Late st Contact Info) Description 02/18/2011 [place]ation [facility] [place] [address] [place] [address] Family Medicine, Physician [address] [place], [place] [phone] Social History Tobacco Use Types Packs/Day Years [...] on filedocumented in this encounter Care Teams Sponsorship Manager Relationship Specialty Start Date End Date Dyana Mao MD [address] [place], [place] [address] [address] PCP - General 01/14/17 08/04/22 documented as of this encounter
--- OUTSIDE RECORDS SUMMARY | 2024-09-14 13:09 | XMS_ITS | Clinical Summary ---
Author Organization [facility] Address [address] [place] [address] Care Team Providers Care Technology Instructor Name Role Phone Hailey Bernal MD Primary Care Provider [phone] Allergies No known active allergies Medications methadone (DOLOPHINE) 10 mg/mL concentrated solution Take 3.5 mL by mouth every 4 hours as needed for Pain. 0 Active permethrin (Lice Treatment) 1 % liquid Apply enough to saturate scalp and hair; leave in for 10 minutes and then rinse. May repeat in 1 week if needed 0 Active sertraline (ZOLOFT) 25 mg tablet Take 1 tablet (25 mg total) by mouth 1 (one) time each day. 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 Immunizations Name Administration Dates Next Due Influenza Quadravalent, MDCK , 0.5ml, preservative free (Flucelvax) 6mo and older 05/05/2020 Td Tetanus diptheria (Tdvax) 7yo and older 05/05 Surgical History Surgery Date Site/Laterality Comments WISDOM TOOTH EXTRACTION PROCEDURE: HISTORICAL WISDOM TEETH EXTRACTION Medical History Medical History Date Comments History of substance abuse ( CMS/HCC V24, CMS/HCC V28) 07/13/2010 DX:History of substance abus e (HCC) Encounter for insertion of Mirena IUD 2012 DX:Encounter for insertion of Mirena IUD History of hepatitis C 06/07/2012 DX:Histor y of hepatitis C; COMMENT: Chronic Hepatitis C Genotype 1A. Tx Started 07/01/16 Harvoni 90-400 mg tabs. Take 1 tab daily for 8 weeks. End Date 09/02/16. Injection site abscess 01/29/2021 DX:Inject ion site abscess; COMMENT: MRSA pos culture: seen [facility] 01/18/2021, pt left AMA Family History Medical History Relation Name Comments No Known Problems Father Brain cancer Maternal Grandmother Cervical cancer Maternal Grandmother Diabetes Mother Schizophrenia Mother Breast cancer Other cousin Colon cancer Neg Hx Ovarian cancer Neg Hx Relation Name Status Comments Daughter Estrella Alive Father Alive Maternal Grandmother Mother Alive Other cousin Alive Social History Tobacco Use Types Packs/Day Years Used Date Smoking Tobacco: Every Day Cigarettes Last attempted to quit: 02/04/2013 Smokeless Tobacco: Never Alcohol Use Standard Drinks/Week Comments Yes 0 (1 standard drink = 0.6 oz pur e alcohol) Comments Unknown Sex and Gender Information Value Date Recorded Sex Assigned at Not on file Legal Sex Female 12:39 PM EST Gender Identity Not on file Sexual Orientation Not on file Obstetrics History Plan of Treatment Health Maintenance Due Date Last Done Comments Hepatitis B Vaccines (1 of 3 - 19+ 3-dose series) 12/30/2007 Pneumococcal Vaccine: Pediatrics (0 to 5 Years) and At-Risk Patients (6 to 64 Years) (1 of 2 - PCV) 12/30/2007 Cervical Cancer Screening: P ap Smear 03/01/2020 03/01/2017, 03/01/2017 Depression Screening 05/04/2022 Social Influencers of Health Screening 05/04/2022 COVID-19 Vaccine (1 - 2023-2 5 season) 2024 Influenza Vaccine (Season Ended) 2025 05/05/2020 DTaP,Tdap,and Td Vaccines (2 - Td or Tdap) 05/05/2030 05/05/2020 Hepatitis C Screening Completed 08/14/2016 HIV Screening Completed 05/05/2020 HIB Vaccines Aged Out No longer eligi ble based on patient's age to complete this topic HPV Vaccines Aged Out No longer eligi ble based on patient's age to complete this topic Hepatitis A Vaccines Aged Out No long er eligible based on patient's age to complete this topic IPV Vaccines Aged Out No longer eligi ble based on patient's age to complete this topic MMR Vaccines Aged Out No longer eligi ble based on patient's age to complete this topic Meningococcal ACWY Vaccine Aged Out N o longer eligible based on patient's age to complete this topic Meningococcal B Vaccine Aged Out No l onger eligible based on patient's age to complete this topic RSV Immunization Patients Under 20 months Aged Out No longer eligible b ased on patient's age to complete this topic Varicella Vaccines Aged Out No longer eligible based on patient's age to complete this topic Procedures Procedure Name Priority Date/Time Associated Diagnosis Comments HIV SCREENING Routine 05/05/2020 HPV Routine 03/01/2017 HEPATITIS C SCREENING Routine 08/14/2016 from Last 3 Months or Most Recently Relevant to Health Maintenance Results * HIV Screening (05/05/2020) HIV Screening abstracted [facility] Provider HEALTH MAINTENANCE Final Result * Cervical Cancer Screening: HPV (03/01/2017) Pathologist [facility] Cervical Cancer Screening: HPV no interpretation , abstracted [facility] Provider HEALTH MAINTENANCE Final Result * Hepatitis C Screening (08/14/2016) Hepatitis C Screening abstracted Historical Provider HEALTH MAINTENANCE Final Result from Last 3 Months or Most Recently Relevant to Health Maintenance Care Teams Technology Instructor Relationship Specialty Start Date End Date Hailey Bernal MD [address] [place] [address] PCP - General Internal Medicine 07/23/19
--- OUTSIDE RECORDS SUMMARY | 2024-09-14 13:09 | XMS_ITS | Encounter Summary ---
Author Organization [facility] Address [address] [place] [address] Phone Care Team Providers Care Security Lead Name Role Phone Dyana Mao MD Primary Care Provider [phone] Encounter Details Date Type Department Care Team (Late st Contact Info) Description 02/18/2011 Documentation [facility] [place] Family Medicine [address] [place] [address] Family Medicine, Physician [address] [place], [place] [phone] Social History Tobacco Use Types Packs/Day Years [...] on filedocumented in this encounter Care Teams Security Lead Relationship Specialty Start Date End Date Dyana Mao MD [address] [place], [place] [address] [address] PCP - General 01/14/17 08/04/22 documented as of this encounter
--- OUTSIDE RECORDS SUMMARY | 2024-09-14 13:09 | XMS_ITS | Encounter Summary ---
Author Organization [facility] Address [address] [place] [address] Phone Care Team Providers Care Artists' Booking Representative Name Role Phone Dyana Mao MD Primary Care Provider [phone] Encounter Details Date Type Department Care Team (Late st Contact Info) Description 01/20/2017 Conversion Encounter [facility] [place] [address] [place] [address] Social History Tobacco Use Types Packs/Day Years [...] on filedocumented in this encounter Care Teams Artists' Booking Representative Relationship Specialty Start Date End Date Dyana Mao MD [address] [place] [address] PCP - General 01/14/17 08/04/22 documented as of this encounter
--- OUTSIDE RECORDS SUMMARY | 2024-09-14 13:09 | XMS_ITS | Encounter Summary ---
Author Organization [facility] Address [address] [place] [address] Phone Care Team Providers Care Environmental Services Floor Tech Name Role Phone Dyana Mao MD Primary Care Provider [phone]- [phone] Encounter Details Date Type Department Care Team (Late st Contact Info) Description 02/18/2011 Documentation [facility] [place] [address] [place] [address] Family Medicine, Physician [address] [place], [place] [phone] Social History Tobacco Use Types Packs/Day Years [...] on filedocumented in this encounter Care Teams Environmental Services Floor Tech Relationship Specialty Start Date End Date Dyana Mao MD [address] [place], [place] [address] [address] PCP - General 01/14/17 08/04/22 documented as of this encounter
--- OUTSIDE RECORDS SUMMARY | 2024-09-14 13:09 | XMS_ITS | Encounter Summary ---
Author Organization [facility] Address [address] [place] [address] Phone Care Team Providers Care Calendering Supervisor Name Role Phone Dyana Mao MD Primary Care Provider [phone]- [phone] Encounter Details Date Type Department Care Team (Late st Contact Info) Description 02/18/2011 Documentation [facility] [place] [address] [place] [address] Family Medicine, Physician [address] [place], [place] [phone] Social History Tobacco Use Types Packs/Day Years [...] on filedocumented in this encounter Care Teams Calendering Supervisor Relationship Specialty Start Date End Date Dyana Mao MD [address] [place], [place] [address] [address] PCP - General 01/14/17 08/04/22 documented as of this encounter
--- OUTSIDE RECORDS SUMMARY | 2024-09-14 13:09 | XMS_ITS | Encounter Summary ---
Author Organization [facility] Address [address] [place] [address] Phone Care Team Providers Care Police Clerk Name Role Phone Dyana Mao MD Primary Care Provider [phone]- [phone] Encounter Details Date Type Department Care Team (Late st Contact Info) Description 02/18/2011 Documentation [facility] [place] [address] [place] [address] Family Medicine, Physician [address] [place], [place] [phone] Social History Tobacco Use Types Packs/Day Years [...] on filedocumented in this encounter Care Teams Police Clerk Relationship Specialty Start Date End Date Dyana Mao MD [address] [place], [place] [address] [address] PCP - General 01/14/17 08/04/22 documented as of this encounter
--- OUTSIDE RECORDS SUMMARY | 2024-09-14 13:09 | XMS_ITS | Encounter Summary ---
Author Organization [facility] Address [address] [place] [address] Phone Care Team Providers Care Manager Financial Systems Name Role Phone Dyana Mao MD Primary Care Provider [phone]- [phone] Encounter Details Date Type Department Care Team (Late st Contact Info) Description 02/18/2011 [place]ation [facility] [place] [address] [place] [address] Family Medicine, Physician [address] [place], [place] [phone] Social History Tobacco Use Types Packs/Day Years [...] on filedocumented in this encounter Care Teams Manager Financial Systems Relationship Specialty Start Date End Date Dyana Mao MD [address] [place], [place] [address] [address] PCP - General 01/14/17 08/04/22 documented as of this encounter
--- OUTSIDE RECORDS SUMMARY | 2024-09-14 13:09 | XMS_ITS | Encounter Summary ---
Author Organization [facility] Address [address] [place] [address] Phone Care Team Providers Care Insurance Sales Agent Name Role Phone Dyana Mao MD Primary Care Provider [phone]- [phone] Encounter Details Date Type Department Care Team (Late st Contact Info) Description 02/18/2011 Documentation [facility] [place] [address] [place] [address] Family Medicine, Physician [address] [place], [place] [phone] Social History Tobacco Use Types Packs/Day Years [...] on filedocumented in this encounter Care Teams Insurance Sales Agent Relationship Specialty Start Date End Date Dyana Mao MD [address] [place], [place] [address] [address] PCP - General 01/14/17 08/04/22 documented as of this encounter
--- OUTSIDE RECORDS SUMMARY | 2024-09-14 13:09 | XMS_ITS | Encounter Summary ---
Author Organization [facility] Address [address] [place] [address] Phone Care Team Providers Care Auricular Acupuncturist Name Role Phone Dyana Mao MD Primary Care Provider [phone]- [phone] Encounter Details Date Type Department Care Team (Late st Contact Info) Description 02/18/2011 Documentation [facility] [place] [address] [place] [address] Family Medicine, Physician [address] [place], [place] [phone] Social History Tobacco Use Types Packs/Day Years [...] on filedocumented in this encounter Care Teams Auricular Acupuncturist Relationship Specialty Start Date End Date Dyana Mao MD [address] [place], [place] [address] [address] PCP - General 01/14/17 08/04/22 documented as of this encounter
--- OUTSIDE RECORDS SUMMARY | 2024-09-14 13:09 | XMS_ITS | Encounter Summary ---
Author Organization [facility] Address [address] [place] [address] Phone Care Team Providers Care Shuttle Inspector Name Role Phone Dyana Mao MD Primary Care Provider [phone]- [phone] Encounter Details Date Type Department Care Team (Late st Contact Info) Description 02/18/2011 Documentation [facility] [place] Family Medicine [address] [place] [address] Family Medicine, Physician [address] [place], [place] [phone] Social History Tobacco Use Types Packs/Day Years [...] on filedocumented in this encounter Care Teams Shuttle Inspector Relationship Specialty Start Date End Date Dyana Mao MD [address] [place], [place] [address] [address] PCP - General 01/14/17 08/04/22 documented as of this encounter
--- OUTSIDE RECORDS SUMMARY | 2024-09-14 13:09 | XMS_ITS | Encounter Summary ---
Author Organization [facility] Address [address] [place] [address] Phone Care Team Providers Care Tripe Washer Name Role Phone Dyana Mao MD Primary Care Provider [phone]- [phone] Encounter Details Date Type Department Care Team (Late st Contact Info) Description 02/18/2011 Documentation [facility] Family Medicine [address] [place] [address] Family Medicine, Physician [address] [place], [place] [phone] Social History Tobacco Use Types Packs/Day Years [...] on filedocumented in this encounter Care Teams Tripe Washer Relationship Specialty Start Date End Date Dyana Mao MD [address] [place], [place] [address] [address] PCP - General 01/14/17 08/04/22 documented as of this encounter
--- OUTSIDE RECORDS SUMMARY | 2024-09-14 13:09 | XMS_ITS | Encounter Summary ---
Author Organization [facility] Address [address] [place] [address] Phone Care Team Providers Care Global Project Manager Name Role Phone Dyana Mao MD Primary Care Provider [phone]- [phone] Encounter Details Date Type Department Care Team (Late st Contact Info) Description 02/18/2011 Documentation [facility] [place] [address] [place] [address] Family Medicine, Physician [address] [place], [place] [phone] Social History Tobacco Use Types Packs/Day Years [...] on filedocumented in this encounter Care Teams Global Project Manager Relationship Specialty Start Date End Date Dyana Mao MD [address] [place], [place] [address] [address] PCP - General 01/14/17 08/04/22 documented as of this encounter
--- OUTSIDE RECORDS SUMMARY | 2024-09-14 13:09 | XMS_ITS | Clinical Summary ---
Author Organization [facility] Address [address] [place] [address] Phone Care Team Providers Care An Employee Sponsor Or Advocate And Name Role Phone Unavailable Primary Care Provider Unavailabl e Immunizations Immunization Administration Dates Next Due DTP 09/24/1993, 1,11/08/1989,07/21,03/24/1989 HPV, Quadrivalent 05/16/2009,03/15/2008,11/16/19 08 Hep B, ped/adol 01/07/2000,09/01/1999,12/04/1998 Hib (PRP-T) 05/02/1990 MMR 01/07/2000,05/02/1990 Meningococcal Conj (Menactra) MCV4P 11/16/2007 OPV 09/24/1993, 1,07/21/1989,03/24 Td (adult) (MBL), 2 Lf tetan us toxoid, PF, adsorbed 11/10/1999 Tdap 11/16/2007 Family History Relation Name Status Comments Mother Mother: Schizop hrenia Social History Tobacco Use Types Packs/Day Years Used Date Smoking Tobacco: Never Assessed Comments Unknown Sex and Gender Information Value Date Recorded Sex Assigned at Not on file Legal Sex Female 4:28 PM EDT Gender Identity Not on file Sexual Orientation Not on file Last Filed Vital Signs Vital Sign Reading Time Taken Comments Blood Pressure - - Pulse - - Temperature 35.8 ??C (96.5 ??F) 09/03/2009 12:00 AM E DT Respiratory Rate - - Oxygen Saturation - - Inhaled Oxygen Concentration - - Weight 59.4 kg (131 lb) 09/03/2009 12:00 AM EDT Height - - Body Mass Index - - Plan of Treatment Health Maintenance Due Date Last Done Comments Varicella Vaccines (1 of 2 - 13+ 2-dose series) 2001 DTaP,Tdap,and Td Vaccines (7 - Td or Tdap) 11/15/2017 11/16/2007, 11/10/1999, 09/24/1993, Additional history exists Influenza Vaccines (#1) 2024 COVID-19 Vaccine ( season) 2024 HIB Vaccines Completed 05/02/1990 IPV Vaccines Completed 09/24/1993, 09/05, 07/21/1989, Additional history exists Hepatitis B Vaccines Completed 01/07/2000, 09/01/1999, 12/04/1998 MMR Vaccines Completed 01/07/2000, 05/02/1990 Meningococcal Vaccine Completed 11/16/2007 HPV Vaccines Completed 05/16/2009, 03/06, 11/16/2007 Hepatitis A Vaccines Aged Out No long er eligible based on patient's age to complete this topic Men B Vaccine Aged Out No longer elig ible based on patient's age to complete this topic Pneumococcal Vaccine Aged Out No long er eligible based on patient's age to complete this topic
--- OUTSIDE RECORDS SUMMARY | 2024-09-14 13:09 | XMS_ITS | Encounter Summary ---
Author Organization [facility] Address [address] [place] [address] Phone Care Team Providers Care Pastry Baker Name Role Phone Dyana Mao MD Primary Care Provider [phone]- [phone] Encounter Details Date Type Department Care Team (Late st Contact Info) Description 02/18/2011 Documentation [facility] [place] [address] [place] [address] Family Medicine, Physician [address] [place], [place] [phone] Social History Tobacco Use Types Packs/Day Years [...] on filedocumented in this encounter Care Teams Pastry Baker Relationship Specialty Start Date End Date Dyana Mao MD [address] [place], [place] [address] [address] PCP - General 01/14/17 08/04/22 documented as of this encounter
[2024-09-14 13:10] VITALS: BP 111/63; PULSE 53
--- OUTSIDE RECORDS SUMMARY | 2024-09-14 13:10 | XMS_ITS | Encounter Summary ---
Author Organization [facility] Address [address] [place] [address] Phone Care Team Providers Care Observation Assistant Name Role Phone Dyana Mao MD Primary Care Provider [phone]- [phone] Encounter Details Date Type Department Care Team (Late st Contact Info) Description 02/18/[address] [facility] [place] Family Medicine [address] [place] [address] Family Medicine, Physician [address] [place], [place] [phone] Social History Tobacco Use Types Packs/Day Years [...] on filedocumented in this encounter Care Teams Observation Assistant Relationship Specialty Start Date End Date Dyana Mao MD [address] [place], [place] [address] [address] PCP - General 01/14/17 08/04/22 documented as of this encounter
--- OUTSIDE RECORDS SUMMARY | 2024-09-14 13:10 | XMS_ITS | Encounter Summary ---
Author Organization [facility] Address [address] [place] [address] Phone Care Team Providers Care Association Executive Name Role Phone Dyana Mao MD Primary Care Provider [phone]- [phone] Encounter Details Date Type Department Care Team (Late st Contact Info) Description 02/18/2011 Documentation [facility] [place] Family Medicine [address] [place] [address] Family Medicine, Physician [address] [place], [place] [phone] Social History Tobacco Use Types Packs/Day Years [...] on filedocumented in this encounter Care Teams Association Executive Relationship Specialty Start Date End Date Dyana Mao MD [address] [place], [place] [address] [address] PCP - General 01/14/17 08/04/22 documented as of this encounter
[2024-09-14 13:13] VITALS: BP 107/66; PULSE 54
[2024-09-14 14:56] VITALS: BP 107/66; PULSE 54; RESP 18; TEMP -17.7; TEMP 0
== END 2024-09-14 14:56 | disposition left against medical advice (07) ==
PROVIDERS: Emergency Provider Emergency Medicine Emergency Medical Services; PCP Internal Medicine
DX: S49.91XA Unspecified injury of right shoulder and upper arm, initial encounter (principal); R55 Syncope and collapse; R00.1 Bradycardia, unspecified; M25.511 Pain in right shoulder; W01.0XXA Fall on same level from slipping, tripping and stumbling without subsequent striking against object, initial encounter; Y93.01 Activity, walking, marching and hiking; Y92.002 Bathroom of unspecified non-institutional (private) residence as the place of occurrence of the external cause; Y99.8 Other external cause status
CPT/HCPCS: 29105; 73030; 93005; 99283; 99284; 99285

== ENCOUNTER → 2024-09-14 09:36 | Outpatient (BNV) | payer OTHER, SELFPAY | PROVIDERS: Emergency Provider Emergency Medicine Emergency Medical Services; PCP Internal Medicine; Visit Provider Internal Medicine Cardiovascular Disease | DX: R00.1 Bradycardia, unspecified (principal) | CPT/HCPCS: 93010 ==

== ENCOUNTER → 2024-09-14 09:45 | Outpatient (BNV) | payer OTHER, SELFPAY | PROVIDERS: PCP Internal Medicine; Visit Provider Radiology Diagnostic Radiology | DX: S09.90XA Unspecified injury of head, initial encounter (principal); R55 Syncope and collapse; W19.XXXA Unspecified fall, initial encounter | CPT/HCPCS: 73030 ==

== ENCOUNTER 2024-09-26 08:08 | Outpatient (REF) | payer OTHER, SELFPAY ==
--- NOTE | ~2024-09-26 | XR_ITS ---
EXAMINATION: XR CLAVICLE, RIGHT CLINICAL INFORMATION: M89.8X1 - Other specified disorders of bone, shoulder COMPARISON: Right shoulder x-ray dated September 14, 2024. TECHNIQUE: AP views of the right clavicle. FINDINGS: Displaced fracture with a 5 mm gap between the fragments and inferior displacement distal fragment, right clavicle near the acromioclavicular joint. There is no callus formation. XR/XR clavicle RT IMPRESSION: Inferiorly displaced fracture, right clavicle without callus formation/healing. Electronically signed by: Greg De Leon MD 09/28/2024 08:58 AM EDT
--- OUTSIDE RECORDS SUMMARY | 2024-09-27 08:19 | XMS_ITS | Encounter Summary ---
Author Organization [facility] Address [address] [place] [address] Phone Care Team Providers Care Electric Meter Reader Name Role Phone Dyana Mao MD Primary Care Provider [phone] Encounter Details Date Type Department Care Team (Late st Contact Info) Description 01/20/2017 Conversion Encounter [facility] [place] [address] [place] [address] Social History Tobacco Use Types Packs/Day Years [...] on filedocumented in this encounter Care Teams Electric Meter Reader Relationship Specialty Start Date End Date Dyana Mao MD [address] [place] [address] PCP - General 01/14/17 08/04/22 documented as of this encounter
--- OUTSIDE RECORDS SUMMARY | 2024-09-27 08:19 | XMS_ITS | Encounter Summary ---
Author Organization [facility] Address [address] [place] [address] Phone Care Team Providers Care Video Software Engineer Name Role Phone Dyana Mao MD Primary Care Provider [phone]- [phone] Encounter Details Date Type Department Care Team (Late st Contact Info) Description 02/18/2011 [place]ation [facility] [place] [address] [place] [address] Family Medicine, Physician [address] [place], [place] [phone] Social History Tobacco Use Types Packs/Day Years [...] on filedocumented in this encounter Care Teams Video Software Engineer Relationship Specialty Start Date End Date Dyana Mao MD [address] [place], [place] [address]FA[place] [address] PCP - General 01/14/17 08/04/22 documented as of this encounter
--- OUTSIDE RECORDS SUMMARY | 2024-09-27 08:19 | XMS_ITS | Encounter Summary ---
Author Organization [facility] Address [address] [place] [address] Phone Care Team Providers Care Food Assembler Kitchen Name Role Phone Dyana Mao MD Primary Care Provider [phone]- [phone] Encounter Details Date Type Department Care Team (Late st Contact Info) Description 02/18/2011 Documentation [facility] [place] [address] [place] [address] Family Medicine, Physician [address] [place], [place] [phone] Social History Tobacco Use Types Packs/Day Years [...] on filedocumented in this encounter Care Teams Food Assembler Kitchen Relationship Specialty Start Date End Date Dyana Mao MD [address] [place], [place] [address] [address] PCP - General 01/14/17 08/04/22 documented as of this encounter
--- OUTSIDE RECORDS SUMMARY | 2024-09-27 08:19 | XMS_ITS | Encounter Summary ---
Author Organization [facility] Address [address] [place] [address] Phone Care Team Providers Care Marine Geologist Name Role Phone Dyana Mao MD Primary Care Provider [phone]- [phone] Encounter Details Date Type Department Care Team (Late st Contact Info) Description 02/18/2011 Documentation [facility] [place] [address] [place] [address] Family Medicine, Physician [address] [place], [place] [phone] Social History Tobacco Use Types Packs/Day Years [...] on filedocumented in this encounter Care Teams Marine Geologist Relationship Specialty Start Date End Date Dyana Mao MD [address] [place], [place] [address] [address] PCP - General 01/14/17 08/04/22 documented as of this encounter
--- OUTSIDE RECORDS SUMMARY | 2024-09-27 08:19 | XMS_ITS | Encounter Summary ---
Author Organization [facility] Address [address] [place] [address] Phone Care Team Providers Care Shoe Planner Name Role Phone Dyana Mao MD Primary Care Provider [phone]- [phone] Encounter Details Date Type Department Care Team (Late st Contact Info) Description 02/18/2011 Documentation [place] [facility] [address] [place] [address] Family Medicine, Physician [address] [place], [place] [phone] Social History Tobacco Use Types Packs/Day Years [...] on filedocumented in this encounter Care Teams Shoe Planner Relationship Specialty Start Date End Date Dyana Mao MD [address] [place], [place] [address] [address] PCP - General 01/14/17 08/04/22 documented as of this encounter
--- OUTSIDE RECORDS SUMMARY | 2024-09-27 08:19 | XMS_ITS | Clinical Summary ---
Author Organization [facility] it Address [address] [place] [address] Care Team Providers Care Digester Cook Name Role Phone Hailey Bernal MD Primary Care Provider [phone] Allergies No known active allergies Medications methadone [...] 01/29/2021 Overview (05/23/2024): MRSA pos culture: seen [facility] [place] 01/18/2021, pt left AMA Methadone use [...] site abscess; COMMENT: MRSA pos culture: seen [facility] 01/18/2021, pt left AMA Family History [...] * HIV Screening (05/05/2020) HIV Screening abstracted [facility] Provider HEALTH MAINTENANCE Final Result * Cervical Cancer Screening: HPV (03/01/2017) Pathologist [facility] Cervical Cancer Screening: HPV no interpretation , abstracted [facility] Provider HEALTH MAINTENANCE Final Result * Hepatitis C Screening (08/14/2016) Hepatitis C Screening abstracted Historical Provider HEALTH MAINTENANCE Final Result from Last 3 Months or Most Recently Relevant to Health Maintenance Care Teams Digester Cook Relationship Specialty Start Date End Date Hailey Bernal MD [address] [place] [address] PCP - General Internal Medicine 07/23/19
--- OUTSIDE RECORDS SUMMARY | 2024-09-27 08:19 | XMS_ITS | Encounter Summary ---
Author Organization [facility] Address [address] [place] [address] Phone Care Team Providers Care Radiology Asst Name Role Phone Dyana Mao MD Primary Care Provider [phone]- [phone] Encounter Details Date Type Department Care Team (Late st Contact Info) Description 02/18/2011 Documentation [facility] [place] [address] [place] [address] Family Medicine, Physician [address] [place], [place] [phone] Social History Tobacco Use Types Packs/Day Years [...] on filedocumented in this encounter Care Teams Radiology Asst Relationship Specialty Start Date End Date Dyana Mao MD [address] [place], [place] [address] [address] PCP - General 01/14/17 08/04/22 documented as of this encounter
--- OUTSIDE RECORDS SUMMARY | 2024-09-27 08:19 | XMS_ITS | Encounter Summary ---
Author Organization [facility] Address [address] [place] [address] Phone Care Team Providers Care Sports Medicine Physician Name Role Phone Dyana Mao MD Primary Care Provider [phone] Encounter Details Date Type Department Care Team (Late st Contact Info) Description 02/18/2011 Documentation [facility] [place] Medicine [address] [place] [address] Family Medicine, Physician [address] [place], [place] [phone] Social History Tobacco Use Types Packs/Day Years [...] on filedocumented in this encounter Care Teams Sports Medicine Physician Relationship Specialty Start Date End Date Dyana Mao MD [address] [place], [place] [address] [address] PCP - General 01/14/17 08/04/22 documented as of this encounter
--- OUTSIDE RECORDS SUMMARY | 2024-09-27 08:19 | XMS_ITS | Encounter Summary ---
Author Organization [facility] Address [address] [place] [address] Phone Care Team Providers Care Sanitation Worker Hosing Machinery Name Role Phone Dyana Mao MD Primary Care Provider [phone] Encounter Details Date Type Department Care Team (Late st Contact Info) Description 02/18/2011 Documentation [facility] [place] [facility] Family Medicine [address] [place] [address] Family Medicine, Physician [address] [place], [place] [phone] Social History Tobacco Use Types Packs/Day Years [...] on filedocumented in this encounter Care Teams Sanitation Worker Hosing Machinery Relationship Specialty Start Date End Date Dyana Mao MD [address] [place], [place] [address]FA[place] [address] PCP - General 01/14/17 08/04/22 documented as of this encounter
--- OUTSIDE RECORDS SUMMARY | 2024-09-27 08:19 | XMS_ITS | Continuity of Care Document ---
Author Organization [facility] Address [address] [place] [address] Phone Care Team Providers Care Sumo Wrestler Name Role Phone Z-Converted, Provider Unavailable Unavailabl e Medications Medication Instructions Dosage Effective Dates (start - stop) Status Comments Suboxone 2 mg-0.5 mg Sublingual Tab 1 sublingual daily - Active Advance Directives Directive Yes / No Effective Date File Name No Information Encounters Encounter Description Practice Location Reason(s) For Visit Diagnoses Date Provider Providers Copied on Encounter [facility], [address] [place] [address],[address], [place], [place], [id number], [place] tel:[phone] Converted Locations No Information 8 Z-Convert ed Provider. . [facility], [address] [place] [address],[address], [place], [place], [id number], [place] tel:[phone] [facility] Need for other specified prophylactic measure 8 Z-Convert ed Provider. . [facility], [address] [place] [address],[address], [place], [place], [id number], [place] tel:[phone] [facility] Carrier or suspected carrier of hepatitis c 8 Z-Convert ed Provider. . [facility], [address] [place] [address],[address], [place], [place], [id number], [place] tel:[phone] [facility] Nonspecific abnormal results of function study of liverNondepende nt cannabis abuse, episodic use Reilly-1 3-200 8 Z-Convert ed Provider. . Jasondiane Rao [facility], [address], [place], [place], [id number], [place] tel:[phone] [facility] Opioid type dependence, unspecified use 200 8 Z-Convert ed Provider. . Family History Family Member Type Diagnosis Age At Onset No Information Immunizations Vaccine Date Status Comments Influenza Vaccine administered Source: Emily w Immunization Record HEPATITIS A administered Source: New Imm unization Record TDAP administered Source: New Imm unization Record Payers Payer name Insurance type Covered libertarian ID Authoriza tion(s) No Information Social History [...]
--- OUTSIDE RECORDS SUMMARY | 2024-09-27 08:19 | XMS_ITS | Encounter Summary ---
Author Organization [facility] Address [address] [place] [address] Phone Care Team Providers Care Informaticist Name Role Phone Dyana Mao MD Primary Care Provider [phone]- [phone] Encounter Details Date Type Department Care Team (Late st Contact Info) Description 02/18/2011 Documentation [facility] [place] [address] [place] [address] Family Medicine, Physician [address] [place], [place] [phone] Social History Tobacco Use Types Packs/Day Years [...] on filedocumented in this encounter Care Teams Informaticist Relationship Specialty Start Date End Date Dyana Mao MD [address] [place], [place] [address] [address] PCP - General 01/14/17 08/04/22 documented as of this encounter
--- OUTSIDE RECORDS SUMMARY | 2024-09-27 08:19 | XMS_ITS | Clinical Summary ---
Author Organization [facility] Address [address] [place] [address] Phone Care Team Providers Care Inside Sales Director Name Role Phone Unavailable Primary Care Provider [...]
--- OUTSIDE RECORDS SUMMARY | 2024-09-27 08:19 | XMS_ITS | Encounter Summary ---
Author Organization [facility] Address [address] [place] [address] Phone Care Team Providers Care Manager Aerospace Name Role Phone Dyana Mao MD Primary Care Provider [phone]- [phone] Encounter Details Date Type Department Care Team (Late st Contact Info) Description 02/18/2011 Documentation [facility] [place] [address] [place] [address] Family Medicine, Physician [address] [place], [place] [phone] Social History Tobacco Use Types Packs/Day Years [...] filedocumented in this encounter Care Teams Manager Aerospace Relationship Specialty Start Date End Date Dyana Mao MD [address] [place], [place] [address] [address] PCP - General 01/14/17 08/04/22 documented as of this encounter
--- OUTSIDE RECORDS SUMMARY | 2024-09-27 08:19 | XMS_ITS | Encounter Summary ---
Author Organization [facility] Address [address] [place] [address] Phone Care Team Providers Care Police Captain Senior Name Role Phone Dyana Mao MD Primary Care Provider [phone]- [phone] Encounter Details Date Type Department Care Team (Late st Contact Info) Description 02/18/2011 Documentation [facility] [place] [address] [place] [address] Family Medicine, Physician [address] [place], [place] [phone] Social History Tobacco Use Types Packs/Day Years [...] filedocumented in this encounter Care Teams Police Captain Senior Relationship Specialty Start Date End Date Dyana Mao MD [address] [place], [place] [address] [address] PCP - General 01/14/17 08/04/22 documented as of this encounter
--- OUTSIDE RECORDS SUMMARY | 2024-09-27 08:19 | XMS_ITS | Encounter Summary ---
Author Organization [facility] Address [address] [place] [address] Phone Care Team Providers Care Privacy Specialist Name Role Phone Dyana Mao MD Primary Care Provider [phone]- [phone] Encounter Details Date Type Department Care Team (Late st Contact Info) Description 02/18/2011 [place] [facility] [place] [address] [place] [address] Family Medicine, Physician [address] [place], [place] [phone] Social History Tobacco Use Types Packs/Day Years [...] on filedocumented in this encounter Care Teams Privacy Specialist Relationship Specialty Start Date End Date Dyana Mao MD [address] [place], [place] [address] [address] PCP - General 01/14/17 08/04/22 documented as of this encounter
--- OUTSIDE RECORDS SUMMARY | 2024-09-27 08:20 | XMS_ITS | Encounter Summary ---
Author Organization [facility] Address [address] [place] [address] Phone Care Team Providers Care Manager Investigations Name Role Phone Dyana Mao MD Primary Care Provider [phone]- [phone] Encounter Details Date Type Department Care Team (Late st Contact Info) Description 02/18/2011 Documentation [facility] [place] [address] [place] [address] Family Medicine, Physician [address] [place], [place] [phone] Social History Tobacco Use Types Packs/Day Years [...] filedocumented in this encounter Care Teams Manager Investigations Relationship Specialty Start Date End Date Dyana Mao MD [address] [place], [place] [address] [address] PCP - General 01/14/17 08/04/22 documented as of this encounter
--- OUTSIDE RECORDS SUMMARY | 2024-09-27 08:20 | XMS_ITS | Encounter Summary ---
Author Organization [facility] Address [address] [place] [address] Phone Care Team Providers Care Gage Maker Name Role Phone Dyana Mao MD Primary Care Provider [phone]- [phone] Encounter Details Date Type Department Care Team (Late st Contact Info) Description 02/18/2011 Documentation [facility] [place] [address] [place] [address] Family Medicine, Physician [address] [place], [place] [phone] Social History Tobacco Use Types Packs/Day Years [...] on filedocumented in this encounter Care Teams Gage Maker Relationship Specialty Start Date End Date Dyana Mao MD [address] [place], [place] [address] [address] PCP - General 01/14/17 08/04/22 documented as of this encounter
--- OUTSIDE RECORDS SUMMARY | 2024-09-27 08:20 | XMS_ITS | Encounter Summary ---
Author Organization [facility] Address [address] [place] [address] Phone Care Team Providers Care Infantry Senior Sergeant Name Role Phone Dyana Mao MD Primary Care Provider [phone]- [phone] Encounter Details Date Type Department Care Team (Late st Contact Info) Description 02/18/2011 Documentation [facility] [place] Family Medicine [address] [place] [address] Family Medicine, Physician [address] [place], [place] [phone] Social History Tobacco Use Types Packs/Day Years [...] on filedocumented in this encounter Care Teams Infantry Senior Sergeant Relationship Specialty Start Date End Date Dyana Mao MD [address] [place], [place] [address] [address] PCP - General 01/14/17 08/04/22 documented as of this encounter
--- OUTSIDE RECORDS SUMMARY | 2024-09-27 08:20 | XMS_ITS | Encounter Summary ---
Author Organization [facility] Address [address] [place] [address] Phone Care Team Providers Care Art Instructor Name Role Phone Dyana Mao MD Primary Care Provider [phone]- [phone] Encounter Details Date Type Department Care Team (Late st Contact Info) Description 02/18/2011 Documentation [facility] [place] Medicine [address] [place] [address] Family Medicine, Physician [address] [place], [place] [phone] Social History Tobacco Use Types Packs/Day Years [...] on filedocumented in this encounter Care Teams Art Instructor Relationship Specialty Start Date End Date Dyana Mao MD [address] [place], [place] [address] [address] PCP - General 01/14/17 08/04/22 documented as of this encounter
--- OUTSIDE RECORDS SUMMARY | 2024-09-27 08:20 | XMS_ITS | Encounter Summary ---
Author Organization [facility] Address [address] [place] [address] Phone Care Team Providers Care Foundation Drill Operator Helper Name Role Phone Dyana Mao MD Primary Care Provider [phone]- [phone] Encounter Details Date Type Department Care Team (Late st Contact Info) Description 02/18/2011 [place]ation [facility] [place] [address] [place] [address] Family Medicine, Physician [address] [place], [place] [phone] Social History Tobacco Use Types Packs/Day Years [...] on filedocumented in this encounter Care Teams Foundation Drill Operator Helper Relationship Specialty Start Date End Date Dyana Mao MD [address] [place], [place] [address] [address] PCP - General 01/14/17 08/04/22 documented as of this encounter
== END 2024-09-26 08:09 | disposition home or self-care (01) ==
LOC: HO.HOSX 08:08
PROVIDERS: Visit Provider Physician Assistant
DX: M89.8X1 Other specified disorders of bone, shoulder (principal); S42.001A Fracture of unspecified part of right clavicle, initial encounter for closed fracture; W01.0XXA Fall on same level from slipping, tripping and stumbling without subsequent striking against object, initial encounter; Y93.01 Activity, walking, marching and hiking; Y92.002 Bathroom of unspecified non-institutional (private) residence as the place of occurrence of the external cause; Y99.9 Unspecified external cause status
CPT/HCPCS: 73000; 99202

== ENCOUNTER 2024-09-26 11:54 | Outpatient (AMB) | payer OTHER, SELFPAY ==
--- NOTE | 2024-09-26 12:00 | MHC.OFFVIS ---
Vital Signs 09/26/24 12:10 Handedness Right Intake Visit Reasons: FC- ER f/u-RT Clavicle fx, DOI 09/14/24 Intake Note: Janell is a 33 year old right hand dominant female who presents today as a new patient for evaluation of a right clavicle fracture, DOI 09/14/24. Patient presented to [facility] ED on 09/14/24 complaining of right shoulder pain status post possible syncopal episode. Patient was instructed to wear provided sling at all times, removing it to sleep and shower. She was also instructed to continue to move her hand, fingers, and wrist, and elbow to avoid developing frozen joints. Patient was advised to ice her clavicle and to take Tylenol and ibuprofen. Patient reports today Allergies No Known Allergies [No Known Allergies*] Allergy (Verified 09/14/24 09:31) HPI HPI FC- ER f/u-RT Clavicle fx, DOI 09/14/24: Details: Ms. Moore is a 33-year-old right-hand dominant female who presents to the office today for evaluation of a right clavicle fracture that she sustained on 09/14/2024. She reports that she was getting out of bed to use the restroom at night tripped fell and directly onto the left shoulder. She presented to emergency department where x-rays were obtained and she was found to have a distal clavicle fracture. She was placed into a sling and discharged to follow up with orthopedics outpatient for further evaluation and treatment. [facility] Medical History Cocaine abuse Opioid use disorder Injection of illicit drug within last 12 months Opiate dependence MRSA (methicillin resistant staph aureus) culture positive Social History Household Members: Family Housing: House Do you presently have visiting nurse or other home services: No Alcohol intake: never Patient Tobacco Use Status: Never used Tobacco Tobacco use type: Cigarette Cigarettes Per Day: 2 Substance Use Type: Crack/Cocaine, Heroin and Opiates service: No Review of Systems Const All systems reviewed & are unremarkable except as noted in HPI and below Physical Exam Const General: cooperative, healthy appearing and no acute distress Resp Effort & Inspection: normal respiratory effort and able to speak in complete sentences Skin Lesions: no lesions Rashes: no rashes Extrem Other: Right upper extremity 80 degrees forward flexion and abduction. Pain with cross-body reach. No skin tenting or evidence of open fracture. Resolving ecchymosis along the anterior aspect of the chest. NVI. Assessment & Plan Assessment & Plan (1) Right clavicle fracture: Code(s): S42.001A - Fracture of unspecified part of right clavicle, initial encounter for closed fracture Category: Medical Plan Ms. Moore is a 33-year-old right-hand dominant female who presents to the office today for evaluation of a right clavicle fracture that she sustained on 09/14/2024. She reports that she was getting out of bed to use the restroom at night tripped fell and directly onto the left shoulder. She presented to emergency department where x-rays were obtained and she was found to have a distal clavicle fracture. She was placed into a sling and discharged to follow up with orthopedics outpatient for further evaluation and treatment. While the office today, we discussed continuing the sling for comfort only. I encouraged the patient to come out and work on gentle range of motion. I have also placed a physical therapy order to work on gentle range of motion. Avoid overhead reaching lifting pushing or pulling at this time. She will follow up in 4 weeks with repeat x-rays, sooner if needed. X-rays of the right clavicle which were obtained while in the office today and were reviewed by me, Nickie Babcock PA-C, revealed right distal clavicle fracture. Orders: Orders XR clavicle RT Today M89.8X1 - Other specified disorders of bone, shoulder Coding Level of Care Code New Pt Level 3 (78114) Diagnoses Right clavicle fracture S42.001A
--- OUTSIDE RECORDS SUMMARY | 2024-09-26 14:23 | XMS_ITS | Encounter Summary ---
Author Organization [facility] Address [address] [place] [address] Phone Care Team Providers Care Speech Language Assistant Name Role Phone Dyana Mao MD Primary Care Provider [phone]- [phone] Encounter Details Date Type Department Care Team (Late st Contact Info) Description 02/18/2011 Documentation [facility] [place] [address] [place] [address] Family Medicine, Physician [address] [place], [place] [phone] Social History Tobacco Use Types Packs/Day Years [...] on filedocumented in this encounter Care Teams Speech Language Assistant Relationship Specialty Start Date End Date Dyana Mao MD [address] [place], [place] [address] [address] PCP - General 01/14/17 08/04/22 documented as of this encounter
--- OUTSIDE RECORDS SUMMARY | 2024-09-26 14:23 | XMS_ITS | Encounter Summary ---
Author Organization [facility] Address [address] [place] [address] Phone Care Team Providers Care Patient Financial Rep Name Role Phone Dyana Mao MD Primary Care Provider [phone]- [phone] Encounter Details Date Type Department Care Team (Late st Contact Info) Description 02/18/2011 Documentation [facility] [place] Family Medicine [address] [place] [address] Family Medicine, Physician [address] [place], [place] [phone] Social History Tobacco Use Types Packs/Day Years [...] on filedocumented in this encounter Care Teams Patient Financial Rep Relationship Specialty Start Date End Date Dyana Mao MD [address] [place], [place] [address] [address] PCP - General 01/14/17 08/04/22 documented as of this encounter
--- OUTSIDE RECORDS SUMMARY | 2024-09-26 14:23 | XMS_ITS | Continuity of Care Document ---
Author Organization [facility] Address [address] [place] [address] Phone Care Team Providers Care Senior Windows Engineer Name Role Phone Z-Converted, Provider Unavailable Unavailabl e Medications Medication Instructions Dosage Effective Dates (start - stop) Status Comments Suboxone 2 mg-0.5 mg Sublingual Tab 1 sublingual daily - Active Advance Directives Directive Yes / No Effective Date File Name No Information Encounters Encounter Description Practice Location Reason(s) For Visit Diagnoses Date Provider Providers Copied on Encounter [facility], [address] [place] [address],[address], [place], [place], [id number], [place] tel:[phone] Converted Locations No Information 8 Z-Convert ed Provider. . [facility], [address] [place] [address],[address], [place], [place], [id number], [place] tel:[phone] [facility] Need for other specified prophylactic measure 8 Z-Convert ed Provider. . [facility], [address] [place] [address],[address], [place], [place], [id number], [place] tel:[phone] [facility] Carrier or suspected carrier of hepatitis c 8 Z-Convert ed Provider. . [facility], [address] [place] [address],[address], [place], [place], [id number], [place] tel:[phone] [facility] Nonspecific abnormal results of function study of liverNondepende nt cannabis abuse, episodic use Reilly-1 3-200 8 Z-Convert ed Provider. . Jasondiane Rao [facility], [address], [place], [place], [id number], [place] tel:[phone] [facility] Opioid type dependence, unspecified use 200 [...]
--- OUTSIDE RECORDS SUMMARY | 2024-09-26 14:23 | XMS_ITS | Encounter Summary ---
Author Organization [facility] Address [address] [place] [address] Phone Care Team Providers Care Ethylene Plant Operator Name Role Phone Dyana Mao MD Primary Care Provider [phone]- [phone] Encounter Details Date Type Department Care Team (Late st Contact Info) Description 02/18/2011 Documentation [facility] [place] Medicine [address] [place] [address] Family Medicine, Physician [address] [place], [place] [phone] Social History Tobacco Use Types Packs/Day Years [...] on filedocumented in this encounter Care Teams Ethylene Plant Operator Relationship Specialty Start Date End Date Dyana Mao MD [address] [place], [place] [address] [address] PCP - General 01/14/17 08/04/22 documented as of this encounter
--- OUTSIDE RECORDS SUMMARY | 2024-09-26 14:23 | XMS_ITS | Encounter Summary ---
Author Organization [facility] Address [address] [place] [address] Phone Care Team Providers Care Director Home Name Role Phone Dyana Mao MD Primary Care Provider [phone]- [phone] Encounter Details Date Type Department Care Team (Late st Contact Info) Description 02/18/2011 Documentation [facility] [place] Family Medicine [address] [place] [address] Family Medicine, Physician [address] [place], [place] [phone] Social History Tobacco Use Types Packs/Day Years [...] filedocumented in this encounter Care Teams Director Home Relationship Specialty Start Date End Date Dyana Mao MD [address] [place], [place] [address] [address] PCP - General 01/14/17 08/04/22 documented as of this encounter
--- OUTSIDE RECORDS SUMMARY | 2024-09-26 14:23 | XMS_ITS | Encounter Summary ---
Author Organization [facility] Address [address] [place] [address] Phone Care Team Providers Care Electroplating Laborer Name Role Phone Dyana Mao MD Primary Care Provider [phone]- [phone] Encounter Details Date Type Department Care Team (Late st Contact Info) Description 02/18/2011 Documentation [facility] [place] [address] [place] [address] Family Medicine, Physician [address] [place], [place] [phone] Social History Tobacco Use Types Packs/Day Years [...] on filedocumented in this encounter Care Teams Electroplating Laborer Relationship Specialty Start Date End Date Dyana Mao MD [address] [place], [place] [address] [address] PCP - General 01/14/17 08/04/22 documented as of this encounter
--- OUTSIDE RECORDS SUMMARY | 2024-09-26 14:23 | XMS_ITS | Clinical Summary ---
Author Organization [facility] Address [address] [place] [address] Care Team Providers Care Fire Boat Engineer Name Role Phone Hailey Bernal MD Primary Care Provider [phone] Allergies No known active allergies Medications methadone [...] 01/29/2021 Overview (05/23/2024): MRSA pos culture: seen [facility] [place]2021, pt left AMA Methadone use [...] site abscess; COMMENT: MRSA pos culture: seen [facility] [place]/18/2021, pt left AMA Family History [...] * HIV Screening (05/05/2020) HIV Screening abstracted [facility] Provider HEALTH MAINTENANCE Final Result * Cervical Cancer Screening: HPV (03/01/2017) Pathologist [facility] Cervical Cancer Screening: HPV no interpretation , abstracted [facility] Provider HEALTH MAINTENANCE Final Result * Hepatitis C Screening (08/14/2016) Hepatitis C Screening abstracted Historical Provider HEALTH MAINTENANCE Final Result from Last 3 Months or Most Recently Relevant to Health Maintenance Care Teams Fire Boat Engineer Relationship Specialty Start Date End Date Hailey Bernal MD [address] [place] [address] PCP - General Internal Medicine 07/23/19
--- OUTSIDE RECORDS SUMMARY | 2024-09-26 14:23 | XMS_ITS | Encounter Summary ---
Author Organization [facility] Address [address] [place] [address] Phone Care Team Providers Care Repair Table Operator Name Role Phone Dyana Mao MD Primary Care Provider [phone]- [phone] Encounter Details Date Type Department Care Team (Late st Contact Info) Description 02/18/2011 Documentation [facility] [place] Family Medicine [address] [place] [address] Family Medicine, Physician [address] [place], [place] [phone] Social History Tobacco Use Types Packs/Day Years [...] on filedocumented in this encounter Care Teams Repair Table Operator Relationship Specialty Start Date End Date Dyana Mao MD [address] [place], [place] [address] [address] PCP - General 01/14/17 08/04/22 documented as of this encounter
--- OUTSIDE RECORDS SUMMARY | 2024-09-26 14:23 | XMS_ITS | Encounter Summary ---
Author Organization [facility] Address [address] [place] [address] Phone Care Team Providers Care Poultry Process Worker Name Role Phone Dyana Mao MD Primary Care Provider [phone]- [phone] Encounter Details Date Type Department Care Team (Late st Contact Info) Description 02/18/2011 Documentation [facility] [place] Family Medicine [address] [place] [address] Family Medicine, Physician [address] [place], [place] [phone] Social History Tobacco Use Types Packs/Day Years [...] on filedocumented in this encounter Care Teams Poultry Process Worker Relationship Specialty Start Date End Date Dyana Mao MD [address] [place], [place] [address] [address] PCP - General 01/14/17 08/04/22 documented as of this encounter
--- OUTSIDE RECORDS SUMMARY | 2024-09-26 14:23 | XMS_ITS | Encounter Summary ---
Author Organization [facility] Address [address] [place] [address] Phone Care Team Providers Care Check Examiner Name Role Phone Dyana Mao MD Primary Care Provider [phone]- [phone] Encounter Details Date Type Department Care Team (Late st Contact Info) Description 02/18/2011 Documentation [facility] [place] Family Medicine [address] [place] [address] Family Medicine, Physician [address] [place], [place] [phone] Social History Tobacco Use Types Packs/Day Years [...] on filedocumented in this encounter Care Teams Check Examiner Relationship Specialty Start Date End Date Dyana Mao MD [address] [place], [place] [address] [address] PCP - General 01/14/17 08/04/22 documented as of this encounter
--- OUTSIDE RECORDS SUMMARY | 2024-09-26 14:23 | XMS_ITS | Encounter Summary ---
Author Organization [facility] Address [address] [place] [address] Phone Care Team Providers Care Statistical Methods Teacher Name Role Phone Dyana Mao MD Primary Care Provider [phone]- [phone] Encounter Details Date Type Department Care Team (Late st Contact Info) Description 02/18/2011 Documentation [facility] [place] [address] [place] [address] Family Medicine, Physician [address] [place], [place] [phone] Social History Tobacco Use Types Packs/Day Years [...] on filedocumented in this encounter Care Teams Statistical Methods Teacher Relationship Specialty Start Date End Date Dyana Mao MD [address] [place], [place] [address] [address] PCP - General 01/14/17 08/04/22 documented as of this encounter
--- OUTSIDE RECORDS SUMMARY | 2024-09-26 14:23 | XMS_ITS | Clinical Summary ---
Author Organization [facility] Address [address] [place] [address] Phone Care Team Providers Care Linux Kernel Engineer Name Role Phone Unavailable Primary Care Provider [...]
--- OUTSIDE RECORDS SUMMARY | 2024-09-26 14:23 | XMS_ITS | Encounter Summary ---
Author Organization [facility] Address [address] [place] [address] Phone Care Team Providers Care Live In Housekeeper Nanny Name Role Phone Dyana Mao MD Primary Care Provider [phone]- [phone] Encounter Details Date Type Department Care Team (Late st Contact Info) Description 02/18/2011 Documentation [facility] [place] Family Medicine [address] [place] [address] Family Medicine, Physician [address] [place], [place] [phone] Social History Tobacco Use Types Packs/Day Years [...] on filedocumented in this encounter Care Teams Live In Housekeeper Nanny Relationship Specialty Start Date End Date Dyana Mao MD [address] [place], [place] [address] [address] PCP - General 01/14/17 08/04/22 documented as of this encounter
--- OUTSIDE RECORDS SUMMARY | 2024-09-26 14:23 | XMS_ITS | Encounter Summary ---
Author Organization [facility] Address [address] [place] [address] Phone Care Team Providers Care Roof Cement And Paint Maker Name Role Phone Dyana Mao MD Primary Care Provider [phone]- [phone] Encounter Details Date Type Department Care Team (Late st Contact Info) Description 02/18/2011 Documentation [facility] [place] Family Medicine [address] [place] [address] Family Medicine, Physician [address] [place], [place] [phone] Social History Tobacco Use Types Packs/Day Years [...] on filedocumented in this encounter Care Teams Roof Cement And Paint Maker Relationship Specialty Start Date End Date Dyana Mao MD [address] [place], [place] [address] [address] PCP - General 01/14/17 08/04/22 documented as of this encounter
--- OUTSIDE RECORDS SUMMARY | 2024-09-26 14:23 | XMS_ITS | Encounter Summary ---
Author Organization [facility] Address [address] [place] [address] Phone Care Team Providers Care Group Product Manager Name Role Phone Dyana Mao MD Primary Care Provider [phone]- [phone] Encounter Details Date Type Department Care Team (Late st Contact Info) Description 02/18/2011 Documentation [facility] [place] [address] [place] [address] Family Medicine, Physician [address] [place], [place] [phone] Social History Tobacco Use Types Packs/Day Years [...] on filedocumented in this encounter Care Teams Group Product Manager Relationship Specialty Start Date End Date Dyana Mao MD [address] [place], [place] [address] [address] PCP - General 01/14/17 08/04/22 documented as of this encounter
--- OUTSIDE RECORDS SUMMARY | 2024-09-26 14:23 | XMS_ITS | Encounter Summary ---
Author Organization [facility] Address [address] [place] [address] Phone Care Team Providers Care Laundry Tub Maker Name Role Phone Dyana Mao MD Primary Care Provider [phone]- [phone] Encounter Details Date Type Department Care Team (Late st Contact Info) Description 02/18/2011 Documentation [facility] [place] [address] [place] [address] Family Medicine, Physician [address] [place], [place] [phone] Social History Tobacco Use Types Packs/Day Years [...] on filedocumented in this encounter Care Teams Laundry Tub Maker Relationship Specialty Start Date End Date Dyana Mao MD [address] [place], [place] [address] [address] PCP - General 01/14/17 08/04/22 documented as of this encounter
--- OUTSIDE RECORDS SUMMARY | 2024-09-26 14:23 | XMS_ITS | Encounter Summary ---
Author Organization [facility] Address [address] [place] [address] Phone Care Team Providers Care Double Needle Stitcher Name Role Phone Dyana Mao MD Primary Care Provider [phone]- [phone] Encounter Details Date Type Department Care Team (Late st Contact Info) Description 02/18/2011 Documentation [facility] [place] [address] [place] [address] Family Medicine, Physician [address] [place], [place] [phone] Social History Tobacco Use Types Packs/Day Years [...] on filedocumented in this encounter Care Teams Double Needle Stitcher Relationship Specialty Start Date End Date Dyana Mao MD [address] [place], [place] [address] [address] PCP - General 01/14/17 08/04/22 documented as of this encounter
--- OUTSIDE RECORDS SUMMARY | 2024-09-26 14:23 | XMS_ITS | Encounter Summary ---
Author Organization [facility] Address [address] [place] [address] Phone Care Team Providers Care Ux Design Manager Name Role Phone Dyana Mao MD Primary Care Provider [phone]- [phone] Encounter Details Date Type Department Care Team (Late st Contact Info) Description 02/18/2011 Documentation [facility] [place] [address] [place] [address] Family Medicine, Physician [address] [place], [place] [phone] Social History Tobacco Use Types Packs/Day Years [...] on filedocumented in this encounter Care Teams Ux Design Manager Relationship Specialty Start Date End Date Dyana Mao MD [address] [place], [place] [address] [address] PCP - General 01/14/17 08/04/22 documented as of this encounter
--- OUTSIDE RECORDS SUMMARY | 2024-09-26 14:23 | XMS_ITS | Encounter Summary ---
Author Organization [facility] Address [address] [place] [address] Phone Care Team Providers Care Overhead Crane Inspector Name Role Phone Dyana Mao MD Primary Care Provider [phone]- [phone] Encounter Details Date Type Department Care Team (Late st Contact Info) Description 02/18/2011 Documentation [facility] [facility] [place] [address] [place] [address] Family Medicine, Physician [address] [place], [place] [phone] Social History Tobacco Use Types Packs/Day Years [...] on filedocumented in this encounter Care Teams Overhead Crane Inspector Relationship Specialty Start Date End Date Dyana Mao MD [address] [place], [place] [address] [address] PCP - General 01/14/17 08/04/22 documented as of this encounter
--- OUTSIDE RECORDS SUMMARY | 2024-09-26 14:23 | XMS_ITS | Encounter Summary ---
Author Organization [facility] Address [address] [place] [address] Phone Care Team Providers Care Sales Support Representative Name Role Phone Dyana Mao MD Primary Care Provider [phone] Encounter Details Date Type Department Care Team (Late st Contact Info) Description 01/20/2017 Conversion Encounter [facility] [place] [address] [place] [address] Social History Tobacco Use Types Packs/Day Years [...] on filedocumented in this encounter Care Teams Sales Support Representative Relationship Specialty Start Date End Date Dyana Mao MD [address] [place] [address] PCP - General 01/14/17 08/04/22 documented as of this encounter
== END 2024-09-26 12:10 | disposition home or self-care (01) ==
LOC: HO.HOS 11:55
PROVIDERS: PCP Internal Medicine; Visit Provider Physician Assistant
DX: S42.001A Fracture of unspecified part of right clavicle, initial encounter for closed fracture (principal)
CPT/HCPCS: 99203

== ENCOUNTER → 2024-09-26 11:57 | Outpatient (BNV) | payer OTHER, SELFPAY | PROVIDERS: Visit Provider Radiology Diagnostic Radiology | DX: S42.001A Fracture of unspecified part of right clavicle, initial encounter for closed fracture (principal) | CPT/HCPCS: 73000 ==

== ENCOUNTER 2024-10-26 08:17 | Outpatient (REF) | payer OTHER, SELFPAY ==
--- OUTSIDE RECORDS SUMMARY | 2024-10-30 08:21 | XMS_ITS | Clinical Summary ---
Author Organization [facility] it Address [address] [place] [address] Care Team Providers Care Business Analyst Consultant Name Role Phone Hailey Bernal MD Primary Care Provider [phone] Allergies No known active allergies Medications methadone [...] 01/29/2021 Overview (05/23/2024): MRSA pos culture: seen [facility] 01/18/2021, pt left AMA Methadone use [...] site abscess; COMMENT: MRSA pos culture: seen [facility] 01/18/2021, pt left AMA Family History [...] * HIV Screening (05/05/2020) HIV Screening abstracted [facility] Provider HEALTH MAINTENANCE Final Result * Cervical Cancer Screening: HPV (03/01/2017) Pathologist [facility] Cervical Cancer Screening: HPV no interpretation , abstracted [facility] Provider HEALTH MAINTENANCE Final Result * Hepatitis C Screening (08/14/2016) Hepatitis C Screening abstracted Historical Provider HEALTH MAINTENANCE Final Result from Last 3 Months or Most Recently Relevant to Health Maintenance Care Teams Business Analyst Consultant Relationship Specialty Start Date End Date Hailey Bernal MD [address] [place] [address] PCP - General Internal Medicine 07/23/19
== END 2024-10-26 08:18 | disposition home or self-care (01) ==
LOC: HO.HOSX 08:17
PROVIDERS: Visit Provider Physician Assistant
DX: Z13.89 Encounter for screening for other disorder (principal)